=== PATIENT | male | born 1960 | race Caucasian/White ===

== ENCOUNTER 2018-07-02 12:39 | Inpatient (IN) | payer MEDICARE ==
[2018-07-02 13:18] LABS: #Eosinphils 0.1 thou/uL (0.0-0.7); #Lymphocytes 0.8 thou/uL (1.20-3.40); #Monocytes 0.6 thou/uL (0.11-0.59); %Basophils 0.7 % (0.0-1.0); %Eosinophils 2.3 % (0.0-10.0); %Lymphocytes 13.7 % (21.0-51.0); %Monocytes 10.2 % (0.0-10.0); %Neutrophils 73.2 % (42.0-75.0); Hemoglobin 11.4 g/dL (14.0-18.0); Mean Corpuscular HGB CONC 33.5 g/dL (32.0-36.0); Mean Corpuscular Hemoglobin 30.2 pg (27.0-31.0); Mean Corpuscular Volume 90.1 fL (78.0-98.0); Mean Platelet Volume 9.3 fL (7.4-10.4); Platelet Count 138 thou/uL (130-400); RBC Distribution Width 11.7 % (11.5-14.5); Red Blood Cell (RBC) Count 3.76 mill/uL (4.70-6.10); White Blood Cell (WBC) Count 5.5 thou/uL (4.8-10.8)
[2018-07-02 13:50] LABS: ALT (SGPT) 10 U/L (8-55); AST (SGOT) 12 U/L (5-34); Alkaline Phosphatase 37 U/L (40-150); Anion Gap 15 mmol/L (10-20); BUN (Urea Nitrogen) 44 mg/dL (8.4-25.7); Bilirubin, Total 0.9 mg/dL (0.2-1.2); Calc. Creatinine Clearance 0 mL/min (70-130); Calcium 8.4 mg/dL (7.8-10.44); Carbon Dioxide 27 mmol/L (22-29); Chloride 95 mmol/L (98-107); Estimated GFR-MDRD 6; Globulin 3.4 g/dL (2.4-3.5); Glucose 109 mg/dL (70-105); Potassium 3.2 mmol/L (3.5-5.1); Protein, Total 7.4 g/dL (6.0-8.3); Sodium 134 mmol/L (136-145)
--- NOTE | 2018-07-02 14:01 | RAD ---
CHEST 1 VIEW: HISTORY: Nausea. Diarrhea. COMPARISON: 04/23/2017. FINDINGS: Cardiac silhouette is magnified by projection. Pulmonary vasculature unremarkable. Mediastinum is m idline. No lobar consolidation or evidence of pneumothorax. environmental monitoring technician leads overlie the chest . IMPRESSION: No active cardiopulmonary abnormalities are demonstrated. POS: YASMINH
[2018-07-02 14:46] LABS: Bilirubin Negative (Negative); Blood, Urine Small (Negative); Clarity CLEAR (Clear); Glucose, Urine (Dipstick) 100 mg/dL (Negative); Leukocyte Large (Negative); Nitrite Negative (Negative); Protein, Urine (Dipstick) 100 mg/dL (Neg-Trace); Specific Gravity, Urine 1.007 (1.002-1.036); Urobilinogen 0.2 mg/dL (0.2-1.0)
[2018-07-02 14:49] LABS: Bacteria/HPF None Seen HPF (None Seen); Hyaline Casts/LPF 0-3 HYALINE CAST LPF (0-3 Hyaline); RBC/HPF None Seen HPF (0-3); Squamous Epithelial 0-3 HPF (0-3)
[2018-07-02 15:02] LABS: Transitional Epithelial 0-3 HPF (0-3)
[2018-07-02] MEDS ORDERED: Acetaminophen 650 MG Suppository PR PRN (16:03)
--- NOTE | 2018-07-02 16:35 | HP ---
[facility] [place] CHIEF COMPLAINT: Generalized weakness. HISTORY OF PRESENT ILLNESS: Mr. Lobato is a pleasant 57-year-old gentleman who was seen at [facility] on 07/02/2018. He initially reported that he was sent from [facility] a nd was told that he had a blood infection. 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 Mr. Lobato missed dialysis f or 20 days until he had dialysis 2 days ago. At that time, he reportedly had leukocytosis. He was s tarted on Augmentin, although it is unclear whether Mr. Lobato actually started the medication at home . He told me that he has been feeling short of breath over the last 4 days. He denied any chest brandon n. He denied any nausea or vomiting. He reported occasional cough. He also reports having diarrhea over the last 2 days. He states that he has been taking anti-motility agents at home. He tells me that dialysis center was concerned about an infection and advised him to come to the emergency room. He reports generalized weakness over the last 4 days. He reports that he mainly presented to the em ergency room because of ongoing generalized weakness. REVIEW OF SYSTEMS: All other systems reviewed and found to be negative. PAST MEDICAL HISTORY: Coronary artery disease, status post PCI with stent, end-stage renal disease o n hemodialysis once a week on Mondays, peripheral vascular disease, nonsustained ventricular tachycar al, hypertension, dyslipidemia. PAST SURGICAL HISTORY: Left femoral popliteal bypass, left ankle open reduction and internal fixatio n, AV fistula, cardiac catheterization with stenting and right subclavian hemodialysis catheter place ment. SOCIAL HISTORY: Patient chews tobacco. He denies recreational drug use or alcohol use. FAMILY HISTORY: He denies any family history of coronary artery disease. ALLERGIES: IODINATED CONTRAST MEDIA, LORAZEPAM and NIACIN. CURRENT MEDICATIONS: These need to be clarified, but appear to include Brilinta 90 mg 2 times a day. PHYSICAL EXAMINATION: GENERAL: On examination, Mr. Lobato is awake and alert, not in acute distress. VITAL SIGNS: Blood pressure is 111/77, pulse 99, respiratory rate 14 and oxygen saturation 97% on ro om air. He is afebrile. EYES: No scleral icterus. No conjunctival pallor. ENT: Moist mucosal membranes, no oropharyngeal erythema or exudates. NECK: Supple, nontender, trachea is midline. RESPIRATORY: Accessory muscles of breathing are not active. Chest wall movements are symmetric bila terally. LUNGS: Clear to auscultation without wheeze, rhonchi or crepitations. CARDIOVASCULAR: S1 and S2 are heard, regular. Peripheral pulses are palpable. No carotid bruit, no pericardial rub. ABDOMEN: Soft, nontender, bowel sounds are heard, no hepatomegaly, no splenomegaly. NEUROLOGIC: Cranial nerves II-XII intact. Deep tendon reflexes are 2+. MUSCULOSKELETAL: Power is 5/5 in all 4 extremities. SKIN: No rashes or subcutaneous nodules. He has right arm AV fistula. LYMPHATIC: No cervical lymphadenopathy. PSYCHIATRIC: Normal mood, normal affect, patient is oriented to person, place, and time. IMAGING DATA AND LABORATORY DATA: Mr. Lobato' labs and investigations were reviewed. He had a chest x-ray, which was unremarkable. He has normal white count, normocytic anemia with hemoglobin 11.4, no rmal platelet count, hyponatremia with sodium of 134, hypokalemia with potassium 3.2, elevated blood urea nitrogen of 44, elevated creatinine of 9.51, unremarkable liver profile and urinalysis that is p ositive for leukocyte esterase. ASSESSMENT AND PLAN: Mr. Lobato is a pleasant 57-year-old gentleman who was seen at [facility] on 07/02/2018. His problem list includes: 1. Generalized weakness: Etiology unclear, could be related to urinary tract infection. He will be admitted to the hospital for further management. We will also check a 12-lead electrocardiogram and troponin to rule out cardiac etiology. 2. Urinary tract infection. Urinalysis is consistent with urinary tract infection. We will start h im on ceftriaxone and follow urine cultures. 3. Electrolyte abnormalities: He has hyponatremia and hypokalemia. Nephrology Service is being con sulted for dialysis management and for electrolyte abnormalities. 4. End-stage renal disease on dialysis: Dialysis per Nephrology Service. 5. Coronary artery disease: Patient denies any chest pain. As mentioned earlier, we will check 12- lead electrocardiogram and troponin. I will start him on Brilinta if he is still taking it. Many thanks for allowing me to participate in your patient's care. Please feel free to contact me wi th any questions or concerns. LEVEL OF RISK: Moderate. LEVEL OF COMPLEXITY: Moderate.
[2018-07-02] MEDS: cefTRIAXone\\ROCEPHIN 1 GM in Sodium Chloride 0.9% 100 ML IVPB SCH (17:13)
[2018-07-02 18:26] VITALS: BMI 30.4
[2018-07-02 19:42] LABS: Troponin I 0.015 ng/mL (< 0.028)
[2018-07-02] MEDS: Heparin 5,000 UNITS/ML VIAL SC SCH (20:06)
[2018-07-02] MEDS ORDERED: TICAGRELOR 90 MG TABLET PO SCH (21:00)
[2018-07-02] MEDS: Acetaminophen 325 MG TAB PO PRN (22:52)
[2018-07-03 04:53] LABS: #Eosinphils 0.2 thou/uL (0.0-0.7); #Lymphocytes 0.8 thou/uL (1.20-3.40); #Monocytes 0.7 thou/uL (0.11-0.59); %Eosinophils 4.2 % (0.0-10.0); %Lymphocytes 17.3 % (21.0-51.0); %Monocytes 13.8 % (0.0-10.0); %Neutrophils 63.8 % (42.0-75.0); Hemoglobin 9.7 g/dL (14.0-18.0); Mean Corpuscular HGB CONC 33.6 g/dL (32.0-36.0); Mean Corpuscular Hemoglobin 30.5 pg (27.0-31.0); Mean Corpuscular Volume 90.7 fL (78.0-98.0); Mean Platelet Volume 9.2 fL (7.4-10.4); Platelet Count 124 thou/uL (130-400); RBC Distribution Width 11.7 % (11.5-14.5); Red Blood Cell (RBC) Count 3.16 mill/uL (4.70-6.10); White Blood Cell (WBC) Count 4.7 thou/uL (4.8-10.8)
[2018-07-03 05:09] LABS: Anion Gap 16 mmol/L (10-20); BUN (Urea Nitrogen) 48 mg/dL (8.4-25.7); Calc. Creatinine Clearance 12 mL/min (70-130); Calcium 7.8 mg/dL (7.8-10.44); Carbon Dioxide 25 mmol/L (22-29); Chloride 97 mmol/L (98-107); Estimated GFR-MDRD 5; Glucose 111 mg/dL (70-105); Sodium 135 mmol/L (136-145)
[2018-07-03] MEDS: Heparin 5,000 UNITS/ML VIAL SC SCH ×3 (08:09→20:56)
[2018-07-03] MEDS ORDERED: Potassium Chloride 20 MEQ TAB PO SCH (08:15)
--- NOTE | 2018-07-03 09:59 | PRG ---
DATE OF SERVICE: 07/03/2018 SUBJECTIVE: Patient was seen and examined at bedside and overnight events noted. Patient denies any shortness of breath or chest pain or palpitation. No history of nausea or vomiting or diarrhea or fever or chills or cramps. OBJECTIVE: GENERAL: This is a well-built male in no apparent distress. VITAL SIGNS: Temperature 98.3, pulse 90, respirations 18, blood pressure 96/62. HEENT: Atraumatic, normocephalic. Oral mucosa is moist. NECK: Supple. CARDIOVASCULAR: S1, S2 heard. Rate and rhythm regular. RESPIRATORY: Clear to auscultation. GASTROINTESTINAL: Abdomen is soft. MUSCULOSKELETAL: No tenderness. No edema. DERMATOLOGIC: No skin rash. NEUROLOGIC: Alert and awake and oriented x3. No focal neurologic deficits. Moving all the extremities. PSYCHIATRIC: Mood and affect normal. LABORATORY DATA: Potassium is 3.0, BUN is 40, creatinine 7.0. ASSESSMENT AND PLAN: 1. End-stage renal disease. We will continue on dialysis. 2. Hypokalemia, we will replace. 3. Edema, controlled. 4. Hypertension. 5. Anemia. 6. Bacteremia. MTDD
[2018-07-03] MEDS: cefTRIAXone\\ROCEPHIN 1 GM in Sodium Chloride 0.9% 100 ML IVPB SCH (16:32)
--- NOTE | 2018-07-03 17:36 | PDOC.PN ---
- Subjective Encounter Start Date: 07/03/18 Encounter Start Time: 07:40 Pt seen for followup re: UTI. Feels slightly better. - Objective MAR Reviewed: Yes Vital Signs & Weight: Vital Signs (12 hours) Temp Pulse Resp BP Pulse Ox 07/03/18 16:04 98.7 F 92 18 117/73 95 07/03/18 12:03 98.3 F 92 19 116/72 95 07/03/18 08:00 95 07/03/18 06:58 98.3 F 92 18 95/61 95 Weight Weight 230 lb 4 oz I&O: 07/02/18 07/03/18 07/04/18 06:59 06:59 06:59 Intake Total 1340 Output Total 1450 600 Balance -110 -600 Result Diagrams: 07/04/18 03:59 07/04/18 03:59 Additional Labs: labs reviewed by me Phys Exam - Physical Examination Obese HEENT: moist MMs, sclera anicteric, oral pharynx no lesions, 2+ tonsils Neck: no nodes, no JVD, supple, full ROM Respiratory: clear to auscultation bilateral Cardiovascular: RRR, no rub S1, S2 Gastrointestinal: soft, non-tender, no distention, positive bowel sounds Musculoskeletal: no edema Neurological: moves all 4 limbs Psychiatric: normal affect, A&O x 3 Dx/Plan (1) UTI (urinary tract infection) Status: Acute Comment: continue ceftriaxone, follow cultures (2) ESRD (end stage renal disease) on dialysis Code(s): N18.6 - END STAGE RENAL DISEASE; Z99.2 - DEPENDENCE ON RENAL DIALYSIS Status: Chronic Comment: dialysis per nephrology service (3) HTN (hypertension) Code(s): I10 - ESSENTIAL (PRIMARY) HYPERTENSION Status: Chronic Comment: controlled (4) PVD (peripheral vascular disease) Code(s): I73.9 - PERIPHERAL VASCULAR DISEASE, UNSPECIFIED Status: Chronic Comment: stable (5) CAD (coronary artery disease) Code(s): I25.10 - ATHSCL HEART DISEASE OF [place] CORONARY ARTERY W/O ANG PCTRS Status: Chronic Comment: stable, continue dyslipidemia - Plan * . Review of Systems - Review of Systems Constitutional: weakness. negative: fever, chills, sweats, malaise Respiratory: negative: Cough, Shortness of Breath, SOB with Excertion, Pleuritic Pain, Wheezing Cardiovascular: negative: chest pain, palpitations, orthopnea, paroxysmal nocturnal dyspnea, edema, light headedness Gastrointestinal: negative: Nausea, Vomiting, Abdominal Pain, Diarrhea, Constipation, Melena, Hematochezia Genitourinary: negative: Dysuria, Frequency, Incontinence, Hematuria, Retention Skin: negative: Rash, Lesions, [place], Bruising - Medications/Allergies Allergies/Adverse Reactions: Allergies Allergy/AdvReac Type Severity Reaction Status Date / Time lorazepam [From Ativan] Allergy Unknown Verified 04/24/17 01:02 niacin Allergy Unknown Verified 04/24/17 01:02 Medications: Current Medications Acetaminophen (Tylenol) 650 mg PO Q4H PRN PRN Reason: Headache/Fever/Mild Pain (1-3) Last Admin: 07/02/18 22:52 Dose: 650 mg Acetaminophen (Tylenol) 650 mg MT Q4H PRN PRN Reason: Headache/Fever/Mild Pain (1-3) Heparin Sodium (Porcine) (Heparin) 5,000 units SC TID [facility] Last Admin: 07/03/18 15:04 Dose: 5,000 units Ceftriaxone Sodium 1 gm/ (Sodium Chloride) 100 mls @ 200 mls/hr IVPB 1700 [facility] Last Admin: 07/03/18 16:32 Dose: 100 mls
[2018-07-04] MEDS: Acetaminophen 325 MG TAB PO PRN ×2 (00:21→17:24)
[2018-07-04 04:42] LABS: #Basophils 0.1 thou/uL (0.0-0.2); #Eosinphils 0.2 thou/uL (0.0-0.7); #Monocytes 0.7 thou/uL (0.11-0.59); #Neutrophils 3.9 thou/uL (1.40-6.50); %Basophils 0.9 % (0.0-1.0); %Lymphocytes 17.1 % (21.0-51.0); %Monocytes 12.1 % (0.0-10.0); %Neutrophils 65.8 % (42.0-75.0); Hemoglobin 9.7 g/dL (14.0-18.0); Mean Corpuscular HGB CONC 33.6 g/dL (32.0-36.0); Mean Corpuscular Volume 89.5 fL (78.0-98.0); Mean Platelet Volume 8.9 fL (7.4-10.4); Platelet Count 143 thou/uL (130-400); RBC Distribution Width 11.8 % (11.5-14.5); Red Blood Cell (RBC) Count 3.21 mill/uL (4.70-6.10); White Blood Cell (WBC) Count 5.9 thou/uL (4.8-10.8)
[2018-07-04 04:45] LABS: Anion Gap 15 mmol/L (10-20); BUN (Urea Nitrogen) 50 mg/dL (8.4-25.7); Calc. Creatinine Clearance 11 mL/min (70-130); Calcium 7.7 mg/dL (7.8-10.44); Carbon Dioxide 23 mmol/L (22-29); Chloride 101 mmol/L (98-107); Estimated GFR-MDRD 5; Glucose 104 mg/dL (70-105); Potassium 3.1 mmol/L (3.5-5.1); Sodium 136 mmol/L (136-145)
--- NOTE | 2018-07-04 07:34 | EKG ---
Test Reason : Blood Pressure : / mmHG Vent. Rate : 097 BPM Atrial Rate : 097 BPM P-R Int : 200 ms QRS Dur : 094 ms QT Int : 396 ms P-R-T Axes : 059 -82 071 degrees QTc Int : 502 ms Normal sinus rhythm Low voltage QRS Limb leads Left anterior fascicular block Inferior-posterior infarct (cited on or before 01-DEC-2007) Prolonged QT Abnormal ECG When compared with ECG of 23-APR-2017 19:41, Premature ventricular complexes are no longer Present Confirmed by FAISAL MARTINEZ ([id number]) on 07/04/2018 7:34:41 AM Referred By: Confirmed By:FAISAL MARTINEZ
[2018-07-04] MEDS: Heparin 5,000 UNITS/ML VIAL SC SCH ×3 (09:02→21:58)
[2018-07-04] MEDS: Potassium Chloride 20 MEQ TAB PO SCH ×2 (11:26→15:52)
[2018-07-04] MEDS: Azithromycin 250 MG TAB PO SCH (11:26)
--- NOTE | 2018-07-04 14:32 | PRG ---
DATE OF SERVICE: 07/04/2018 SUBJECTIVE: Patient was seen and examined at bedside and overnight events noted. Patient denies any shortness of breath or chest pain or palpitation. No history of nausea or vomitin g or diarrhea or fever or chills or cramps. OBJECTIVE: GENERAL: This is a well-built male in no apparent distress. VITAL SIGNS: Temperature , pulse 93, respiratory rate 18, blood pressure 124/68. HEENT: Atraumatic, normocephalic. Oral mucosa is moist. NECK: Supple. CARDIOVASCULAR: S1 and S2 heard. Rate and rhythm regular. RESPIRATORY: Clear to auscultation. GASTROINTESTINAL: Abdomen is soft. MUSCULOSKELETAL: No tenderness. No edema. DERMATOLOGIC: No skin rash. NEUROLOGIC: Alert and awake and oriented x3. No focal neurologic deficits. Moving all the extremit ies. PSYCHIATRIC: Mood and affect normal. LABORATORY DATA: Potassium was 3.1, BUN is 50, creatinine is 10.7. ASSESSMENT AND PLAN: 1. End-stage renal disease, on hemodialysis. Patient has once a week dialysis as outpatient. We wi ll continue dialysis. He gets dialysis on Wednesdays. We will continue to monitor and we will have dialysis as tolerated. 2. Hypokalemia. I agree with replacement with cautious monitoring. 3. Edema, controlled. 4. Hypertension. 5. Anemia. 6. Bacteremia. Repeat cultures negative in the hospital, but patient is feeling better with antibiotics. We will co ntinue to monitor and have dialysis as tolerated.
--- NOTE | 2018-07-04 15:37 | PDOC.PN ---
- Subjective Encounter Start Date: 07/04/18 Encounter Start Time: 15:36 Pt seen for followup re: UTI. Weakness better, but still present. - Objective MAR Reviewed: Yes Vital Signs & Weight: Vital Signs (12 hours) Temp Pulse Resp BP Pulse Ox 07/04/18 11:20 98.1 F 93 18 124/68 95 07/04/18 08:00 95 07/04/18 07:22 97.9 F 93 18 96/65 95 07/04/18 04:00 97.7 F 95 18 145/81 H 98 Weight Weight 230 lb 4 oz I&O: 07/03/18 07/04/18 07/05/18 06:59 06:59 06:59 Intake Total 1340 640 240 Output Total 1450 1000 Balance -110 -360 240 Result Diagrams: 07/04/18 03:59 07/04/18 03:59 Additional Labs: Labs reviewed by me Phys Exam - Physical Examination Obese HEENT: moist MMs Neck: supple Respiratory: clear to auscultation bilateral Cardiovascular: RRR Gastrointestinal: soft Neurological: non-focal, normal sensation, moves all 4 limbs reflexes preserved Psychiatric: normal affect Dx/Plan (1) UTI (urinary tract infection) Status: Acute Comment: will continue ceftriaxone and follow cultures (2) Campylobacter diarrhea Code(s): A04.5 - CAMPYLOBACTER ENTERITIS Status: Acute Comment: start azithromycin. Discussed with pt re: symptoms of GBS. (3) ESRD (end stage renal disease) on dialysis Code(s): N18.6 - END STAGE RENAL DISEASE; Z99.2 - DEPENDENCE ON RENAL DIALYSIS Status: Chronic Comment: dialysis per nephrology service (4) HTN (hypertension) Code(s): I10 - ESSENTIAL (PRIMARY) HYPERTENSION Status: Chronic Comment: controlled (5) PVD (peripheral vascular disease) Code(s): I73.9 - PERIPHERAL VASCULAR DISEASE, UNSPECIFIED Status: Chronic Comment: stable (6) CAD (coronary artery disease) Code(s): I25.10 - ATHSCL HEART DISEASE OF [place] CORONARY ARTERY W/O ANG PCTRS Status: Chronic Comment: stable, continue dyslipidemia - Plan * . Review of Systems - Review of Systems Constitutional: weakness. negative: fever, chills, sweats, malaise Cardiovascular: negative: chest pain, palpitations, orthopnea, paroxysmal nocturnal dyspnea, edema, light headedness Gastrointestinal: Diarrhea. negative: Nausea, Vomiting, Abdominal Pain, Constipation, Melena, Hematochezia - Medications/Allergies Allergies/Adverse Reactions: Allergies Allergy/AdvReac Type Severity Reaction Status Date / Time lorazepam [From Ativan] Allergy Unknown Verified 04/24/17 01:02 niacin Allergy Unknown Verified 04/24/17 01:02 Medications: Current Medications Acetaminophen (Tylenol) 650 mg PO Q4H PRN PRN Reason: Headache/Fever/Mild Pain (1-3) Last Admin: 07/04/18 00:21 Dose: 650 mg Acetaminophen (Tylenol) 650 mg MS Q4H PRN PRN Reason: Headache/Fever/Mild Pain (1-3) Azithromycin (Zithromax) 500 mg PO 1200 [facility] Stop: 07/08/18 12:01 Last Admin: 07/04/18 11:26 Dose: 500 mg Heparin Sodium (Porcine) (Heparin) 5,000 units SC TID [facility] Last Admin: 07/04/18 09:02 Dose: Not Given Ceftriaxone Sodium 1 gm/ (Sodium Chloride) 100 mls @ 200 mls/hr IVPB 1700 [facility] Last Admin: 07/03/18 16:32 Dose: 100 mls
[2018-07-04] MEDS: cefTRIAXone\\ROCEPHIN 1 GM in Sodium Chloride 0.9% 100 ML IVPB SCH (17:19)
[2018-07-05 04:39] LABS: #Basophils 0.1 thou/uL (0.0-0.2); #Eosinphils 0.3 thou/uL (0.0-0.7); #Lymphocytes 1.5 thou/uL (1.20-3.40); #Monocytes 0.7 thou/uL (0.11-0.59); #Neutrophils 3.1 thou/uL (1.40-6.50); %Basophils 1.5 % (0.0-1.0); %Eosinophils 5.2 % (0.0-10.0); %Monocytes 12.8 % (0.0-10.0); %Neutrophils 54.6 % (42.0-75.0); Hemoglobin 9.8 g/dL (14.0-18.0); Mean Corpuscular HGB CONC 33.9 g/dL (32.0-36.0); Mean Corpuscular Hemoglobin 30.5 pg (27.0-31.0); Mean Platelet Volume 8.7 fL (7.4-10.4); Platelet Count 162 thou/uL (130-400); RBC Distribution Width 11.8 % (11.5-14.5); Red Blood Cell (RBC) Count 3.21 mill/uL (4.70-6.10); White Blood Cell (WBC) Count 5.6 thou/uL (4.8-10.8)
[2018-07-05 04:48] LABS: Anion Gap 16 mmol/L (10-20); BUN (Urea Nitrogen) 49 mg/dL (8.4-25.7); Calc. Creatinine Clearance 11 mL/min (70-130); Calcium 7.7 mg/dL (7.8-10.44); Carbon Dioxide 21 mmol/L (22-29); Chloride 105 mmol/L (98-107); Estimated GFR-MDRD 5; Glucose 94 mg/dL (70-105); Potassium 3.9 mmol/L (3.5-5.1); Sodium 138 mmol/L (136-145)
[2018-07-05 07:14] VITALS: BP 104/68; TEMP 98
[2018-07-05] MEDS: Heparin 5,000 UNITS/ML VIAL SC SCH (07:38)
--- NOTE | 2018-07-05 09:59 | CON ---
DATE OF CONSULTATION: 07/02/2018 CONSULTING PHYSICIAN: Jan Castelan M.D. REASON FOR CONSULTATION: End-stage renal disease evaluation. REASON FOR ADMISSION: Possible sepsis bacteremia. HISTORY OF PRESENT ILLNESS: A 56-year-old white male with history of end-stage renal disease, hammond ry artery disease, peripheral vascular disease, who came to the hospital with a concern for bacteremi a. I believe the patient had an outpatient culture done which was returning positive and also advise d to come to the hospital. The patient having chills 2 days back. No fever, no nausea, vomiting, no chest pain reported. PAST MEDICAL HISTORY: Positive for end-stage renal disease, coronary artery disease, peripheral vasc ular disease, ventricular tachycardia, nonsustained. PAST SURGICAL HISTORY: Dialysis access placement, PD catheter. HOME MEDICATION: List needs to be updated. ALLERGIES: LORAZEPAM and NIACIN. SOCIAL HISTORY: No smoking, alcohol, or illicit drug abuse reported. FAMILY HISTORY: The patient had heart disease and kidney disease in the family. Patient does have p olycystic kidney disease in the family. REVIEW OF SYSTEMS: The following complete review of systems was negative, unless otherwise mentioned in the HPI or below: Constitutional: Weight loss or gain, ability to conduct usual activities. Sk in: Rash, itching. Eyes: Double vision, pain. ENT/Mouth: Nose bleeding, neck stiffness, pain, te nderness. Cardiovascular: Palpitations, dyspnea on exertion, orthopnea. Respiratory: Shortness of breath, wheezing, cough, hemoptysis, fever or night sweats. Gastrointestinal: Poor appetite, abdom inal pain, heartburn, nausea, vomiting, constipation, or diarrhea. Genitourinary: Urgency, frequenc y, dysuria, nocturia. Musculoskeletal: Pain, swelling. Neurologic/Psychiatric: Anxiety, depressio n. Allergy/Immunologic: Skin rash, bleeding tendency. PHYSICAL EXAMINATION: GENERAL: This is a well-built male, in no apparent distress. VITAL SIGNS: Temperature afebrile, pulse 70, respiratory 18, blood pressure 114/69. HEENT: Atraumatic, normocephalic. Oral mucosa is moist. NECK: Supple, no masses. HEART: S1, S2. Rate and rhythm regular. RESPIRATORY: Clear. GASTROINTESTINAL: Abdomen is soft. MUSCULOSKELETAL: No tenderness or edema. DERMATOLOGIC: No skin rash. NEUROLOGIC: Alert, awake. . LABORATORY DATA: Hemoglobin is 11.4, potassium 3.2, BUN 44, creatinine 1.5. ASSESSMENT AND PLAN: 1. End-stage renal disease, no acute indication for dialysis. We will continue on dialysis as johanne ated. The patient does get only once a week dialysis. 2. Hypokalemia, replace and monitor. 3. Hypertension, stable. 4. No acute indication for dialysis, will monitor.
--- NOTE | 2018-07-05 10:57 | PRG ---
DATE OF SERVICE: 07/05/2018 SUBJECTIVE: A 57-year-old gentleman being seen for end-stage renal disease. The patient denies any nausea, vomiting or chest pain. PHYSICAL EXAMINATION: GENERAL: Patient is awake. VITAL SIGNS: Pulse 75, breathing 16, blood pressure 104/60. OBJECTIVE: See above. Awake, alert, in no acute distress. GENERAL APPEARANCE AND MENTAL STATUS: Fair. HEAD/NECK: Normocephalic. Atraumatic. EYES: EOMI. No deformity. EARS: Clear. No ulcers. NOSE: Intact. No lesions. MOUTH: Clear. No discharge. THROAT: Clear. No exudate. LUNGS: Clear. No crackles. CARDIAC: S1, S2. No rub. ABDOMEN: Benign. BS+. GENITALIA/RECTUM: Sosa absent. BACK/EXTREMITIES: Edema 0+ Ulcer- NEUROLOGICAL: Alert and motor intact. SKIN: Rash- Bruise- LYMPHATICS: Edema- Ulcer- LABORATORY DATA: Show hemoglobin 9.8, potassium 3.9, creatinine 11.1 ASSESSMENT AND RECOMMENDATIONS: 1. Stage 6 chronic kidney disease. We will plan dialysis. 2. Hypertension, stable. 3. Anemia, stable. 4. Medications based on glomerular filtration rate are appropriate.
[2018-07-05] MEDS ORDERED: TICAGRELOR 90 MG TABLET PO SCH (12:00)
--- NOTE | 2018-07-05 12:55 | DIS ---
DATE OF ADMISSION: 07/02/2018 DATE OF DISCHARGE: 07/05/2018 PRIMARY CARE PROVIDER: [facility] in [place]. DISCHARGE DIAGNOSES: 1. Campylobacter diarrhea. 2. Generalized weakness. 3. Urinary tract infection ruled out. 4. Hypokalemia. CONDITION OF PATIENT ON THE DAY OF DISCHARGE: Stable. I assessed Mr. Lobato on the day of discharge. He reports the diarrhea is improving. He feels stronger. He is ambulating in the hallways. Vital signs are stable. S1 and S2 are heard, regular. Lungs are clear to auscultation bilaterally. Neur ologic examination is nonfocal, deep tendon reflexes are 2+. DISCHARGE MEDICATIONS: Azithromycin 500 mg daily for 4 more days and Brilinta 90 mg 2 times a day. HOSPITAL COURSE: Mr. Lobato is a pleasant 57-year-old gentleman who was admitted to [facility] on 07/02/2018 for generalized weakness and suspected infection. Please refer to my history and physical note dated 07/02/2018 for further details. Urinary tract infection was suspecte d and he was treated with ceftriaxone. He also had diarrhea at the time of admission. Stool studies showed that he was positive for Campylobacter antigen. He has been started on azithromycin with imp rovement of diarrhea as well as improvement in generalized weakness. Preliminary blood cultures are negative at the time of this dictation, and patient has been advised t o follow up with his primary care provider for final report. The final urine culture showed normal s kin sanju. Preliminary stool cultures showed many normal enteric sanju and no E. coli O157 isolated at 24 hours. The patient has been advised to follow up with his primary care provider for final stoo l culture report as well. The patient was also seen by Nephrology, Dr. Keita during this hospitalization since he is a dialys is patient. He did not receive dialysis during this hospitalization. Given the diagnosis of Campylobacter diarrhea, I discussed with him regarding being on the outlook fo r symptoms of Guillain-[place] syndrome. He has been advised to seek medical help for any new or worse nathaniel symptoms. Patient stated understanding. The patient was also hypokalemic during this hospitalization and received potassium supplements. On the day of discharge, he has white count 5600, hemoglobin 9.8, platelet count 162,000. Sodium 138 , potassium 3.9, and creatinine 11.10. Many thanks for allowing me to participate in your patient's care. Please feel free to contact me wi th any questions or concerns. DISCHARGE DESTINATION: Home. TOTAL AMOUNT OF TIME SPENT COORDINATING THIS DISCHARGE: 32 minutes.
[2018-07-05] MEDS: Azithromycin 250 MG TAB PO SCH (14:11)
== END 2018-07-05 14:15 | disposition home or self-care (01) | DRG 371 ==
LOC: ERS 12:39 → T4-B 16:24
PROVIDERS: ADMIT Internal Medicine; ATTEND Internal Medicine
DX: A04.5 Campylobacter enteritis (principal); N18.6 End stage renal disease; I12.0 Hypertensive chronic kidney disease with stage 5 chronic kidney disease or end stage renal disease; I47.2 Ventricular tachycardia; E87.1 Hypo-osmolality and hyponatremia; Z99.2 Dependence on renal dialysis; Z91.15 Patient's noncompliance with renal dialysis; I25.10 Atherosclerotic heart disease of native coronary artery without angina pectoris; Z95.5 Presence of coronary angioplasty implant and graft; I73.9 Peripheral vascular disease, unspecified; E78.5 Hyperlipidemia, unspecified; Z88.8 Allergy status to other drugs, medicaments and biological substances; E87.6 Hypokalemia; D63.1 Anemia in chronic kidney disease
CPT/HCPCS: 36415; 71045; 80048; 80053; 81003; 81015; 83605; 84484; 85025; 87040; 87045; 87046; 87081; 87086; 87324; 87449; 87899; 93005; 93010; J0696; J1644; J7050

== ENCOUNTER 2019-09-23 08:23 | Inpatient (IN) | payer MEDICARE ==
[2019-09-23 08:55] LABS: #Basophils 0.1 thou/uL (0.0-0.2); #Eosinphils 0.5 thou/uL (0.0-0.7); #Lymphocytes 1.4 thou/uL (1.20-3.40); #Monocytes 0.6 thou/uL (0.11-0.59); #Neutrophils 6.3 thou/uL (1.40-6.50); %Basophils 0.7 % (0.0-1.0); %Eosinophils 5.9 % (0.0-10.0); %Lymphocytes 15.4 % (21.0-51.0); %Monocytes 6.4 % (0.0-10.0); %Neutrophils 71.5 % (42.0-75.0); Hemoglobin 11.1 g/dL (14.0-18.0); Mean Corpuscular HGB CONC 33.7 g/dL (32.0-36.0); Mean Corpuscular Hemoglobin 31.4 pg (27.0-31.0); Mean Corpuscular Volume 93.3 fL (78.0-98.0); Mean Platelet Volume 8.6 fL (7.4-10.4); Platelet Count 145 thou/uL (130-400); RBC Distribution Width 12.4 % (11.5-14.5); Red Blood Cell (RBC) Count 3.53 mill/uL (4.70-6.10); White Blood Cell (WBC) Count 8.8 thou/uL (4.8-10.8)
--- NOTE | 2019-09-23 08:56 | RAD ---
PORTABLE CHEST 1 VIEW: DATE: 09/23/2019. TIME: 8:21 a.m. HISTORY: Chest pain. FINDINGS: Comparison is made with the exam of 07/02/2018. The heart size is normal. No lobar consolidation, pneumothoraces or large pleural effusions are seen . There is blunting of the left costophrenic angle which may be due to scarring or small effusion. POS: [facility]
[2019-09-23 09:21] LABS: Albumin 3.9 g/dL (3.5-5.0)
[2019-09-23 09:22] LABS: Chloride 111 mmol/L (98-107); Potassium 5.3 mmol/L (3.5-5.1); Sodium 140 mmol/L (136-145)
[2019-09-23 09:23] LABS: Calcium 8.2 mg/dL (7.8-10.44); Glucose 91 mg/dL (70-105)
[2019-09-23 09:24] LABS: Globulin 2.5 g/dL (2.4-3.5); Protein, Total 6.4 g/dL (6.0-8.3)
[2019-09-23 09:25] LABS: Bilirubin, Total 0.6 mg/dL (0.2-1.2); Carbon Dioxide 16 mmol/L (22-29)
[2019-09-23 09:26] LABS: Alkaline Phosphatase 33 U/L (40-110)
[2019-09-23 09:27] LABS: Calc. Creatinine Clearance 0 mL/min (70-130); Estimated GFR-MDRD 4
[2019-09-23 09:28] LABS: BUN (Urea Nitrogen) 54 mg/dL (8.4-25.7)
[2019-09-23 09:29] LABS: ALT (SGPT) 8 U/L (8-55); AST (SGOT) 9 U/L (5-34)
[2019-09-23 09:42] LABS: CKMB 2.3 ng/mL (0-6.6)
[2019-09-23 10:12] LABS: Anion Gap 18 mmol/L (10-20)
[2019-09-23 13:48] LABS: Troponin I 0.031 ng/mL (< 0.028)
[2019-09-23 15:39] VITALS: BMI 33.0
[2019-09-23] MEDS ORDERED: Ondansetron PF 4 MG/2 ML Vial IVP PRN (15:55)
[2019-09-23] MEDS ORDERED: Ondansetron ODT 4 MG TAB PO PRN (15:55)
[2019-09-23] MEDS ORDERED: hydrALAZINE 20 MG/ML VIAL SLOW IVP PRN (15:55)
[2019-09-23] MEDS ORDERED: Labetalol HCl 100 MG/20 ML VIAL SLOW IVP PRN (15:55)
[2019-09-23 16:23] LABS: Troponin I Less than 0.010 ng/mL (< 0.028)
[2019-09-23] MEDS: Carvedilol 3.125 MG TAB PO SCH (17:10)
[2019-09-23] MEDS ORDERED: Lidocaine 2% 20 ml MDV SC SCH (17:30)
--- NOTE | 2019-09-23 17:45 | CON ---
DATE OF CONSULTATION: 09/23/2019 PRIMARY PEG DRIVER: Dillon Alvarez MD. REASON FOR CONSULTATION: Chest pain. HISTORY OF PRESENT ILLNESS: Mr. Lobato is a very pleasant 58-year-old white gentleman who comes to the hospital for chest pain. 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 This morning, he had the pain at rest. He became very concerned. He was nauseated and vomiting, and this would not go away, so he decided to come in for evaluation. He has a significant history of coronary artery disease. He has had stents placed in the past. He also has significant peripheral vascular disease with left fem-popliteal bypass. He has had some substance abuse in the past, but nothing recently. He decided to come in, and so far, troponins have been negative. Cardiology has been consulted for further evaluation and care. PAST MEDICAL HISTORY: 1. Hyperlipidemia. 2. CKD, secondary to polycystic kidney disease and now end-stage renal disease, on hemodialysis. He should be doing this three times a week, but he is only doing it once a week. 3. Coronary artery disease with stents placed in the past. 4. Hypertension. 5. Peripheral vascular disease, status post left femoral-popliteal bypass. 6. Polysubstance abuse in the past. 7. Left great toe gangrene in the past. PAST SURGICAL HISTORY: 1. Left ankle surgery. 2. Coronary stents x3. 3. Left femoral-popliteal bypass. OUTPATIENT MEDICATIONS: Brilinta 90 mg b.i.d. The only medicine he is taking. He should be on several others; he says he is not taking any of the medicines. ALLERGIES: LORAZEPAM AND NIACIN. SOCIAL HISTORY: Social drinker. Continues to smoke about a pack a day. Also chews tobacco. No recent drug use. FAMILY HISTORY: Positive for early coronary artery disease. REVIEW OF SYSTEMS: A 12-point review of systems was done and was all negative unless stated in the History of Present Illness. PHYSICAL EXAMINATION: VITAL SIGNS: Temperature 97.8, pulse 93, respiratory rate 24, saturation is 99% on room air, and blood pressure 155/79. GENERAL: Awake, alert, and oriented x3. No distress. HEENT: Normocephalic, atraumatic. NECK: Supple. LUNGS: Reduced breath sounds. ABDOMEN: Soft. Positive bowel sounds. CARDIOVASCULAR: S1 and S2. No S3 or S4. There is a very soft grade 2/6 systolic murmur at the right upper sternal border. ABDOMEN: Soft. Positive bowel sounds. EXTREMITIES: No edema. SKIN: Warm and dry. LABORATORY DATA: Laboratory work was reviewed. CBC with a white count of 8, hemoglobin of 11, hematocrit of 32, and platelet count of 145. Chemistry; potassium is 5.3, BUN 54, creatinine 12.1. Troponin was 0.03, 0.03, and less than 0.01. CK-MB was normal. EKG was reviewed. ASSESSMENT: 1. Unstable angina. 2. History of coronary artery disease. 3. End-stage renal disease, on hemodialysis. 4. Medication noncompliance. 5. Continued tobacco use. PLAN: 1. He is certainly at high risk for ischemia. We will plan on further risk stratification with a heart catheterization. He is in agreement with this. He was concerned about what is going on. He wants to figure this out. We spoke with the risks and benefits of the procedure. Risks included, but not limited to stroke, VT, , bleeding, need for blood transfusion, limb loss, organ loss. We also spoke about complications of stenting including dissecting the artery, needing for emergency bypass surgery, high risk of bleeding, inability due to stent the arteries or giving him like a high risk of myocardial infarction. He understands, verbalized understanding of this, and agrees to proceed. We also spoke about conscious sedation. He agrees to proceed with this as well. 2. We will plan on doing this on Thursday. Right groin approach. Bare metal stents if needed, given medication noncompliance. 3. Echocardiogram pending. Thank you for letting us to participate in the care of your patient. We will follow. Job ID: [id number]
[2019-09-23 17:47] LABS: HBSAg Index 0.27 S/CO (0-0.99); Hep B Surf Ag Non-Reactive S/CO (NonReactive)
--- NOTE | 2019-09-23 20:26 | CON ---
DATE OF CONSULTATION: 09/23/2019 REASON FOR CONSULT: End-stage renal disease evaluation and care. REASON FOR ADMISSION: Chest pain. CONSULTATION PHYSICIAN: Emiliano Velazquez. HISTORY OF PRESENT ILLNESS: This is a 58-year-old male with history of end-stage renal disease, hypertension, polycystic kidney disease, came to the hospital with chest pain. He gets dialysis on Mondays, last dialysis was on Thursday. No fever or chills. No nausea or vomiting. The patient was found to be hyperkalemic. PAST MEDICAL HISTORY: Positive for end-stage renal disease, hyperlipidemia, polycystic renal disease, and coronary artery disease. PAST SURGICAL HISTORY: Dialysis access placement, coronary stents, orthopedic surgery. ALLERGIES: LORAZEPAM AND NIACIN. SOCIAL HISTORY: No smoking, alcohol or illicit drug abuse. FAMILY HISTORY: No history of kidney disease. REVIEW OF SYSTEMS: CONSTITUTIONAL: Negative for weight loss or gain, ability to conduct usual activities. SKIN: Negative for rash, itching. EYES: Negative for double vision, pain. ENT/MOUTH: Negative for nose bleeding, neck stiffness, pain, tenderness. CARDIOVASCULAR: Negative for palpitations, dyspnea on exertion, orthopnea. RESPIRATORY: Negative for shortness of breath, wheezing, cough, hemoptysis, fever or night sweats. GASTROINTESTINAL: Negative for poor appetite, abdominal pain, heartburn, nausea, vomiting, constipation, or diarrhea. GENITOURINARY: Negative for urgency, frequency, dysuria, nocturia. MUSCULOSKELETAL: Negative for pain, swelling. NEUROLOGIC/PSYCHIATRIC: Negative for anxiety, depression. ALLERGY/IMMUNOLOGIC: Negative for skin rash, bleeding tendency. PHYSICAL EXAMINATION: GENERAL: This is a well-built male, in no apparent distress. VITAL SIGNS: Temperature 98.3, pulse 98, respiratory rate 16, blood pressure 121/67. HEENT: Atraumatic, normocephalic. Oral mucosa moist. NECK: Supple. CV: S1, S2 heard. Rate and rhythm regular. RESPIRATORY: Clear. GI: Abdomen is soft. MUSCULOSKELETAL: 1+ edema. DERMATOLOGIC: No skin rash. NEUROLOGIC: Alert and awake. PSYCHIATRIC: Mood and affect normal. LABORATORY DATA: Hemoglobin 11.1, potassium 5.3, BUN is 54, and creatinine is 12.1. ASSESSMENT AND PLAN: 1. End-stage renal disease, continue on dialysis. Plan is to have 2 hours of dialysis today. 2. Hyperkalemia. Limit potassium. 3. Acidosis. Will have dialysis. 4. Anemia of chronic disease. 5. Hypertension. 6. Plan to have 2 hours of dialysis to which the patient is agreeable. He does not want run any longer. We will continue on dialysis as tolerated. Job ID: [id number]
[2019-09-23] MEDS: Nitroglycerin 2% Ointment 1 INCH/1 GM Packet TOP SCH (21:06)
[2019-09-23] MEDS: Famotidine 20 MG TAB PO SCH (21:06)
[2019-09-23] MEDS: Acetaminophen 500 MG TAB PO PRN (21:06)
[2019-09-23] MEDS: TICAGRELOR 90 MG TABLET PO SCH (21:06)
[2019-09-23] MEDS ORDERED: Calcium Carbonate 500 MG ChewTAB PO SCH (22:30)
--- NOTE | 2019-09-24 01:36 | HP ---
PRIMARY CARE PROVIDER: [facility], [place], [place]. CHIEF COMPLAINT: Chest pain. HISTORY OF PRESENT ILLNESS: This is a 58-year-old male, who presents to [facility] complaining of crushing central chest pressure with associated left arm pain and nausea. 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 The patient states he typically has single symptom such as left arm pain or nausea, but he had all 3 symptoms at the same time and became concerned. The patient admits to history of coronary artery disease, undergoing cardiac stent placement by Dr. Funez several years prior to this evaluation. The patient takes Brilinta daily and calcium carbonate. The patient also states he takes handfuls of aspirin when he has chest pain or musculoskeletal pain on an intermittent basis. The patient admits to continuing smoking up to a pack of cigarettes daily and undergoing routine hemodialysis one time per week due to end-stage renal disease secondarily to polycystic kidney disease. The patient denies any increased swelling, orthopnea, or difficulty laying flat. The patient does admit to dyspnea on exertion with minor activity or feeding his animals. The patient denied any recent trauma, injury, cough, congestion, or fever. The patient denied any recent travel history or unilateral swelling of his lower extremities. In the emergency room, the patient underwent general evaluation including troponin I assessment showing a mild elevation in the 0.03 range. The patient received aspirin 324 mg without acute changes on EKG or chest imaging. PAST MEDICAL HISTORY: 1. Coronary artery disease, status post cardiac stent placement. 2. Tobacco abuse ongoing. 3. End-stage renal disease secondary to polycystic kidney disease, on hemodialysis 1 time per week. 4. Peripheral vascular disease. 5. Hypertension. 6. Dyslipidemia. PAST SURGICAL HISTORY: 1. Status post left femoral popliteal bypass. 2. Status post open reduction and internal fixation of left ankle fracture. 3. Status post AV fistula placement in the right upper extremity. 4. Status post cardiac catheterization with cardiac stent placement. 5. Status post right subclavian hemodialysis catheter placement with subsequent removal. CURRENT MEDICATIONS: 1. Brilinta 90 mg p.o. b.i.d. 2. Sodium bicarbonate 650 mg p.o. t.i.d. p.r.n. ALLERGIES: LORAZEPAM AND NIACIN. FAMILY HISTORY: Positive for hypertension and coronary artery disease. SOCIAL HISTORY: Resides in [place], [place]. Disabled. . Smokes up to half a pack to one pack of cigarettes daily. Occasional alcohol use. No illicit drug use. REVIEW OF SYSTEMS: CONSTITUTIONAL: Negative for weight loss or gain, ability to conduct usual activities. SKIN: Negative for rash, itching. EYES: Negative for double vision, pain. ENT/MOUTH: Negative for nose bleeding, neck stiffness, pain, tenderness. CARDIOVASCULAR: Negative for palpitations, dyspnea on exertion, orthopnea. RESPIRATORY: Negative for shortness of breath, wheezing, cough, hemoptysis, fever or night sweats. GASTROINTESTINAL: Negative for poor appetite, abdominal pain, heartburn, nausea, vomiting, constipation, or diarrhea. GENITOURINARY: Negative for urgency, frequency, dysuria, nocturia. MUSCULOSKELETAL: Negative for pain, swelling. NEUROLOGIC/PSYCHIATRIC: Negative for anxiety, depression. ALLERGY/IMMUNOLOGIC: Negative for skin rash, bleeding tendency. Otherwise negative except as stated per HPI. PHYSICAL EXAMINATION: VITAL SIGNS: On admission, blood pressure 121/67, pulse 98, respiratory rate 16, temperature 98.3 degrees Fahrenheit, O2 saturation 95% on room air. GENERAL APPEARANCE: This is a 58-year-old male, alert and oriented x3, pleasant, responsive, in no acute distress. HEENT: Pupils are equal, round, reactive to light and accommodation. Extraocular muscles are intact. No scleral icterus. No conjunctival injection. Nares patent. OP is clear. Teeth in poor repair with nicotine staining. NECK: Supple. No cervical adenopathy. No thyromegaly. No carotid bruits. No JVD appreciated. Cervical spine with full active and passive range of motion. No meningeal signs noted. CHEST: Diminished breath sounds in the bases bilaterally. CARDIOVASCULAR: S1 and S2 with distant heart sounds. No murmur, rub, or gallop appreciated. ABDOMEN: Obese, soft, nontender, and nondistended. Bowel sounds are positive in all 4 quadrants. There is no hepatosplenomegaly. No abdominal bruits. No rebound or guarding appreciated. EXTREMITIES: Warm and dry with fair turgor. No clubbing, cyanosis, or asymmetric edema appreciated. Pulses diminished, but palpable at the dorsalis pedis, posterior tibial, and popliteal arteries bilaterally. Capillary refill less than 2 seconds. Right upper extremity with AV fistula in place. NEUROLOGIC: Cranial nerves 2 through 12 are grossly intact. No focal or lateralizing signs appreciated. PERTINENT LABORATORY AND X-RAY FINDINGS: Sodium 140, potassium 5.3, chloride 111, CO2 of 16, BUN 54, creatinine 12.17. Estimated GFR 4. Glucose 91, calcium 8.2. LFTs within normal limits. Troponin I ranged between 0.031 to 0.033. CBC showed a white blood cell count 8.8, hemoglobin 11, hematocrit 33 platelet count 145. Portable chest x-ray dated 09/23/2019 showed blunting of the left costophrenic angle. EKG dated 09/23/2019 by my interpretation shows sinus mechanism with heart rates in the 90s. Normal R-wave progression noted in the precordial leads. Left axis deviation noted. No acute ST-T wave changes appreciated. ASSESSMENT AND PLAN: 1. Chest pain. The patient will be observed on the telemetry unit. High suspicion for angina given the patient's multiple risk factors including previous coronary artery disease, end-stage renal disease and ongoing tobacco use. We will consult Cardiology Service for further evaluation and likely cardiac catheterization to further define coronary anatomy. Check 2D transthoracic echocardiogram for ejection fraction and valvular function. Continue aspirin 324 mg daily. Resume Brilinta 90 mg b.i.d. Transdermal nitroglycerin q.8 hours. 2. End-stage renal disease with hemodialysis. Consult Nephrology Service for timing of next hemodialysis session. No current evidence of acute volume overload. 3. Coronary artery disease. See #1 above. Check fasting lipid profile in the a.m. 4. Anemia of chronic kidney disease. No current evidence to suggest acute blood loss. Repeat CBC in the a.m. 5. Tobacco abuse. We will offer smoking cessation resources prior to discharge. 6. Prophylaxis. SCDs while in bed. Pepcid 20 mg p.o. b.i.d.. CODE STATUS: Full. Surrogate medical decision maker is the patient's spouse. Job ID: [id number]
[2019-09-24] MEDS ORDERED: Sodium Chloride 0.65% Nasal 44 ML BOT EA NARE PRN (02:53)
[2019-09-24 05:27] LABS: Band 8 % (5-11); Eosinophils 3 % (0-10); Lymphocytes 11 % (21-51); MDiff Complete? YES; Mean Corpuscular HGB CONC 32.4 g/dL (32.0-36.0); Mean Corpuscular Volume 92.4 fL (78.0-98.0); Mean Platelet Volume 8.5 fL (7.4-10.4); Monocytes 1 % (0-10); Neutrophil 77 % (42-75); Platelet Count 119 thou/uL (130-400); Platelet Morphology Comment Appears Decreased; RBC Distribution Width 12.3 % (11.5-14.5); RBC Morphology Normal; Red Blood Cell (RBC) Count 3.33 mill/uL (4.70-6.10); White Blood Cell (WBC) Count 6.5 thou/uL (4.8-10.8)
[2019-09-24 05:35] LABS: Anion Gap 15 mmol/L (10-20); BUN (Urea Nitrogen) 41 mg/dL (8.4-25.7); Calc. Creatinine Clearance 13 mL/min (70-130); Calcium 8.2 mg/dL (7.8-10.44); Carbon Dioxide 21 mmol/L (22-29); Cardiac Risk 6.3 (Less than 4.5); Chloride 106 mmol/L (98-107); Cholesterol 133 mg/dl (< 200 Desired); Estimated GFR-MDRD 6; Glucose 114 mg/dL (70-105); HDL Cholesterol 21 mg/dL (>60 Neg Risk); LDL Cholesterol, Calculated 86 mg/dL; Potassium 3.9 mmol/L (3.5-5.1); Sodium 138 mmol/L (136-145); Triglycerides 128 mg/dL (Less than 150)
[2019-09-24] MEDS: Nitroglycerin 2% Ointment 1 INCH/1 GM Packet TOP SCH ×3 (05:42→21:59)
[2019-09-24] MEDS: TICAGRELOR 90 MG TABLET PO SCH ×2 (08:30→20:24)
[2019-09-24] MEDS: Aspirin 81 mg Enteric Coated Tablet PO SCH (08:30)
[2019-09-24] MEDS: Carvedilol 3.125 MG TAB PO SCH ×2 (08:30→16:25)
[2019-09-24] MEDS: Acetaminophen 500 MG TAB PO PRN ×2 (08:30→15:15)
--- NOTE | 2019-09-24 13:51 | PDOC.CPN ---
- Subjective Date: 09/24/19 Time: 13:49 Interval history: Had nausea and vomiting this morning. No chest pain. - Review of Systems General: denies: fever/chills, weight/appetite/sleep changes, night sweats, fatigue Respiratory: denies: cough, congestion, shortness of breath, exercise intolerance Cardiovascular: denies: chest pain, palpitation, edema, paroxysmal nocturnal dyspnea, orthopnea Gastrointestinal: denies: nausea, vomiting, diarrhea, constipation, abd pain, GI bleeding Musculoskeletal: denies: pain, tenderness, stiffness, swelling, arthritis/ arthralgias Neurological: denies: numbness, syncope, seizure, weakness - Objective Allergies/Adverse Reactions: Allergies Allergy/AdvReac Type Severity Reaction Status Date / Time lorazepam [From Ativan] Allergy Unknown Verified 09/23/19 15:22 niacin Allergy Unknown Verified 09/23/19 15:22 Visit Medications: Current Medications Acetaminophen (Tylenol) 1,000 mg PO Q6H PRN PRN Reason: Mild Pain (1-3) Last Admin: 09/24/19 08:30 Dose: 1,000 mg Albuterol/Ipratropium (Duoneb) 3 ml NEB Q4H PRN PRN Reason: SOB &/or Wheezing Aspirin (Ecotrin) 81 mg PO DAILY [facility] Last Admin: 09/24/19 08:30 Dose: 81 mg Carvedilol (Coreg) 3.125 mg PO BID-[facility] Last Admin: 09/24/19 08:30 Dose: 3.125 mg Famotidine (Pepcid) 20 mg PO QPM [facility] Last Admin: 09/23/19 21:06 Dose: 20 mg Hydralazine HCl (Apresoline) 10 mg SLOW IVP Q4H PRN PRN Reason: SBP > 180 and HR < 70 Labetalol HCl (Normodyne) 20 mg SLOW IVP Q4H PRN PRN Reason: SBP > 180 and HR >/= 70 Nitroglycerin (Nitro-Bid 2% Ointment) 0.5 inch TOP Q8HR [facility] Last Admin: 09/24/19 05:42 Dose: 0.5 inch Ondansetron HCl (Zofran Odt) 4 mg PO Q6H PRN PRN Reason: Nausea/Vomiting Ondansetron HCl (Zofran) 4 mg IVP Q6H PRN PRN Reason: Nausea/Vomiting Sodium Chloride ([place] Nasal [place] 0.65%) 0 ml EA NARE TID PRN PRN Reason: Nasal Congestion Last Admin: 09/24/19 03:14 Dose: 2 spr Ticagrelor (Brilinta) 90 mg PO BID [facility] Last Admin: 09/24/19 08:30 Dose: 90 mg Vital Signs & Weight: Vital Signs Temp Pulse Resp BP Pulse Ox 09/24/19 11:34 98.4 F 87 15 120/71 93 L 09/24/19 07:53 98 F 89 14 121/68 95 09/24/19 03:07 95 20 09/24/19 03:00 98.0 F 96 20 131/61 97 Weight 247 lb 1.6 oz - Physical Exam General: alert & oriented x3 HEENT: mucus membranes moist Neck: supple neck Cardiac: regular rate and rhythm Lungs: clear to auscultation Neuro: grossly intact Abdomen: active bowel sounds Extremities: no edema Skin: clear Musculoskeletal: no pain - Labs Result Diagrams: 09/24/19 04:58 09/24/19 04:58 Troponin/CKMB CK-MB (CK-2) 2.3 ng/mL (0-6.6) 09/23/19 08:48 Troponin I Less than 0.010 ng/mL (< 0.028) 09/23/19 15:47 - Telemetry Sinus rhythms and dysrhythmias: sinus rhythm - Assessment/Plan Assessment/Plan: 1. Unstable angina. 2. CAD 3. ESRD 4. Non compliance 5. Ongoing tobacco use PLAN: - For [facility] Thursday. Right groin access. BMS if needed.
--- NOTE | 2019-09-24 14:16 | PRG ---
DATE OF SERVICE: 09/24/2019 SUBJECTIVE: Patient was seen and examined at bedside and overnight events noted. Patient denies any shortness of breath or chest pain or palpitation. No history of nausea or vomiting or diarrhea or fever or chills or cramps. OBJECTIVE: GENERAL: This is a well-built male, in no apparent distress. VITAL SIGNS: Temperature 98.4. Heart rate 87. Respiratory rate 18. Blood pressure 120/71. HEENT: Atraumatic, normocephalic. Oral mucosa is moist. NECK: Supple. CARDIOVASCULAR: S1, S2 heard. Rate and rhythm regular. RESPIRATORY: Clear to auscultation. GASTROINTESTINAL: Abdomen is soft. MUSCULOSKELETAL: No tenderness. No edema. DERMATOLOGIC: No skin rash. NEUROLOGIC: Alert and awake and oriented x3. No focal neurologic deficits. Moving all the extremities. PSYCHIATRIC: Mood and affect normal. LABORATORY DATA: Potassium 3.9, BUN is 41, and creatinine is 9.5. ASSESSMENT/PLAN: 1. End-stage renal disease. Continue dialysis as tolerated. 2. Edema, controlled. 3. Hyperkalemia, better. 4. Anemia. 5. Hypertension, stable. Continue dialysis as tolerated. Job ID: [id number]
--- NOTE | 2019-09-24 15:33 | PDOC.HOSPP ---
- Subjective Encounter Date: 09/24/19 Encounter Time: 07:20 Subjective: Pt seen for followup re: chest pain. Reports feeling better. No fevers or chills. - Objective Vital Signs & Weight: Vital Signs (12 hours) Temp Pulse Resp BP Pulse Ox 09/24/19 11:34 98.4 F 87 15 120/71 93 L 09/24/19 07:53 98 F 89 14 121/68 95 Weight Weight 247 lb 1.6 oz I&O: 09/23/19 09/24/19 09/25/19 06:59 06:59 06:59 Intake Total 1070 Output Total 850 Balance 220 Result Diagrams: 09/24/19 04:58 09/24/19 04:58 Additional Labs: Labs and MARs reviewed by me EKG Reviewed by me: Yes (Tele: NSR) Hospitalist ROS - Review of Systems Cardiovascular: reports: chest pain. denies: palpitations, orthopnea, paroxysmal noc. dyspnea, edema, light headedness Gastrointestinal: denies: nausea, vomiting, abdominal pain, diarrhea, constipation, melena, hematochezia - Medication Medications: Active Medications Generic Name Dose Route Start Last Admin Trade Name Freq PRN Reason Stop Dose Admin Acetaminophen 1,000 mg 09/23/19 15:55 09/24/19 15:15 Tylenol PO 1,000 mg Q6H PRN Administration Mild Pain (1-3) Aspirin 81 mg 09/24/19 09:00 09/24/19 08:30 Ecotrin PO 81 mg DAILY [facility] Administration Carvedilol 3.125 mg 09/23/19 17:00 09/24/19 08:30 Coreg PO 3.125 mg BID-[facility] Administration Famotidine 20 mg 09/23/19 21:00 09/23/19 21:06 Pepcid PO 20 mg QPM [facility] Administration Nitroglycerin 0.5 inch 09/23/19 22:00 09/24/19 15:11 Nitro-Bid 2% Ointment TOP 0.5 inch Q8HR [facility] Administration Sodium Chloride 0 ml 09/24/19 02:53 09/24/19 03:14 [place] Nasal [place] 0.65% EA NARE 2 spr TID PRN Administration Nasal Congestion Ticagrelor 90 mg 09/23/19 21:00 09/24/19 08:30 Brilinta PO 90 mg BID [facility] Administration - Exam General - other findings: Obese Eye: anicteric sclera ENT: moist mucosa Neck: supple Heart: RRR Respiratory: CTAB, no rales Gastrointestinal: soft, non-tender Extremities: no edema Musculoskeletal: no muscle wasting Psychiatric: normal affect, normal behavior Hosp A/P (1) Chest pain Code(s): R07.9 - CHEST PAIN, UNSPECIFIED Status: Acute (2) Dyslipidemia Code(s): E78.5 - HYPERLIPIDEMIA, UNSPECIFIED Status: Chronic (3) ESRD (end stage renal disease) on dialysis Code(s): N18.6 - END STAGE RENAL DISEASE; Z99.2 - DEPENDENCE ON RENAL DIALYSIS Status: Chronic (4) HTN (hypertension) Code(s): I10 - ESSENTIAL (PRIMARY) HYPERTENSION Status: Chronic (5) PVD (peripheral vascular disease) Code(s): I73.9 - PERIPHERAL VASCULAR DISEASE, UNSPECIFIED Status: Chronic (6) Tobacco abuse Code(s): Z72.0 - TOBACCO USE Status: Chronic - Plan For cath on Thursday. Dialysis per nephrology service. Pt counseled re: tobacco cessation. Continue Brilinta.
[2019-09-24] MEDS: Famotidine 20 MG TAB PO SCH (20:24)
[2019-09-25] MEDS: Nitroglycerin 2% Ointment 1 INCH/1 GM Packet TOP SCH ×3 (05:39→22:55)
[2019-09-25] MEDS: TICAGRELOR 90 MG TABLET PO SCH ×2 (09:18→20:11)
[2019-09-25] MEDS: Aspirin 81 mg Enteric Coated Tablet PO SCH (09:18)
[2019-09-25] MEDS: Carvedilol 3.125 MG TAB PO SCH ×2 (09:18→17:16)
--- NOTE | 2019-09-25 11:23 | PDOC.CPN ---
- Subjective Date: 09/25/19 Time: 11:22 Interval history: NO angina, - Review of Systems General: denies: fever/chills, weight/appetite/sleep changes, night sweats, fatigue Respiratory: denies: cough, congestion, shortness of breath, exercise intolerance Cardiovascular: denies: chest pain, palpitation, edema, paroxysmal nocturnal dyspnea, orthopnea Gastrointestinal: denies: nausea, vomiting, diarrhea, constipation, abd pain, GI bleeding Musculoskeletal: denies: pain, tenderness, stiffness, swelling, arthritis/ arthralgias Neurological: denies: numbness, syncope, seizure, weakness - Objective Allergies/Adverse Reactions: Allergies Allergy/AdvReac Type Severity Reaction Status Date / Time lorazepam [From Ativan] Allergy Unknown Verified 09/23/19 15:22 niacin Allergy Unknown Verified 09/23/19 15:22 Visit Medications: Current Medications Acetaminophen (Tylenol) 1,000 mg PO Q6H PRN PRN Reason: Mild Pain (1-3) Last Admin: 09/24/19 15:15 Dose: 1,000 mg Albuterol/Ipratropium (Duoneb) 3 ml NEB Q4H PRN PRN Reason: SOB &/or Wheezing Aspirin (Ecotrin) 81 mg PO DAILY [facility] Last Admin: 09/25/19 09:18 Dose: 81 mg Carvedilol (Coreg) 3.125 mg PO BID-[facility] Last Admin: 09/25/19 09:18 Dose: 3.125 mg Famotidine (Pepcid) 20 mg PO QPM [facility] Last Admin: 09/24/19 20:24 Dose: 20 mg Hydralazine HCl (Apresoline) 10 mg SLOW IVP Q4H PRN PRN Reason: SBP > 180 and HR < 70 Labetalol HCl (Normodyne) 20 mg SLOW IVP Q4H PRN PRN Reason: SBP > 180 and HR >/= 70 Nitroglycerin (Nitro-Bid 2% Ointment) 0.5 inch TOP Q8HR [facility] Last Admin: 09/25/19 05:39 Dose: 0.5 inch Ondansetron HCl (Zofran Odt) 4 mg PO Q6H PRN PRN Reason: Nausea/Vomiting Ondansetron HCl (Zofran) 4 mg IVP Q6H PRN PRN Reason: Nausea/Vomiting Sodium Chloride ([place] Nasal [place] 0.65%) 0 ml EA NARE TID PRN PRN Reason: Nasal Congestion Last Admin: 09/24/19 03:14 Dose: 2 spr Ticagrelor (Brilinta) 90 mg PO BID [facility] Last Admin: 09/25/19 09:18 Dose: 90 mg Vital Signs & Weight: Vital Signs Temp Pulse Resp BP BP Pulse Ox 09/25/19 07:55 98.4 F 90 20 161/82 H 95 09/25/19 04:20 98.1 F 86 16 131/73 95 09/25/19 03:38 98.1 F 86 16 131/73 95 09/25/19 03:23 94 L 09/25/19 00:30 82 18 144/75 H 98 Weight 247 lb 1.6 oz - Physical Exam General: alert & oriented x3 HEENT: normocephaly Neck: supple neck Cardiac: regular rate and rhythm Lungs: clear to auscultation Neuro: grossly intact Abdomen: active bowel sounds Extremities: no edema Skin: clear Musculoskeletal: no pain - Labs Result Diagrams: 09/24/19 04:58 09/24/19 04:58 Troponin/CKMB CK-MB (CK-2) 2.3 ng/mL (0-6.6) 09/23/19 08:48 Troponin I Less than 0.010 ng/mL (< 0.028) 09/23/19 15:47 - Telemetry Sinus rhythms and dysrhythmias: sinus rhythm - Assessment/Plan Assessment/Plan: 1. Unstable angina. 2. CAD 3. ESRD 4. Non compliance 5. Ongoing tobacco use 6. Normal LV function. PLAN: - For [facility] tomorrow. Right groin access. BMS if needed.
--- NOTE | 2019-09-25 11:44 | PDOC.HOSPP ---
- Subjective Encounter Date: 09/25/19 Encounter Time: 07:40 Subjective: Pt seen for followup re: chest pain. Feels better. nausea earlier, not now. - Objective Vital Signs & Weight: Vital Signs (12 hours) Temp Pulse Resp BP BP Pulse Ox 09/25/19 11:09 98.4 F 85 18 135/77 95 09/25/19 07:55 98.4 F 90 20 161/82 H 95 09/25/19 04:20 98.1 F 86 16 131/73 95 09/25/19 03:38 98.1 F 86 16 131/73 95 09/25/19 03:23 94 L 09/25/19 00:30 82 18 144/75 H 98 Weight Weight 247 lb 1.6 oz I&O: 09/24/19 09/25/19 09/26/19 06:59 06:59 06:59 Intake Total 1070 3260 Output Total 850 3350 Balance 220 -90 Result Diagrams: 09/24/19 04:58 09/24/19 04:58 Additional Labs: Labs and MARs reviewed by me EKG Reviewed by me: Yes (Tele: NSR) Hospitalist ROS - Review of Systems Cardiovascular: denies: chest pain, palpitations, orthopnea, paroxysmal noc. dyspnea, edema, light headedness Gastrointestinal: reports: nausea. denies: vomiting, abdominal pain, diarrhea, constipation, melena, hematochezia - Medication Medications: Active Medications Generic Name Dose Route Start Last Admin Trade Name Freq PRN Reason Stop Dose Admin Acetaminophen 1,000 mg 09/23/19 15:55 09/24/19 15:15 Tylenol PO 1,000 mg Q6H PRN Administration Mild Pain (1-3) Aspirin 81 mg 09/24/19 09:00 09/25/19 09:18 Ecotrin PO 81 mg DAILY MARILOU Administration Carvedilol 3.125 mg 09/23/19 17:00 09/25/19 09:18 Coreg PO 3.125 mg BID-WM MARILOU Administration Famotidine 20 mg 09/23/19 21:00 09/24/19 20:24 Pepcid PO 20 mg QPM MARILOU Administration Nitroglycerin 0.5 inch 09/23/19 22:00 09/25/19 05:39 Nitro-Bid 2% Ointment TOP 0.5 inch Q8HR MARILOU Administration Sodium Chloride 0 ml 09/24/19 02:53 09/24/19 03:14 [place] Nasal [place] 0.65% EA NARE 2 spr TID PRN Administration Nasal Congestion Ticagrelor 90 mg 09/23/19 21:00 09/25/19 09:18 Brilinta PO 90 mg BID MARILOU Administration - Exam General - other findings: Obesity Eye: anicteric sclera ENT: normocephalic atraumatic, moist mucosa Neck: supple Heart: RRR, no rubs Respiratory: CTAB Gastrointestinal: soft, non-tender Extremities: no clubbing Psychiatric: normal affect, normal behavior, A&O x 3 Hosp A/P (1) Chest pain Code(s): R07.9 - CHEST PAIN, UNSPECIFIED Status: Acute (2) Dyslipidemia Code(s): E78.5 - HYPERLIPIDEMIA, UNSPECIFIED Status: Chronic (3) ESRD (end stage renal disease) on dialysis Code(s): N18.6 - END STAGE RENAL DISEASE; Z99.2 - DEPENDENCE ON RENAL DIALYSIS Status: Chronic (4) HTN (hypertension) Code(s): I10 - ESSENTIAL (PRIMARY) HYPERTENSION Status: Chronic (5) PVD (peripheral vascular disease) Code(s): I73.9 - PERIPHERAL VASCULAR DISEASE, UNSPECIFIED Status: Chronic (6) Tobacco abuse Code(s): Z72.0 - TOBACCO USE Status: Chronic - Plan cath tomorrow Nephrology following for maintenance dialysis Continue Brilinta.
--- NOTE | 2019-09-25 12:18 | PRG ---
DATE OF SERVICE: 09/25/2019 SUBJECTIVE: Patient was seen and examined at bedside and overnight events noted. Patient denies any shortness of breath or chest pain or palpitation. No history of nausea or vomiting or diarrhea or fever or chills or cramps. OBJECTIVE: GENERAL: This is a well-built male, in no apparent distress. VITAL SIGNS: Temperature 99.4. Heart rate 85. Respiratory rate 18. Blood pressure 135/77. HEENT: Atraumatic, normocephalic. Oral mucosa is moist. NECK: Supple. CARDIOVASCULAR: S1, S2 heard. Rate and rhythm regular. RESPIRATORY: Clear to auscultation. GASTROINTESTINAL: Abdomen is soft. MUSCULOSKELETAL: No tenderness. No edema. DERMATOLOGIC: No skin rash. NEUROLOGIC: Alert and awake and oriented x3. No focal neurologic deficits. Moving all the extremities. PSYCHIATRIC: Mood and affect normal. LABORATORY DATA: Potassium is 3.9, BUN is 41, and creatinine is 9.5. ASSESSMENT AND PLAN: 1. End-stage renal disease. Continue dialysis as tolerated. 2. Edema, controlled. 3. Hyperkalemia. 4. Anemia. 5. Hypertension, stable. Plan to continue on dialysis as tolerated. Job ID: [id number]
[2019-09-25] MEDS ORDERED: Communication Order-Pharmacy FS SCH (16:45)
[2019-09-25] MEDS: Famotidine 20 MG TAB PO SCH (20:11)
[2019-09-25 23:36] LABS: #Basophils 0.1 thou/uL (0.0-0.2); #Eosinphils 0.5 thou/uL (0.0-0.7); #Lymphocytes 1.6 thou/uL (1.20-3.40); #Monocytes 0.5 thou/uL (0.11-0.59); #Neutrophils 4.2 thou/uL (1.40-6.50); %Basophils 0.9 % (0.0-1.0); %Eosinophils 6.8 % (0.0-10.0); %Lymphocytes 23.8 % (21.0-51.0); %Monocytes 7.8 % (0.0-10.0); %Neutrophils 60.7 % (42.0-75.0); Hemoglobin 10.2 g/dL (14.0-18.0); Mean Corpuscular HGB CONC 32.8 g/dL (32.0-36.0); Mean Corpuscular Hemoglobin 30.9 pg (27.0-31.0); Mean Corpuscular Volume 94.2 fL (78.0-98.0); Mean Platelet Volume 8.4 fL (7.4-10.4); Platelet Count 138 thou/uL (130-400); RBC Distribution Width 12.3 % (11.5-14.5); Red Blood Cell (RBC) Count 3.28 mill/uL (4.70-6.10); White Blood Cell (WBC) Count 6.9 thou/uL (4.8-10.8)
[2019-09-26 00:01] LABS: Anion Gap 18 mmol/L (10-20); BUN (Urea Nitrogen) 53 mg/dL (8.4-25.7); Calc. Creatinine Clearance 11 mL/min (70-130); Carbon Dioxide 19 mmol/L (22-29); Chloride 105 mmol/L (98-107); Estimated GFR-MDRD 5; Glucose 95 mg/dL (70-105); Potassium 4.7 mmol/L (3.5-5.1); Sodium 137 mmol/L (136-145)
[2019-09-26] MEDS: Carvedilol 3.125 MG TAB PO SCH (05:23)
[2019-09-26] MEDS: Aspirin 81 mg Enteric Coated Tablet PO SCH (05:23)
[2019-09-26] MEDS: Nitroglycerin 2% Ointment 1 INCH/1 GM Packet TOP SCH ×2 (05:24→13:23)
[2019-09-26] MEDS: TICAGRELOR 90 MG TABLET PO SCH (05:24)
[2019-09-26] MEDS ORDERED: Sodium Chloride 0.9% 1,000 ML IV SCH (06:00)
[2019-09-26] MEDS ORDERED: Heparin (Artline) 1,000 ML ONE (07:41)
[2019-09-26] MEDS ORDERED: Midazolam HCl 2 mg/2 ml Vial ONE (08:12)
[2019-09-26] MEDS ORDERED: Fentanyl 100 MCG/2 ML VIAL ONE (08:13)
[2019-09-26] MEDS ORDERED: Acetaminophen/Codeine 30-300mg Tablet PO PRN (09:02)
[2019-09-26] MEDS ORDERED: Nitroglycerin 0.4 MG TAB (25 Tab Bottle) SL PRN (09:02)
[2019-09-26] MEDS ORDERED: Sodium Chloride 0.9% 200 ML IV PRN (09:02)
[2019-09-26] MEDS ORDERED: Heparin 10,000 UNITS/ 10 ML VIAL ONE (09:27)
[2019-09-26 09:38] VITALS: TEMP 97.6
--- NOTE | 2019-09-26 11:03 | PRG ---
DATE OF SERVICE: 09/26/2019 SUBJECTIVE: A 58-year-old gentleman, being seen for end-stage renal disease. The patient denied nausea, vomiting, or chest pain. OBJECTIVE: CONSTITUTIONAL: On examination, the patient is awake and alert. VITAL SIGNS: Afebrile. Pulse 75, breathing 16, blood pressure 129/75. GENERAL APPEARANCE AND MENTAL STATUS: Fair. HEAD/NECK: Normocephalic. Atraumatic. EYES: EOMI. No deformity. EARS: Clear. No ulcers. NOSE: Intact. No lesions. MOUTH: Clear. No discharge. THROAT: Clear. No exudate. LUNGS: Clear. No crackles. CARDIAC: S1, S2. No rub. ABDOMEN: Benign. Bowel sounds positive. GENITALIA/RECTUM: Sosa absent. BACK/EXTREMITIES: Edema 0+. NEUROLOGICAL: Alert and motor intact. SKIN: LYMPHATICS: LABORATORY DATA: Labs show hemoglobin 10.2. ASSESSMENT AND PLAN: 1. Stage 6 chronic kidney disease. Plan dialysis. 2. Uremia. Plan dialysis. 3. Hypertension, stable. 4. Anemia, stable. 5. Hyperkalemia, stable. Job ID: [id number]
[2019-09-26 12:03] VITALS: BP 147/66
--- NOTE | 2019-09-26 14:58 | DIS ---
DATE OF ADMISSION: 09/23/2019 DATE OF DISCHARGE: 09/26/2019 PRIMARY CARE PROVIDER: [facility] in [place]. DISCHARGE DIAGNOSES: 1. Chest pain. 2. Chest pain most likely secondary to musculoskeletal etiology. CONDITION OF THE PATIENT ON THE DAY OF DISCHARGE: Stable. I assessed Mr. Lobato on the day of discharge. He denies any chest pain or shortness of breath. Vital signs are stable. S1 and S2 are heard, regular. Lungs are clear to auscultation bilaterally. CONSULTATIONS DURING THIS HOSPITALIZATION: 1. Cardiology, Dr. Henry. 2. Nephrology, Dr. Keita. DISCHARGE MEDICATIONS: 1. Brilinta 90 mg two times a day. 2. Aspirin 81 mg daily. 3. Coreg 3.125 mg two times a day. 4. Imdur 30 mg daily. HOSPITAL COURSE: Mr. Lobato is a pleasant 58-year-old gentleman, who was admitted to [facility] on September 23, 2019 for chest pain, suspected to be secondary to unstable angina. He was seen by Cardiology Service. He was also seen by Nephrology Service for maintenance hemodialysis. A 2D echocardiogram showed left ventricular ejection fraction of 55% to 60%, grade 1/3 diastolic dysfunction, moderately dilated left atrium, mild mitral regurgitation, aortic valve sclerosis, and mild tricuspid regurgitation. He underwent cardiac catheterization on September 26, 2019. The cardiac catheterization report is pending, but preliminary report indicates that this was a normal study. Following the cardiac cath, he is undergoing hemodialysis, for which he will be discharged to home. Many thanks for allowing me to participate in your patient's care. Please feel free to contact me with any questions or concerns. ACTIVITY: Ad ren. DIET: Heart healthy. DISCHARGE DESTINATION: Home. TIME SPENT: Total amount of time spent coordinating this discharge: 18 minutes. Job ID: [id number] MTDD
[2019-09-27] MEDS ORDERED: Isosorbide Mononitrate (ER) 30 MG TAB PO SCH (09:00)
== END 2019-09-26 17:28 | disposition home or self-care (01) | DRG 286 ==
LOC: ERS 08:23 → OBSVTOIN 15:05 → 2SW 15:05
PROVIDERS: ADMIT Family Medicine; ATTEND Family Medicine
PROC: 5A1D70Z Performance of Urinary Filtration, Intermittent, Less than 6 Hours Per Day (ICD-10-PCS; 2019-09-23)
PROC: 4A023N7 Measurement of Cardiac Sampling and Pressure, Left Heart, Percutaneous Approach (ICD-10-PCS; principal; 2019-09-26)
PROC: B2111ZZ Fluoroscopy of Multiple Coronary Arteries using Low Osmolar Contrast (ICD-10-PCS; 2019-09-26)
PROC: B2151ZZ Fluoroscopy of Left Heart using Low Osmolar Contrast (ICD-10-PCS; 2019-09-26)
DX: I25.110 Atherosclerotic heart disease of native coronary artery with unstable angina pectoris (principal); N18.6 End stage renal disease; Q61.3 Polycystic kidney, unspecified; E87.2 Acidosis; E78.5 Hyperlipidemia, unspecified; I10 Essential (primary) hypertension; F17.210 Nicotine dependence, cigarettes, uncomplicated; D63.1 Anemia in chronic kidney disease; E87.5 Hyperkalemia; I73.9 Peripheral vascular disease, unspecified; Z95.5 Presence of coronary angioplasty implant and graft; Z99.2 Dependence on renal dialysis; Z79.899 Other long term (current) drug therapy; Z95.828 Presence of other vascular implants and grafts; Z88.8 Allergy status to other drugs, medicaments and biological substances; Z91.14 Patient's other noncompliance with medication regimen
CPT/HCPCS: 36415; 71045; 80048; 80053; 80061; 82553; 83735; 84484; 85007; 85025; 85027; 87340; 90935; 93005; 93306; 93458; 94640; 94760; 99152; C1769; G0257; J1644; J2250; J3010; J7620; Q0162

== ENCOUNTER 2020-06-18 14:57 | Observation (INO) | payer MEDICARE, OTHER ==
[2020-06-18 15:25] LABS: #Basophils 0.1 thou/uL (0.0-0.2); #Eosinphils 0.3 thou/uL (0.0-0.7); #Lymphocytes 1.2 thou/uL (1.20-3.40); #Monocytes 0.4 thou/uL (0.11-0.59); #Neutrophils 4.6 thou/uL (1.40-6.50); %Basophils 1.3 % (0.0-1.0); %Eosinophils 4.4 % (0.0-10.0); %Lymphocytes 17.8 % (21.0-51.0); %Monocytes 5.9 % (0.0-10.0); %Neutrophils 70.6 % (42.0-75.0); Hemoglobin 10.1 g/dL (14.0-18.0); Mean Corpuscular HGB CONC 32.7 g/dL (32.0-36.0); Mean Corpuscular Volume 94.8 fL (78.0-98.0); Mean Platelet Volume 9.6 fL (7.4-10.4); Platelet Count 134 thou/uL (130-400); RBC Distribution Width 12.9 % (11.5-14.5); Red Blood Cell (RBC) Count 3.27 mill/uL (4.70-6.10); White Blood Cell (WBC) Count 6.6 thou/uL (4.8-10.8)
--- NOTE | 2020-06-18 15:33 | RAD ---
XR Chest 1 View Portable HISTORY: Shortness of breath, patient on dialysis COMPARISON: 09/23/2019 FINDINGS: The heart size is borderline. There are mild atelectatic changes at the lung bases. No loba r consolidation, pneumothoraces, emile pulmonary edema or large effusions are seen.
[2020-06-18 15:48] LABS: ALT (SGPT) Less than 7 U/L (8-55); AST (SGOT) 10 U/L (5-34); Albumin 3.9 g/dL (3.4-4.8); Alkaline Phosphatase 35 U/L (40-110); Anion Gap 22 mmol/L (10-20); BUN (Urea Nitrogen) 59 mg/dL (8.4-25.7); Bilirubin, Total 0.4 mg/dL (0.2-1.2); Calc. Creatinine Clearance 0 mL/min (70-130); Calcium 9.3 mg/dL (7.8-10.44); Carbon Dioxide 18 mmol/L (23-31); Chloride 105 mmol/L (98-107); Estimated GFR-MDRD 4; Globulin 3.1 g/dL (2.4-3.5); Glucose 80 mg/dL (80-115); Potassium 5.5 mmol/L (3.5-5.1); Sodium 139 mmol/L (136-145)
--- NOTE | 2020-06-18 16:00 | CT ---
CT ABDOMEN AND PELVIS PERFORMED WITH CONTRAST ENHANCEMENT: Date: 06/18/2020 HISTORY: Shortness of breath. Abdominal pain. History of dialysis. Patient is a smoker. FINDINGS: There are moderate bilateral pleural effusions with bibasilar atelectatic lung change. Chronic appear ing lung changes are also present. Innumerable cystic lesions are seen within the liver. The spleen, pancreas, and gallbladder regions a re unremarkable. Polycystic kidney disease is noted. Multiple small nonobstructing calculi. Ureters are normal in appe arance. There are small periaortic and mesenteric nodes seen. CT of pelvis was performed without contrast enhancement. Postoperative changes in the left groin hira on are seen. Minimal diverticulosis. No adenopathy or mass. IMPRESSION: 1. Polycystic kidney and liver disease. 2. Moderate bilateral pleural effusions. 3. Bilateral nonobstructing renal calculi. POS: MARI
[2020-06-18 16:11] LABS: CKMB 3.5 ng/mL (0-6.6)
[2020-06-18] MEDS ORDERED: Ondansetron PF 4 MG/2 ML Vial ONE (16:26)
[2020-06-18] MEDS ORDERED: Bisacodyl 5 MG TAB PO PRN (18:16)
[2020-06-18] MEDS ORDERED: Acetaminophen 325 MG TAB PO PRN (18:16)
--- NOTE | 2020-06-18 19:26 | HP ---
PRIMARY CARE PROVIDER: [facility] in [place]. CHIEF COMPLAINT: Shortness of breath. HISTORY OF PRESENT ILLNESS: The patient is a pleasant 59-year-old gentleman, who was seen in the emergency room on June 18, 2020. He is a hemodialysis patient. He is apparently supposed to go for hemodialysis 3 times a week, but he only goes for dialysis once a week. He reports that his last dialysis was about 5 days ago. He reports that over the last couple of weeks, he has been having progressively worsening shortness of breath. He reports that the sensation of fluid pushing on his diaphragm preventing him from taking a deep breath. He denies any chest pain. He denies any cough, fevers, or chills. He denies any nausea or vomiting. He presented to the emergency room because of shortness of breath. The patient reportedly mentioned to emergency room physician that he was also having some abdominal pain, but he denied having any abdominal pain when I asked him about it. REVIEW OF SYSTEMS: All systems were reviewed and found to be negative except for pertinent positives mentioned above. PAST MEDICAL HISTORY: Coronary artery disease status post PCI with stent, end-stage renal disease on hemodialysis, peripheral vascular disease, nonsustained ventricular tachycardia, hypertension, and dyslipidemia. PAST SURGICAL HISTORY: Left femoral-popliteal bypass, left ankle open reduction and internal fixation, AV fistula surgery, cardiac catheterization with stenting, and right subclavian hemodialysis catheter placement. SOCIAL HISTORY: The patient smokes half a pack of cigarettes a day. He reports drinking alcohol 2 times a week. He denies any recreational drug use. FAMILY HISTORY: He reports several family members with heart disease. ALLERGIES: LORAZEPAM, NIACIN, AND IODINATED CONTRAST MEDIA. CURRENT MEDICATIONS: 1. Brilinta 90 mg 2 times a day. 2. Sodium bicarbonate 650 mg daily. 3. Symbicort inhalation. PHYSICAL EXAMINATION: GENERAL: Mr. Lobato is awake and alert, not in acute distress. VITAL SIGNS: Blood pressure is 134/84, pulse 107, respiratory rate 22, and oxygen saturation 94% on room air. EYES: No scleral icterus, no conjunctival pallor. ENT: Moist mucosal membranes. No oropharyngeal erythema or exudate. NECK: Supple, nontender, and trachea is midline. RESPIRATORY: Accessory muscles of breathing are active. Chest wall movements are symmetric bilaterally. LUNG: Reveals bibasilar crackles. CARDIOVASCULAR: S1 and S2 are heard, regular and tachycardic. Peripheral pulses palpable. ABDOMEN: Soft, nontender, bowel sounds are heard. NEUROLOGIC: Cranial nerves 2 through 12 are intact. MUSCULOSKELETAL: Power is 5/5 in all 4 extremities. SKIN: No rashes, the patient has trace lower extremity edema. LYMPHATIC: No cervical lymphadenopathy. PSYCHIATRIC: Normal mood, normal affect, the patient is oriented to person, place, and time. LABORATORY DATA: Mr. Lobato labs and investigations were reviewed. I reviewed his electrocardiogram, which shows sinus tachycardia, no ST changes to suggest an acute coronary syndrome. I also reviewed his chest x-ray, which does not show pulmonary edema. He has normal white count, normocytic anemia with hemoglobin 10.1, normal platelet count, normal sodium, elevated potassium of 5.5, decreased carbon dioxide of 18, elevated blood urea nitrogen of 59, elevated creatinine of 13.83, normal total bilirubin, normal AST, low alkaline phosphatase of 35, indeterminate troponin-I of 0.086 and elevated BNP of 4052. ASSESSMENT AND PLAN: Mr. Lobato is a pleasant 59-year-old gentleman who was seen at [facility] on June 18, 2020. His problem list includes: 1. Volume overload: Mr. Lobato is presenting with volume overload in the context of hemodialysis treatments. His case has been discussed with lab engineer by emergency room physician. The patient will be admitted to the hospital for emergent dialysis. Further management depending on how the patient responds to emergent dialysis. 2. Metabolic acidosis: Secondary to uremia: The patient to have dialysis, labs will be rechecked. 3. Coronary artery disease: Appears to be stable. The patient's troponin I is in the indeterminate range, most likely secondary to end-stage renal disease. The patient denies having any chest pain. 4. Tobacco use: The patient has been counseled regarding tobacco cessation. I will start him on nicotine replacement therapy. 5. Hyperkalemia: Mild, no EKG changes. Potassium level to be checked following dialysis. 6. Deep venous thrombosis prophylaxis with SCDs. 7. History of polycystic kidney disease: The patient had CT scan of abdomen and pelvis in the emergency room, which showed polycystic kidney and liver disease, moderate bilateral pleural effusions and bilateral nonobstructing renal calculi. Polycystic kidney disease appears to be stable. Many thanks for allowing me to participate in your patient's care. Please feel free to contact me with any questions or concerns. LEVEL OF RISK: High. LEVEL OF COMPLEXITY: High. ESTIMATED LENGTH OF STAY IN THE HOSPITAL: Less than 2 midnights. Job ID: [id number]
[2020-06-18] MEDS ORDERED: Nicotine 14 MG PATCH TD SCH (20:00)
[2020-06-18 22:09] LABS: Hep B Surf Ag Non-Reactive S/CO (NonReactive)
--- NOTE | 2020-06-19 00:54 | CON ---
DATE OF CONSULTATION: REASON FOR CONSULTATION: Hyperkalemia. HISTORY OF PRESENT ILLNESS: This is a 59-year-old gentleman who was dialyzing once a week, presented to the hospital with increasing dyspnea as well as shortness of breath. The patient had a BNP of 4052 as well as a potassium of 5.5, so I was consulted. PAST MEDICAL HISTORY: Significant for end-stage disease, hypertension, anemia, history of coronary artery disease, history of peripheral vascular disease, history of polysubstance abuse, left toe gangrene, left ankle surgery, coronary stents, femoral-popliteal bypass, AV fistula, tunneled dialysis catheter. SOCIOECONOMIC HISTORY: No alcohol or drug abuse. FAMILY HISTORY: Negative for ESRD. ALLERGIES: REVIEWED. MEDICATIONS: Home medications, list reviewed. Hospital medications, reviewed. REVIEW OF SYSTEMS: A 15-point review of system was performed negative except for above. HEAD: NECK: No swelling or lumps. NOSE: No epistaxis or discharge. EYES: No diplopia or pain. RESPIRATORY: CARDIOVASCULAR: GASTROINTESTINAL: /LOOM TUNER: MUSCULOSKELETAL: No joint pain. NEUROPSYCHIATIC SYSTEMS: No suicidal ideation. No ideation. SKIN: Denies any rash or ulcer. CONSTITUTIONAL: No fever or chills. PHYSICAL EXAMINATION: GENERAL: Patient is awake and alert. VITAL SIGNS: Pulse 75, breathing 16, blood pressure 135/70. HEENT: Head normocephalic and atraumatic. Eyes intact, no ulcers. Nose intact, no ulcers. Ears intact, no ulcers. Neck: Supple. No JVD. Chest: Symmetrical and clear. Cardiovascular: Shows S1 and S2, no rub, no murmur. Gastrointestinal: Abdomen is soft, bowel sounds positive. Extremities: Show no edema or ulcers. Skin: Shows no rash or petechiae. Musculoskeletal: Shows no joint swelling or stiffness. Genitourinary: Shows no Sosa or CVA tenderness. Neurologic: Motor intact. Cranial nerves intact. LABORATORY DATA: Labs reviewed. ASSESSMENT: 1. Stage 6 chronic kidney disease, plan urgent dialysis. 2. Anemia, stable. 3. Hyperkalemia, plan dialysis. 4. Metabolic acidosis, stable. Plan dialysis. 5. The patient dialysis three times a week. Job ID: [id number]
[2020-06-19 04:08] VITALS: BMI 30.7
[2020-06-19 05:35] LABS: Anion Gap 14 mmol/L (10-20); BUN (Urea Nitrogen) 25 mg/dL (8.4-25.7); Calc. Creatinine Clearance 15 mL/min (70-130); Calcium 8.5 mg/dL (7.8-10.44); Carbon Dioxide 29 mmol/L (23-31); Chloride 100 mmol/L (98-107); Estimated GFR-MDRD 7; Glucose 109 mg/dL (80-115); Potassium 4.5 mmol/L (3.5-5.1); Sodium 138 mmol/L (136-145)
[2020-06-19 05:37] LABS: #Eosinphils 0.3 thou/uL (0.0-0.7); #Lymphocytes 0.9 thou/uL (1.20-3.40); #Monocytes 0.4 thou/uL (0.11-0.59); #Neutrophils 3.2 thou/uL (1.40-6.50); %Basophils 0.2 % (0.0-1.0); %Eosinophils 5.3 % (0.0-10.0); %Lymphocytes 18.7 % (21.0-51.0); %Monocytes 7.5 % (0.0-10.0); %Neutrophils 68.3 % (42.0-75.0); Hemoglobin 9.4 g/dL (14.0-18.0); Mean Corpuscular HGB CONC 32.3 g/dL (32.0-36.0); Mean Corpuscular Hemoglobin 30.6 pg (27.0-31.0); Mean Platelet Volume 8.9 fL (7.4-10.4); Platelet Count 114 thou/uL (130-400); Platelet Morphology Comment Appears Decreased; Red Blood Cell (RBC) Count 3.05 mill/uL (4.70-6.10); White Blood Cell (WBC) Count 4.8 thou/uL (4.8-10.8)
[2020-06-19] MEDS ORDERED: TICAGRELOR 90 MG TABLET PO SCH (09:00)
[2020-06-19] MEDS ORDERED: AFRIN NASAL MIST 15 ML BOT NS PRN (09:32)
[2020-06-19] MEDS ORDERED: guaiFENesin ER 600 MG TAB PO SCH ×2 (11:45→21:00)
[2020-06-19 11:47] VITALS: TEMP 98.8
[2020-06-19 15:06] VITALS: BP 160/70
[2020-06-19 15:15] LABS: SARS-CoV-2 MS2 Positive; SARS-CoV-2 N Gene Negative; SARS-CoV-2 S Gene Negative; SARS-CoV-2 by NAA Not Detected (NotDetected); SARS-CoV-2 orf1ab Negative
--- NOTE | 2020-06-19 19:49 | PRG ---
DATE OF SERVICE: 06/19/2020 SUBJECTIVE: A 59-year-old gentleman being seen for end-stage renal disease. The patient denied nausea, vomiting, or chest pain. OBJECTIVE: General: The patient is awake and alert. Vital Signs: Afebrile, pulse 98, breathing at 16, blood pressure 126/78. HEENT: Head normocephalic and atraumatic. Eyes intact, no ulcers. Nose intact, no ulcers. Ears intact, no ulcers. Neck: Supple. No JVD. Chest: Symmetrical and clear. Cardiovascular: Shows S1 and S2, no rub, no murmur. Gastrointestinal: Abdomen is soft, bowel sounds positive. Extremities: Show no edema or ulcers. Skin: Shows no rash or petechiae. Musculoskeletal: Shows no joint swelling or stiffness. Genitourinary: Shows no Sosa or CVA tenderness. Neurologic: Motor intact. Cranial nerves intact. LABORATORY DATA: Labs reviewed. ASSESSMENT AND PLAN: Stage 3 chronic kidney disease, plan dialysis. Hypertension, stable. Anemia, stable. Medication based on GFR, appropriate. Job ID: [id number]
[2020-06-19] MEDS ORDERED: Sodium Bicarbonate Tab 325 MG TAB PO SCH (21:00)
--- NOTE | 2020-06-20 02:44 | DIS ---
DATE OF ADMISSION: 06/18/2020 DATE OF DISCHARGE: 06/19/2020 PRIMARY CARE PROVIDER: [facility] in [place]. DISCHARGE DIAGNOSES: 1. Volume overload. 2. Metabolic acidosis. 3. Hyperkalemia. CONDITION OF PATIENT ON THE DAY OF DISCHARGE: Stable. I assessed Mr. Lobato on the day of discharge. He denies any chest pain or shortness of breath. Vital signs are stable. S1 and S2 are heard, regular. Lungs are clear to auscultation bilaterally. CONSULTATIONS DURING THIS HOSPITALIZATION: Nephrology, Dr. Fiore. HOSPITAL COURSE: Mr. Lobato is a pleasant 59-year-old gentleman, who was admitted to [facility] on observation status on June 18, 2020, for a volume overload. He was seen by Nephrology Service and underwent urgent hemodialysis. He was on dialysis once a week prior to this hospitalization. His dialysis days are being changed to three times a week. He is being discharged home in a stable condition. Many thanks for allowing me to participate in your patient's care. Please feel free to contact me with any questions or concerns. ACTIVITY: As tolerated. POST ACUTE CARE FOLLOWUP: With primary care provider in 3 days. DIET: Renal. DISCHARGE DESTINATION: Home. Job ID: [id number]
--- NOTE | 2020-06-30 10:54 | EKG ---
Test Reason : Blood Pressure : / mmHG Vent. Rate : 106 BPM Atrial Rate : 106 BPM P-R Int : 220 ms QRS Dur : 090 ms QT Int : 348 ms P-R-T Axes : 057 -14 035 degrees QTc Int : 462 ms Sinus tachycardia with 1st degree A-V block Possible Left atrial enlargement Low voltage QRS Possible Inferior infarct , age undetermined Abnormal ECG Confirmed by NONI ANGULO DO ([id number]), film or videotape editor CARMENZA OLIVER ([id number]) on 06/30/2020 10:54:27 AM Referred By: Confirmed By:NONI ANGULO DO
== END 2020-06-19 16:39 | disposition home or self-care (01) ==
LOC: ERS 14:57 → INTOOBSV 17:58 → ONC 17:58
PROVIDERS: ADMIT Internal Medicine; ATTEND Internal Medicine
DX: E87.70 Fluid overload, unspecified (principal); E87.5 Hyperkalemia; I12.0 Hypertensive chronic kidney disease with stage 5 chronic kidney disease or end stage renal disease; N18.6 End stage renal disease; I25.10 Atherosclerotic heart disease of native coronary artery without angina pectoris; I73.9 Peripheral vascular disease, unspecified; E78.5 Hyperlipidemia, unspecified; F17.210 Nicotine dependence, cigarettes, uncomplicated; Q61.3 Polycystic kidney, unspecified; J90 Pleural effusion, not elsewhere classified; N20.0 Calculus of kidney; Z88.8 Allergy status to other drugs, medicaments and biological substances; Z91.041 Radiographic dye allergy status; Z79.02 Long term (current) use of antithrombotics/antiplatelets; Z79.899 Other long term (current) drug therapy; Z99.2 Dependence on renal dialysis; D64.9 Anemia, unspecified; Z20.828 Contact with and (suspected) exposure to other viral communicable diseases
CPT/HCPCS: 71045; 74176; 80048; 80053; 82553; 83880; 84484; 85025 ×2; 87340; 93005; 96374; 99285; G0378 ×3; U0003; 36415; 87635; 90935; G0257; J2405

== ENCOUNTER 2020-06-29 23:46 | Inpatient (IN) | payer MEDICARE, OTHER ==
--- NOTE | 2020-06-30 00:09 | RAD ---
Chest one view HISTORY: Chest pain. COMPARISON: 06/18/2020. FINDINGS: Cardiac silhouette is magnified and upper limits of normal in size. Shallow inspiration acc entuates pulmonary markings. Mediastinum is midline with aortic calcification. Postoperative changes of the right shoulder evident . Subtle ill-defined patchy areas of parenchymal opacity on the prior study are less pronounced on the current exam. No evidence of pneumothorax or lobar consolidation. IMPRESSION : Subtle patchy bilateral infiltrates have improved since the prior study from 06/18/2020. No new abnorm alities are demonstrated.
[2020-06-30 00:16] LABS: #Basophils 0.1 thou/uL (0.0-0.2); #Eosinphils 0.3 thou/uL (0.0-0.7); #Lymphocytes 0.9 thou/uL (1.20-3.40); #Monocytes 0.4 thou/uL (0.11-0.59); #Neutrophils 3.1 thou/uL (1.40-6.50); %Basophils 1.7 % (0.0-1.0); %Eosinophils 5.9 % (0.0-10.0); %Lymphocytes 19.3 % (21.0-51.0); %Monocytes 8.2 % (0.0-10.0); %Neutrophils 64.9 % (42.0-75.0); Hemoglobin 10.8 g/dL (14.0-18.0); Mean Corpuscular HGB CONC 32.7 g/dL (32.0-36.0); Mean Corpuscular Hemoglobin 31.2 pg (27.0-31.0); Mean Corpuscular Volume 95.5 fL (78.0-98.0); Platelet Count 144 thou/uL (130-400); RBC Distribution Width 13.5 % (11.5-14.5); Red Blood Cell (RBC) Count 3.45 mill/uL (4.70-6.10); White Blood Cell (WBC) Count 4.8 thou/uL (4.8-10.8)
[2020-06-30 00:41] LABS: ALT (SGPT) 7 U/L (8-55); AST (SGOT) 12 U/L (5-34); Albumin 3.7 g/dL (3.4-4.8); Alkaline Phosphatase 40 U/L (40-110); Anion Gap 16 mmol/L (10-20); BUN (Urea Nitrogen) 22 mg/dL (8.4-25.7); Bilirubin, Total 0.5 mg/dL (0.2-1.2); CK (CPK) 58 U/L (30-200); Calc. Creatinine Clearance 0 mL/min (70-130); Calcium 9.6 mg/dL (7.8-10.44); Carbon Dioxide 25 mmol/L (23-31); Chloride 102 mmol/L (98-107); Estimated GFR-MDRD 8; Globulin 3.2 g/dL (2.4-3.5); Glucose 97 mg/dL (80-115); Potassium 4.7 mmol/L (3.5-5.1); Protein, Total 6.9 g/dL (5.8-8.1); Sodium 138 mmol/L (136-145)
[2020-06-30] MEDS ORDERED: Nitroglycerin 0.4 MG TAB 1 EACH ONE (00:46)
[2020-06-30 01:03] LABS: CKMB 1.9 ng/mL (0-6.6)
--- NOTE | 2020-06-30 01:47 | PDOC.HHP ---
Hospitalist HPI - History of Present Illness Chest pain History of Present Illness: 59-year-old gentleman with a history of end-stage renal disease on hemodialysis, coronary artery disease status post multiple stent, hypertension, history of polycystic kidney disease presented emergency department with a complaint of chest pain of sudden onset. Patient reports anterior chest pain of sudden onset, occurred at rest, radiating to involve left arm, no associated diaphoresis or shortness of breath, no aggravating factors, relieved by sublingual nitroglycerin and aspirin given in the emergency department. Patient also reports intermittent cough. He was recently hospitalized and treated for volume overload with hemodialysis. Patient reports compliance with his Brilinta. He does not take aspirin daily but sometimes takes BC powder on NSAIDs. His last hemodialysis was yesterday. His initial troponin was mildly elevated in the ED. EKG demonstrated sinus tachycardia, old Q waves in lead III and V1. No acute ischemic changes. Check x-ray demonstrated patchy bilateral infiltrates which is improved from previous images. Patient is admitted for further management of NSTEMI. Hospitalist ROS - Review of Systems Other: Except as documented, all other systems reviewed and negative. - Medication Medications: Medication Instructions Recorded Confirmed Type Ticagrelor [Brilinta] 90 mg PO BID 04/24/17 06/30/20 History Sodium Bicarbonate 650 mg PO BID 06/19/20 06/30/20 History Hospitalist History - Past Medical History Cardiac: reports: CAD, HTN Pulmonary: reports: high cholesterol Other Medical History: End-stage renal disease on hemodialysis, peripheral vascular disease, nonsustained ventricular tachycardia. - Past Surgical History Other Surgical History: Right AV fistula, left femoropopliteal bypass left ankle open reduction and fixation, cardiac catheterization with stenting. Status post right subclavian hemodialysis catheter placement. - Family History Family History: reports: cardiac disorder - Social History Smoking Status: Current every day smoker Alcohol: reports: None Drugs: reports: none - Exam Eye: PERRL, anicteric sclera ENT: normocephalic atraumatic, no oropharyngeal lesions, moist mucosa Neck: supple, symmetric, no JVD, no thyromegaly Heart: RRR, no murmur, no gallops Respiratory: CTAB, no wheezes, no rales, no ronchi Gastrointestinal: soft, non-tender, non-distended, normal bowel sounds Extremities: no cyanosis, no edema Skin: normal turgor, no rashes Neurological: cranial nerve grossly intact, no weakness, no focal deficits Musculoskeletal: normal tone, no muscle wasting Musculoskeletal - other findings: Right upper arm AV fistula Psychiatric: normal affect, normal behavior, A&O x 3 Hospitalist Results - Labs Result Diagrams: 06/30/20 02:07 06/30/20 02:07 Lab results: WBC 4.8 thou/uL (4.8-10.8) 06/30/20 00:07 Hgb 10.8 g/dL (14.0-18.0) L 06/30/20 00:07 Hct 33.0 % (42.0-52.0) L 06/30/20 00:07 MCV 95.5 fL (78.0-98.0) 06/30/20 00:07 Plt Count 144 thou/uL (130-400) 06/30/20 00:07 Neutrophils % 64.9 % (42.0-75.0) 06/30/20 00:07 Sodium 138 mmol/L (136-145) 06/30/20 00:07 Potassium 4.7 mmol/L (3.5-5.1) 06/30/20 00:07 Chloride 102 mmol/L (98-107) 06/30/20 00:07 Carbon Dioxide 25 mmol/L (23-31) 06/30/20 00:07 BUN 22 mg/dL (8.4-25.7) 06/30/20 00:07 Creatinine 6.90 mg/dL (0.7-1.3) H 06/30/20 00:07 Glucose 97 mg/dL (80-115) 06/30/20 00:07 Calcium 9.6 mg/dL (7.8-10.44) 06/30/20 00:07 Total Bilirubin 0.5 mg/dL (0.2-1.2) 06/30/20 00:07 AST 12 U/L (5-34) 06/30/20 00:07 ALT 7 U/L (8-55) L 06/30/20 00:07 Alkaline Phosphatase 40 U/L (40-110) 06/30/20 00:07 Creatine Kinase 58 U/L (30-200) 06/30/20 00:07 CK-MB (CK-2) 1.9 ng/mL (0-6.6) 06/30/20 00:07 Troponin I 0.196 ng/mL (< 0.028) H 06/30/20 00:07 Serum Total Protein 6.9 g/dL (5.8-8.1) 06/30/20 00:07 Albumin 3.7 g/dL (3.4-4.8) 06/30/20 00:07 Additional comment: Initial troponin: 0.196. - EKG Interpretation EKG: Sinus tachycardia. - Radiology Interpretation Chest x-ray Status: report reviewed by me (Bilateral patchy infiltrates.) Hospitalist H&P A/P - Problem (1) NSTEMI (non-ST elevated myocardial infarction) Code(s): I21.4 - NON-ST ELEVATION (NSTEMI) MYOCARDIAL INFARCTION Status: Acute (2) Chest pain Code(s): R07.9 - CHEST PAIN, UNSPECIFIED Status: Acute (3) CAD (coronary artery disease) Code(s): I25.10 - ATHSCL HEART DISEASE OF [place] CORONARY ARTERY W/O ANG PCTRS Status: Chronic (4) ESRD (end stage renal disease) on dialysis Code(s): N18.6 - END STAGE RENAL DISEASE; Z99.2 - DEPENDENCE ON RENAL DIALYSIS Status: Chronic (5) HTN (hypertension) Code(s): I10 - ESSENTIAL (PRIMARY) HYPERTENSION Status: Chronic - Plan Plan: Place patient under observation. Not sure if troponin elevation is secondary to coronary occlusion or decreased clearance from ESRD. We will treat as NSTEMI given the typical nature of his chest pain. Start heparin drip. Continue Brilinta, add baby aspirin. Metoprolol 25 mg twice daily. Check lipid profile Obtain echocardiogram Cardiology consult Continue to trend troponin Nephrology consult for hemodialysis if his stay is prolonged.
[2020-06-30] MEDS ORDERED: Heparin 10,000 UNITS/ 10 ML VIAL SLOW IVP SCH (02:00)
[2020-06-30] MEDS ORDERED: Heparin 25,000 units/D5W 500 ML IVPB SCH (02:00)
[2020-06-30 02:21] LABS: #Eosinphils 0.2 thou/uL (0.0-0.7); #Lymphocytes 0.7 thou/uL (1.20-3.40); #Monocytes 0.3 thou/uL (0.11-0.59); #Neutrophils 3.4 thou/uL (1.40-6.50); %Eosinophils 5.2 % (0.0-10.0); %Lymphocytes 15.1 % (21.0-51.0); %Monocytes 7.1 % (0.0-10.0); %Neutrophils 71.5 % (42.0-75.0); Mean Corpuscular HGB CONC 32.8 g/dL (32.0-36.0); Mean Corpuscular Hemoglobin 31.3 pg (27.0-31.0); Mean Corpuscular Volume 95.2 fL (78.0-98.0); Mean Platelet Volume 9.1 fL (7.4-10.4); Platelet Count 138 thou/uL (130-400); RBC Distribution Width 13.3 % (11.5-14.5); Red Blood Cell (RBC) Count 3.52 mill/uL (4.70-6.10); White Blood Cell (WBC) Count 4.7 thou/uL (4.8-10.8)
[2020-06-30 02:52] LABS: Anion Gap 14 mmol/L (10-20); BUN (Urea Nitrogen) 23 mg/dL (8.4-25.7); Calc. Creatinine Clearance 0 mL/min (70-130); Calcium 9.9 mg/dL (7.8-10.44); Carbon Dioxide 27 mmol/L (23-31); Chloride 101 mmol/L (98-107); Cholesterol 161 mg/dl (< 200 Desired); Estimated GFR-MDRD 8; Glucose 100 mg/dL (80-115); HDL Cholesterol 27 mg/dL (>60 Neg Risk); LDL Cholesterol, Calculated 114 mg/dL; Potassium 4.6 mmol/L (3.5-5.1); Sodium 137 mmol/L (136-145); Triglycerides 101 mg/dL (Less than 150)
[2020-06-30 07:53] LABS: Troponin I 0.475 ng/mL (< 0.028)
[2020-06-30] MEDS ORDERED: Metoprolol Tartrate 25 MG TAB PO SCH (09:00)
[2020-06-30] MEDS ORDERED: Nitroglycerin 0.4 MG TAB (25 Tab Bottle) SL PRN (09:19)
[2020-06-30] MEDS ORDERED: Morphine 2 MG/ML VIAL SLOW IVP PRN (09:19)
[2020-06-30] MEDS ORDERED: Albuterol Sulfate 2.5 mg/3 ml Neb IPPB PRN (10:44)
--- NOTE | 2020-06-30 10:52 | CON ---
DATE OF CONSULTATION: REASON FOR CONSULTATION: Non-ST elevation myocardial infarction. Package Pick Up who seen here previously was Dr. Adam Henry. Patient has previously seen Dr. Dillon Alvarez. HISTORY OF PRESENT ILLNESS: Mr. Lobato is a 59-year-old gentleman with history of coronary artery disease with previous stent implantation, was hospitalized with chest pain at this institution in September of this year, underwent cardiac catheterization, was found to have patent stents to the LAD and circumflex, small distal vessels, diffuse disease. The patient came to the hospital yesterday with prolonged episode of chest pain and shortness of breath. Ultimately, the pain was relieved and the patient's troponin was initially indeterminate, but now is in the range of a non-ST elevation infarction. He is currently pain free, but feels short of breath. PAST MEDICAL HISTORY: He is on hemodialysis, dialyzes Thursday, Thursday, Thursday. He said he did get dialysis yesterday. SOCIAL HISTORY: He continues to smoke, says "I would need one now." MEDICATIONS AT HOME: 1. Ticagrelor 90 mg twice a day. 2. Sodium bicarbonate. 3. He says he takes aspirin intermittently. 4. He says he is not on a statin. He said "my cholesterol has always been normal.". REVIEW OF SYSTEMS: CONSTITUTIONAL: Positive for chest pain and shortness of breath. GASTROINTESTINAL: No nausea, vomiting, diarrhea. SKIN: No rashes. NEUROLOGIC: No unilateral weakness or numbness. PSYCHIATRIC: No unusual depression or anxiety. HEMATOLOGIC: No unusual bruising. GENITOURINARY: No burning with urination. PHYSICAL EXAMINATION: GENERAL: This is a 59-year-old man, who looks older than his chronologic age. VITAL SIGNS: Blood pressure 116/66, pulse 90 and sinus. LUNGS: Clear. CARDIAC: Normal S1, normal S2. ABDOMEN: Soft, nontender. EXTREMITIES: Warm dry. No clubbing or cyanosis. There is no edema. LABORATORY STUDIES: Troponin level started 0.18, went to 0.475. EKG, no acute changes. ASSESSMENT: 1. Coronary artery disease with previous stent implantation. 2. [id number] myocardial infarction, likely due to small vessel disease. 3. Hypercholesterolemia. 4. Continued smoking. PLAN: 1. Aspirin. 2. Brilinta. 3. Add beta blockers. 4. Add nitrates. 5. Add statins. 6. Discussed smoking cessation. The patient states that he wishes to have a cigarette. I will keep over the weekend at least until tomorrow. Dr. Henry will resume care on Thursday. Medical therapy appears appropriate. Job ID: [id number]
[2020-06-30] MEDS: Aspirin 81 mg Enteric Coated Tablet PO SCH (11:13)
[2020-06-30] MEDS: TICAGRELOR 90 MG TABLET PO SCH ×2 (11:13→20:47)
[2020-06-30 16:27] LABS: Troponin I 3.079 ng/mL (< 0.028)
[2020-06-30] MEDS: Heparin 5,000 UNITS/ML VIAL SC SCH ×2 (16:44→20:48)
[2020-06-30] MEDS ORDERED: Pantoprazole 40 MG GRANULES PACKET PO SCH (17:00)
[2020-06-30] MEDS: Rosuvastatin 20 MG TAB PO SCH (20:46)
[2020-06-30] MEDS ORDERED: FLU VACC QS2020-21(6MOS UP)/PF 60 MCG/0.5 ML SYRINGE IM ONE (21:00)
[2020-07-01 05:12] LABS: #Basophils 0.1 thou/uL (0.0-0.2); #Eosinphils 0.2 thou/uL (0.0-0.7); #Lymphocytes 0.9 thou/uL (1.20-3.40); #Monocytes 0.3 thou/uL (0.11-0.59); #Neutrophils 3.2 thou/uL (1.40-6.50); %Basophils 1.1 % (0.0-1.0); %Eosinophils 4.9 % (0.0-10.0); %Lymphocytes 19.9 % (21.0-51.0); %Monocytes 6.7 % (0.0-10.0); %Neutrophils 67.4 % (42.0-75.0); Hemoglobin 10.2 g/dL (14.0-18.0); Mean Corpuscular HGB CONC 32.1 g/dL (32.0-36.0); Mean Corpuscular Hemoglobin 30.5 pg (27.0-31.0); Mean Corpuscular Volume 95.2 fL (78.0-98.0); Mean Platelet Volume 9.2 fL (7.4-10.4); Platelet Count 143 thou/uL (130-400); RBC Distribution Width 13.2 % (11.5-14.5); Red Blood Cell (RBC) Count 3.34 mill/uL (4.70-6.10); White Blood Cell (WBC) Count 4.7 thou/uL (4.8-10.8)
[2020-07-01 05:35] LABS: Anion Gap 18 mmol/L (10-20); BUN (Urea Nitrogen) 37 mg/dL (8.4-25.7); Calc. Creatinine Clearance 13 mL/min (70-130); Calcium 9.5 mg/dL (7.8-10.44); Carbon Dioxide 22 mmol/L (23-31); Chloride 102 mmol/L (98-107); Estimated GFR-MDRD 6; Glucose 142 mg/dL (80-115); Potassium 5.1 mmol/L (3.5-5.1); Sodium 137 mmol/L (136-145)
[2020-07-01] MEDS: Aspirin 81 mg Enteric Coated Tablet PO SCH (08:21)
[2020-07-01] MEDS: Pantoprazole 40 MG GRANULES PACKET PO SCH (08:22)
[2020-07-01] MEDS: Heparin 5,000 UNITS/ML VIAL SC SCH ×3 (08:22→22:28)
[2020-07-01] MEDS: TICAGRELOR 90 MG TABLET PO SCH ×2 (08:22→22:27)
--- NOTE | 2020-07-01 10:53 | PRG ---
DATE OF SERVICE: 07/01/2020 SUBJECTIVE: Mr. Lobato is feeling much better today. He is not having chest pain. OBJECTIVE: VITAL SIGNS: His blood pressure 116/69, pulse 90 and regular. LUNGS: Clear. CARDIAC: Normal S1, normal S2. ABDOMEN: Soft, nontender. PERTINENT LABORATORY DATA: Troponin went to 3.079. ASSESSMENT: 1. Status post [id number] myocardial infarction. 2. End-stage renal disease, on dialysis. 3. Previous catheterization with patent stents in the left anterior descending and circumflex with distal atherosclerosis. PLAN: We will keep the patient n.p.o. after midnight to make sure Dr. Henry does not think further intervention would be indicated. From reading the notes, it seems unlikely, but we will keep n.p.o. until Dr. Henry sees. ADDENDUM: The patient also had some accelerated idioventricular rhythm, rate in the mid 90s today, asymptomatic. Job ID: [id number]
--- NOTE | 2020-07-01 12:39 | PDOC.HOSPP ---
- Subjective Encounter Date: 07/01/20 Subjective: The patient denies any significant chest pain today. - Objective Vital Signs & Weight: Vital Signs (12 hours) Temp Pulse Resp BP Pulse Ox 07/01/20 11:00 97.7 F 85 18 117/73 93 L 07/01/20 07:10 98.2 F 91 20 116/69 94 L 07/01/20 04:00 97.1 F L 90 18 118/59 L 94 L Weight Weight 228 lb I&O: 06/30/20 07/01/20 07/02/20 06:59 06:59 06:59 Intake Total 450 850 Output Total 125 600 Balance 325 250 Result Diagrams: 07/01/20 04:37 07/01/20 04:37 Hospitalist ROS - Medication Medications: Active Medications Generic Name Dose Route Start Last Admin Trade Name Freq PRN Reason Stop Dose Admin Aspirin 81 mg 06/30/20 09:00 07/01/20 08:21 Aspirin 81 Mg Enteric Coated Tablet PO 81 mg DAILY MARILOU Administration Heparin Sodium (Porcine) 5,000 units 06/30/20 15:00 07/01/20 08:22 Heparin 5,000 Units/Ml Vial SC 07/01/20 23:59 5,000 units TID MARILOU Administration Isosorbide Mononitrate 30 mg 07/01/20 09:00 07/01/20 08:22 Isosorbide Mononitrate Er 30 Mg Tab PO 30 mg DAILY MARILOU Administration Metoprolol Succinate 12.5 mg 07/01/20 09:00 07/01/20 08:21 Metoprolol Succinate Xl 25 Mg Tab PO 12.5 mg DAILY MARILOU Administration Pantoprazole Sodium 40 mg 07/01/20 09:00 07/01/20 08:22 Pantoprazole 40 Mg Granules Packet PO Not Given DAILY MARILOU Rosuvastatin Calcium 20 mg 06/30/20 21:00 06/30/20 20:46 Rosuvastatin 20 Mg Tab PO 20 mg HS MARILOU Administration Sodium Chloride 10 ml 06/30/20 21:00 07/01/20 08:29 Flush - Normal Saline 10 Ml Syringe IVF 10 ml Q12HR MARILOU Administration Ticagrelor 90 mg 06/30/20 09:00 07/01/20 08:22 Ticagrelor 90 Mg Tablet PO 90 mg BID MARILOU Administration - Exam General Appearance: awake alert ENT: normocephalic atraumatic Neck: supple, no JVD Heart: RRR Respiratory: normal chest expansion, no tachypnea Extremities: no cyanosis, no clubbing Neurological: cranial nerve grossly intact, no focal deficits Hosp A/P (1) NSTEMI (non-ST elevated myocardial infarction) Code(s): I21.4 - NON-ST ELEVATION (NSTEMI) MYOCARDIAL INFARCTION Status: Acute (2) CAD (coronary artery disease) Code(s): I25.10 - ATHSCL HEART DISEASE OF [place] CORONARY ARTERY W/O ANG PCTRS Status: Chronic (3) Dyslipidemia Code(s): E78.5 - HYPERLIPIDEMIA, UNSPECIFIED Status: Chronic (4) ESRD (end stage renal disease) on dialysis Code(s): N18.6 - END STAGE RENAL DISEASE; Z99.2 - DEPENDENCE ON RENAL DIALYSIS Status: Chronic (5) HTN (hypertension) Code(s): I10 - ESSENTIAL (PRIMARY) HYPERTENSION Status: Chronic - Plan The patient is on aspirin, Brilinta, metoprolol, isosorbide mononitrate's, and atorvastatin. He denies any chest pain today. The patient will be kept n.p.o. after midnight and will be seen by Dr. Henry tomorrow to decide on any further intervention.
[2020-07-01] MEDS: Rosuvastatin 20 MG TAB PO SCH (22:26)
[2020-07-02 05:16] LABS: #Basophils 0.1 thou/uL (0.0-0.2); #Eosinphils 0.3 thou/uL (0.0-0.7); #Lymphocytes 1.1 thou/uL (1.20-3.40); #Monocytes 0.4 thou/uL (0.11-0.59); #Neutrophils 3.5 thou/uL (1.40-6.50); %Basophils 1.2 % (0.0-1.0); %Eosinophils 5.6 % (0.0-10.0); %Lymphocytes 21.4 % (21.0-51.0); %Monocytes 6.6 % (0.0-10.0); %Neutrophils 65.2 % (42.0-75.0); Hemoglobin 10.5 g/dL (14.0-18.0); Mean Corpuscular HGB CONC 31.7 g/dL (32.0-36.0); Mean Corpuscular Hemoglobin 30.3 pg (27.0-31.0); Mean Corpuscular Volume 95.8 fL (78.0-98.0); Mean Platelet Volume 9.4 fL (7.4-10.4); Platelet Count 152 thou/uL (130-400); RBC Distribution Width 13.2 % (11.5-14.5); Red Blood Cell (RBC) Count 3.46 mill/uL (4.70-6.10); White Blood Cell (WBC) Count 5.3 thou/uL (4.8-10.8)
[2020-07-02 05:37] LABS: Anion Gap 19 mmol/L (10-20); BUN (Urea Nitrogen) 45 mg/dL (8.4-25.7); Calc. Creatinine Clearance 11 mL/min (70-130); Calcium 9.7 mg/dL (7.8-10.44); Carbon Dioxide 22 mmol/L (23-31); Chloride 102 mmol/L (98-107); Estimated GFR-MDRD 5; Glucose 88 mg/dL (80-115); Potassium 5.3 mmol/L (3.5-5.1); Sodium 138 mmol/L (136-145)
[2020-07-02] MEDS: Aspirin 81 mg Enteric Coated Tablet PO SCH (08:45)
[2020-07-02] MEDS: Pantoprazole 40 MG GRANULES PACKET PO SCH (08:46)
--- NOTE | 2020-07-02 10:43 | CON ---
DATE OF CONSULTATION: REASON FOR CONSULTATION: Stage 6 chronic kidney disease for maintenance hemodialysis. HISTORY OF PRESENT ILLNESS: This is a very pleasant 59-year-old gentleman who presented to the hospital with chest pain. The patient does dialysis on Thursday, Thursday, Thursday. The patient denies any chest pain at this time. PAST MEDICAL HISTORY: Significant for coronary artery disease, hypertension, anemia, history of nonsustained V-tach, peripheral vascular disease, history of AV fistula, history of left femoral-popliteal bypass, history of smoking, history of drug use, history of heart catheterization, history of multiple dialysis catheters. SOCIAL ECONOMIC HISTORY: History of drug use and smoking. ALLERGIES: REVIEWED. MEDICATIONS: Home medication list reviewed. Hospital medication list reviewed. FAMILY HISTORY: Negative for ESRD. PHYSICAL EXAMINATION: GENERAL: The patient is awake, alert. VITAL SIGNS: Afebrile, pulse 90, breathing 16, blood pressure 127/82. HEENT: Head normocephalic and atraumatic. Eyes intact, no ulcers. Nose intact, no ulcers. Ears intact, no ulcers. NECK: Supple. No JVD. CHEST: Symmetrical and clear. CARDIOVASCULAR: Shows S1 and S2, no rub, no murmur. GASTROINTESTINAL: Abdomen is soft, bowel sounds positive. EXTREMITIES: Show no edema or ulcers. SKIN: Shows no rash or petechiae. MUSCULOSKELETAL: Shows no joint swelling or stiffness. GENITOURINARY: Shows no Sosa or CVA tenderness. NEUROLOGIC: Motor intact. Cranial nerves intact. LABORATORY DATA: Labs reviewed. ASSESSMENT AND PLAN: 1. Stage 6 chronic kidney disease. Plan: Dialysis. 2. Hyperkalemia. Plan: Dialysis. 3. Anemia, stable. 4. Medication based on GFR, appropriate. Job ID: [id number]
[2020-07-02] MEDS ORDERED: Iopamidol 370 76% 100 ML VIAL ONE (11:15)
[2020-07-02] MEDS ORDERED: Nitroglycerin 100MG/250ML BOT 250 ML ONE ×2 (11:35→12:40)
[2020-07-02] MEDS ORDERED: Verapamil 5 MG/2 ML VIAL ONE (11:35)
[2020-07-02] MEDS ORDERED: Lidocaine 1% (PF) 30 ML VIAL ONE (11:35)
[2020-07-02] MEDS ORDERED: Heparin 10,000 UNITS/ 10 ML VIAL ONE (11:35)
[2020-07-02] MEDS: TICAGRELOR 90 MG TABLET PO SCH ×2 (11:51→20:20)
[2020-07-02] MEDS ORDERED: Midazolam HCl 2 mg/2 ml Vial ONE (11:59)
[2020-07-02] MEDS ORDERED: Fentanyl 100 MCG/2 ML VIAL ONE (11:59)
--- NOTE | 2020-07-02 12:27 | PDOC.HOSPP ---
- Subjective Encounter Date: 07/02/20 Subjective: The patient denies chest pain or shortness of breath. - Objective Vital Signs & Weight: Vital Signs (12 hours) Temp Pulse Resp BP Pulse Ox 07/02/20 07:28 98.0 F 88 18 124/84 94 L 07/02/20 04:15 97.9 F 90 18 127/82 93 L Weight Weight 228 lb I&O: 07/01/20 07/02/20 07/03/20 06:59 06:59 06:59 Intake Total 850 1450 Output Total 600 1900 Balance 250 -450 Result Diagrams: 07/02/20 04:49 07/02/20 04:49 Hospitalist ROS - Medication Medications: Active Medications Generic Name Dose Route Start Last Admin Trade Name Michaelq PRN Reason Stop Dose Admin Aspirin 81 mg 06/30/20 09:00 07/02/20 08:45 Aspirin 81 Mg Enteric Coated Tablet PO 81 mg DAILY MARILOU Administration Isosorbide Mononitrate 30 mg 07/01/20 09:00 07/02/20 08:45 Isosorbide Mononitrate Er 30 Mg Tab PO 30 mg DAILY MARILOU Administration Metoprolol Succinate 12.5 mg 07/01/20 09:00 07/02/20 08:45 Metoprolol Succinate Xl 25 Mg Tab PO 12.5 mg DAILY MARILOU Administration Pantoprazole Sodium 40 mg 07/01/20 09:00 07/02/20 08:46 Pantoprazole 40 Mg Granules Packet PO Not Given DAILY MARILOU Rosuvastatin Calcium 20 mg 06/30/20 21:00 07/01/20 22:26 Rosuvastatin 20 Mg Tab PO 20 mg HS MARILOU Administration Sodium Chloride 10 ml 06/30/20 21:00 07/02/20 08:46 Flush - Normal Saline 10 Ml Syringe IVF 10 ml Q12HR MARILOU Administration Ticagrelor 90 mg 06/30/20 09:00 07/02/20 11:51 Ticagrelor 90 Mg Tablet PO Not Given BID MARILOU - Exam General Appearance: awake alert Eye: PERRL ENT: normocephalic atraumatic Neck: supple, no JVD Heart: RRR Respiratory: normal chest expansion, no tachypnea Neurological: cranial nerve grossly intact, no focal deficits Hosp A/P (1) NSTEMI (non-ST elevated myocardial infarction) Code(s): I21.4 - NON-ST ELEVATION (NSTEMI) MYOCARDIAL INFARCTION Status: Acute (2) CAD (coronary artery disease) Code(s): I25.10 - ATHSCL HEART DISEASE OF [place] CORONARY ARTERY W/O ANG PCTRS Status: Chronic (3) Dyslipidemia Code(s): E78.5 - HYPERLIPIDEMIA, UNSPECIFIED Status: Chronic (4) ESRD (end stage renal disease) on dialysis Code(s): N18.6 - END STAGE RENAL DISEASE; Z99.2 - DEPENDENCE ON RENAL DIALYSIS Status: Chronic (5) HTN (hypertension) Code(s): I10 - ESSENTIAL (PRIMARY) HYPERTENSION Status: Chronic - Plan The patient is on aspirin, Brilinta, metoprolol, isosorbide mononitrate's, and atorvastatin. He denies any chest pain today. Hemodialysis today. Awaiting evaluation by his water tender.
[2020-07-02] MEDS ORDERED: Sodium Chloride 0.9% 200 ML IV PRN (13:02)
[2020-07-02] MEDS ORDERED: Acetaminophen/Codeine 30-300mg Tablet PO PRN (13:02)
[2020-07-02] MEDS: Rosuvastatin 20 MG TAB PO SCH (20:19)
[2020-07-03] MEDS ORDERED: Acetaminophen 325 MG TAB PO PRN (03:57)
[2020-07-03 05:16] LABS: #Eosinphils 0.3 thou/uL (0.0-0.7); #Lymphocytes 0.9 thou/uL (1.20-3.40); #Monocytes 0.4 thou/uL (0.11-0.59); #Neutrophils 3.3 thou/uL (1.40-6.50); %Basophils 0.8 % (0.0-1.0); %Lymphocytes 18.2 % (21.0-51.0); %Monocytes 7.3 % (0.0-10.0); %Neutrophils 67.7 % (42.0-75.0); Hemoglobin 11.2 g/dL (14.0-18.0); Mean Corpuscular HGB CONC 32.3 g/dL (32.0-36.0); Mean Corpuscular Hemoglobin 30.5 pg (27.0-31.0); Mean Corpuscular Volume 94.2 fL (78.0-98.0); Platelet Count 152 thou/uL (130-400); RBC Distribution Width 13.2 % (11.5-14.5); Red Blood Cell (RBC) Count 3.67 mill/uL (4.70-6.10); White Blood Cell (WBC) Count 4.9 thou/uL (4.8-10.8)
[2020-07-03 05:32] LABS: Anion Gap 15 mmol/L (10-20); BUN (Urea Nitrogen) 32 mg/dL (8.4-25.7); Calc. Creatinine Clearance 14 mL/min (70-130); Calcium 8.6 mg/dL (7.8-10.44); Carbon Dioxide 27 mmol/L (23-31); Chloride 101 mmol/L (98-107); Estimated GFR-MDRD 7; Glucose 91 mg/dL (80-115); Potassium 5.2 mmol/L (3.5-5.1); Sodium 138 mmol/L (136-145)
[2020-07-03] MEDS: Pantoprazole 40 MG GRANULES PACKET PO SCH ×2 (09:33→09:36)
[2020-07-03] MEDS: Aspirin 81 mg Enteric Coated Tablet PO SCH (09:33)
[2020-07-03] MEDS: TICAGRELOR 90 MG TABLET PO SCH (09:34)
--- NOTE | 2020-07-03 10:06 | PRG ---
DATE OF SERVICE: 07/03/2020 SUBJECTIVE: A 59-year-old gentleman being seen for end-stage renal disease. The patient denies any nausea, vomiting, or chest pain. PHYSICAL EXAMINATION: General: The patient is awake and alert. Vital Signs: Afebrile, pulse 75, breathing at 16, blood pressure 127/74. HEENT: Head normocephalic and atraumatic. Eyes intact, no ulcers. Nose intact, no ulcers. Ears intact, no ulcers. Neck: Supple. No JVD. Chest: Symmetrical and clear. Cardiovascular: Shows S1 and S2, no rub, no murmur. Gastrointestinal: Abdomen is soft, bowel sounds positive. Extremities: Show no edema or ulcers. Skin: Shows no rash or petechiae. Musculoskeletal: Shows no joint swelling or stiffness. Genitourinary: Shows no Sosa or CVA tenderness. Neurologic: Motor intact. Cranial nerves intact. LABORATORY DATA: Labs reviewed. ASSESSMENT AND PLAN: 1. Stage 6 chronic kidney disease, plan dialysis. 2. Hypertension, stable. 3. Anemia, stable. 4. Medication based on GFR appropriate. Job ID: [id number]
[2020-07-03 11:23] LABS: Anion Gap 15 mmol/L (10-20); BUN (Urea Nitrogen) 34 mg/dL (8.4-25.7); Calc. Creatinine Clearance 13 mL/min (70-130); Calcium 8.9 mg/dL (7.8-10.44); Carbon Dioxide 28 mmol/L (23-31); Chloride 99 mmol/L (98-107); Estimated GFR-MDRD 6; Glucose 169 mg/dL (80-115); Sodium 137 mmol/L (136-145)
--- NOTE | 2020-07-03 13:00 | PDOC.HOSPP ---
- Subjective Encounter Date: 07/03/20 Subjective: No new events overnight. - Objective Vital Signs & Weight: Vital Signs (12 hours) Temp Pulse Resp BP Pulse Ox 07/03/20 11:46 98.1 F 89 20 110/66 96 07/03/20 07:40 98.3 F 87 16 108/68 95 07/03/20 04:00 98.3 F 86 17 106/67 93 L Weight Weight 224 lb 1.6 oz I&O: 07/02/20 07/03/20 07/04/20 06:59 06:59 06:59 Intake Total 1450 1320 Output Total 1900 1300 Balance -450 20 Result Diagrams: 07/03/20 04:40 07/03/20 10:48 Hospitalist ROS - Medication Medications: Active Medications Generic Name Dose Route Start Last Admin Trade Name Freq PRN Reason Stop Dose Admin Acetaminophen/Codeine Phosphate 1 tab 07/02/20 13:02 07/02/20 21:43 Acetaminophen/Codeine 30-300mg Tablet PO 1 tab Q4H PRN Administration Mild Pain (1-3) Aspirin 81 mg 06/30/20 09:00 07/03/20 09:33 Aspirin 81 Mg Enteric Coated Tablet PO 81 mg DAILY MARILOU Administration Isosorbide Mononitrate 30 mg 07/01/20 09:00 07/03/20 09:32 Isosorbide Mononitrate Er 30 Mg Tab PO 30 mg DAILY MARILOU Administration Metoprolol Succinate 12.5 mg 07/01/20 09:00 07/03/20 09:33 Metoprolol Succinate Xl 25 Mg Tab PO 12.5 mg DAILY MARILOU Administration Pantoprazole Sodium 40 mg 07/01/20 09:00 07/03/20 09:36 Pantoprazole 40 Mg Granules Packet PO Not Given DAILY MARILOU Rosuvastatin Calcium 20 mg 06/30/20 21:00 07/02/20 20:19 Rosuvastatin 20 Mg Tab PO 20 mg HS MARILOU Administration Sodium Chloride 10 ml 06/30/20 21:00 07/03/20 09:34 Flush - Normal Saline 10 Ml Syringe IVF 10 ml Q12HR MARILOU Administration Ticagrelor 90 mg 06/30/20 09:00 07/03/20 09:34 Ticagrelor 90 Mg Tablet PO Not Given BID MARILOU - Exam General Appearance: awake alert ENT: normocephalic atraumatic Neck: supple, no JVD Heart: RRR Respiratory: normal chest expansion, no tachypnea Neurological: cranial nerve grossly intact, no focal deficits Hosp A/P (1) NSTEMI (non-ST elevated myocardial infarction) Code(s): I21.4 - NON-ST ELEVATION (NSTEMI) MYOCARDIAL INFARCTION Status: Acute (2) CAD (coronary artery disease) Code(s): I25.10 - ATHSCL HEART DISEASE OF [place] CORONARY ARTERY W/O ANG PCTRS Status: Chronic (3) Dyslipidemia Code(s): E78.5 - HYPERLIPIDEMIA, UNSPECIFIED Status: Chronic (4) ESRD (end stage renal disease) on dialysis Code(s): N18.6 - END STAGE RENAL DISEASE; Z99.2 - DEPENDENCE ON RENAL DIALYSIS Status: Chronic (5) HTN (hypertension) Code(s): I10 - ESSENTIAL (PRIMARY) HYPERTENSION Status: Chronic - Plan The patient is on aspirin, Brilinta, metoprolol, isosorbide mononitrate's, and atorvastatin. Status post cardiac cath showing severe disease involving the circumflex, large diagonal, mid LAD, and severe RPL. Ejection fraction is 35 to 40%. The patient was referred to cardiovascular surgery for CABG consideration.
--- NOTE | 2020-07-03 17:56 | PDOC.CPN ---
- Subjective Date: 07/03/20 Time: 17:53 Interval history: No chest pain, no new issues. - Review of Systems General: denies: fever/chills, weight/appetite/sleep changes, night sweats, fatigue Respiratory: denies: cough, congestion, shortness of breath, exercise intolerance Cardiovascular: denies: chest pain, palpitation, edema, paroxysmal nocturnal dyspnea, orthopnea Gastrointestinal: denies: nausea, vomiting, diarrhea, constipation, abd pain, GI bleeding Musculoskeletal: denies: pain, tenderness, stiffness, swelling, arthritis/arthralgias Neurological: denies: numbness, syncope, seizure, weakness - Objective Allergies/Adverse Reactions: Allergies Allergy/AdvReac Type Severity Reaction Status Date / Time lorazepam [From Ativan] Allergy Unknown Verified 06/30/20 02:54 niacin Allergy Unknown Verified 06/30/20 02:54 Visit Medications: Current Medications Acetaminophen (Acetaminophen 325 Mg Tab) 650 mg PO Q4H PRN PRN Reason: Headache/Fever or Pain Acetaminophen/Codeine Phosphate (Acetaminophen/Codeine 30-300mg Tablet) 1 tab PO Q4H PRN PRN Reason: Mild Pain (1-3) Last Admin: 07/02/20 21:43 Dose: 1 tab Documented by: Albuterol Sulfate (Albuterol Sulfate 2.5 Mg/3 Ml Neb) 2.5 mg IPPB [id number] PRN PRN Reason: Wheezing Aspirin (Aspirin 81 Mg Enteric Coated Tablet) 81 mg PO DAILY [facility] Last Admin: 07/03/20 09:33 Dose: 81 mg Documented by: Isosorbide Mononitrate (Isosorbide Mononitrate Er 30 Mg Tab) 30 mg PO DAILY [facility] Last Admin: 07/03/20 09:32 Dose: 30 mg Documented by: Metoprolol Succinate (Metoprolol Succinate Xl 25 Mg Tab) 12.5 mg PO DAILY [facility] Last Admin: 07/03/20 09:33 Dose: 12.5 mg Documented by: Morphine Sulfate (Morphine 2 Mg/Ml Vial) 2 mg SLOW IVP Q4H PRN PRN Reason: Pain Nitroglycerin (Nitroglycerin 0.4 Mg Tab (25 Tab Bottle)) 0.4 mg SL Q5MIN PRN PRN Reason: Chest Pain Pantoprazole Sodium (Pantoprazole 40 Mg Granules Packet) 40 mg PO DAILY [facility] Last Admin: 07/03/20 09:36 Dose: Not Given Documented by: Rosuvastatin Calcium (Rosuvastatin 20 Mg Tab) 20 mg PO HS [facility] Last Admin: 07/02/20 20:19 Dose: 20 mg Documented by: Sodium Chloride (Flush - Normal Saline 10 Ml Syringe) 10 ml IVF Q12HR MARILOU Last Admin: 07/03/20 09:34 Dose: 10 ml Documented by: Sodium Chloride (Flush - Normal Saline 10 Ml Syringe) 10 ml IVF PRN PRN PRN Reason: Saline Flush Vital Signs & Weight: Vital Signs Temp Pulse Resp BP Pulse Ox 07/03/20 16:09 98.5 F 85 18 111/63 96 07/03/20 11:46 98.1 F 89 20 110/66 96 07/03/20 07:40 98.3 F 87 16 108/68 95 Weight 224 lb 1.6 oz - Physical Exam General: alert & oriented x3 HEENT: mucus membranes moist Neck: supple neck Cardiac: regular rate and rhythm Lungs: normal breath sounds Neuro: grossly intact Abdomen: active bowel sounds Extremities: no edema Skin: clear Musculoskeletal: no pain - Labs Result Diagrams: 07/03/20 04:40 07/03/20 10:48 Troponin/CKMB CK-MB (CK-2) 1.9 ng/mL (0-6.6) 06/30/20 00:07 Troponin I 3.079 ng/mL (< 0.028) H* 06/30/20 15:06 - Telemetry Sinus rhythms and dysrhythmias: sinus rhythm - Assessment/Plan Assessment/Plan: 1. NSTEMI 2. CAD 3. ESRD PLAN: - He was evaluated by CT surgery and recommended transfer to [facility] for complex bypass versus complex PCI. - I spoke with Dr. Castellano and will begin proceed to transfer to [facility].
[2020-07-03] MEDS: Rosuvastatin 20 MG TAB PO SCH (20:35)
[2020-07-03 22:13] VITALS: BP 129/79; TEMP 98
== END 2020-07-04 00:27 | disposition short-term general hospital (02) | DRG 280 ==
LOC: ERS 23:46 → 2SW 06-30 01:31 → OBSVTOIN 06-30 17:50
PROVIDERS: ADMIT Internal Medicine; ATTEND Internal Medicine
PROC: 3E02340 Introduction of Influenza Vaccine into Muscle, Percutaneous Approach (ICD-10-PCS; 2020-07-01)
PROC: 4A023N7 Measurement of Cardiac Sampling and Pressure, Left Heart, Percutaneous Approach (ICD-10-PCS; principal; 2020-07-02)
PROC: B2151ZZ Fluoroscopy of Left Heart using Low Osmolar Contrast (ICD-10-PCS; 2020-07-02)
PROC: B2111ZZ Fluoroscopy of Multiple Coronary Arteries using Low Osmolar Contrast (ICD-10-PCS; 2020-07-02)
PROC: 5A1D70Z Performance of Urinary Filtration, Intermittent, Less than 6 Hours Per Day (ICD-10-PCS; 2020-07-02)
DX: I21.4 Non-ST elevation (NSTEMI) myocardial infarction (principal); N18.6 End stage renal disease; I12.0 Hypertensive chronic kidney disease with stage 5 chronic kidney disease or end stage renal disease; I44.2 Atrioventricular block, complete; I25.10 Atherosclerotic heart disease of native coronary artery without angina pectoris; E78.00 Pure hypercholesterolemia, unspecified; F17.210 Nicotine dependence, cigarettes, uncomplicated; E78.5 Hyperlipidemia, unspecified; E87.5 Hyperkalemia; D63.1 Anemia in chronic kidney disease; Z23 Encounter for immunization; Z99.2 Dependence on renal dialysis; Z95.5 Presence of coronary angioplasty implant and graft; Z88.8 Allergy status to other drugs, medicaments and biological substances; Z79.899 Other long term (current) drug therapy
CPT/HCPCS: 36415; 71045; 76942; 80048; 80053; 80061; 82550; 82553; 84484; 85025; 85730; 90471; 90662; 90935; 93005; 93306; 93458; 94760; 99152; G0008; G0257; G0378; J1644; J2001; J2250; J3010; Q9967

== ENCOUNTER 2021-02-10 21:31 | Inpatient (IN) | payer MEDICARE, OTHER ==
[2021-02-10 22:26] LABS: Bacteria/HPF None Seen HPF (None Seen); Bilirubin Negative (Negative); Blood, Urine 2+ (Negative); Clarity Clear (Clear); Glucose, Urine (Dipstick) 200 mg/dL (Negative); Ketone, Urine Negative (Negative); Leukocyte Negative Leu/uL (Negative); Nitrite Negative (Negative); Protein, Urine (Dipstick) 100 mg/dL (Neg-Trace); Renal Epithelial 0-3 HPF (None Seen); Specific Gravity, Urine 1.009 (1.002-1.036); Squamous Epithelial None Seen HPF (0-3); Urobilinogen Normal mg/dL (Less than 2); pH, Urine 7.5 (5.0-9.0)
[2021-02-10 22:33] LABS: #Eosinphils 0.2 thou/uL (0.0-0.7); #Lymphocytes 0.8 thou/uL (1.20-3.40); #Monocytes 0.6 thou/uL (0.11-0.59); #Neutrophils 5.2 thou/uL (1.40-6.50); %Eosinophils 2.8 % (0.0-10.0); %Lymphocytes 11.8 % (21.0-51.0); %Monocytes 9.1 % (0.0-10.0); %Neutrophils 76.3 % (42.0-75.0); Hemoglobin 11.1 g/dL (14.0-18.0); Mean Corpuscular Hemoglobin 30.1 pg (27.0-31.0); Mean Corpuscular Volume 94.2 fL (78.0-98.0); Mean Platelet Volume 8.3 fL (7.4-10.4); Platelet Count 158 thou/uL (130-400); RBC Distribution Width 13.1 % (11.5-14.5); Red Blood Cell (RBC) Count 3.67 mill/uL (4.70-6.10); White Blood Cell (WBC) Count 6.8 thou/uL (4.8-10.8)
[2021-02-10 22:52] LABS: Phosphorus 8.2 mg/dL (2.3-4.7)
[2021-02-10 22:56] LABS: ALT (SGPT) 8 U/L (8-55); AST (SGOT) 9 U/L (5-34); Albumin 3.9 g/dL (3.4-4.8); Alkaline Phosphatase 53 U/L (40-110); Anion Gap 26 mmol/L (10-20); BUN (Urea Nitrogen) 77 mg/dL (8.4-25.7); Bilirubin, Total 0.5 mg/dL (0.2-1.2); Calc. Creatinine Clearance 0 mL/min (70-130); Calcium 9.3 mg/dL (7.8-10.44); Carbon Dioxide 14 mmol/L (23-31); Chloride 101 mmol/L (98-107); Globulin 3.7 g/dL (2.4-3.5); Glucose 90 mg/dL (80-115); Magnesium 2.2 mg/dL (1.6-2.6); Protein, Total 7.6 g/dL (5.8-8.1); Sodium 133 mmol/L (136-145)
[2021-02-10 23:07] LABS: Potassium 7.7 mmol/L (3.5-5.1)
[2021-02-10] MEDS ORDERED: Insulin Regular 300 UNITS/3 ML VIAL ONE (23:24)
[2021-02-10] MEDS ORDERED: Calcium Chloride 1 GM/10 ML Abboject SYRINGE ONE (23:24)
[2021-02-10] MEDS ORDERED: Sodium Bicarb 50 MEQ/50 ML Abboject 8.4% SYRINGE ONE (23:24)
[2021-02-10] MEDS ORDERED: Dextrose 50% Abboject 50 ML SYRINGE ONE (23:24)
[2021-02-10] MEDS ORDERED: Albuterol Sulfate 2.5 mg/3 ml Neb ONE (23:28)
[2021-02-11] MEDS ORDERED: Dextrose 50% Abboject 50 ML SYRINGE ONE (01:47)
[2021-02-11 01:53] LABS: Troponin I 0.037 ng/mL (< 0.028)
[2021-02-11 02:04] VITALS: BMI 29.8
[2021-02-11 02:32] LABS: HBSAg Index 0.21 S/CO (0-0.99); Hep B Surf Ag Non-Reactive S/CO (NonReactive)
[2021-02-11 07:06] LABS: Troponin I 0.026 ng/mL (< 0.028)
[2021-02-11 07:20] LABS: Anion Gap 19 mmol/L (10-20); BUN (Urea Nitrogen) 39 mg/dL (8.4-25.7); Calc. Creatinine Clearance 16 mL/min (70-130); Calcium 9.3 mg/dL (7.8-10.44); Carbon Dioxide 22 mmol/L (23-31); Chloride 100 mmol/L (98-107); Glucose 102 mg/dL (80-115); Phosphorus 4.6 mg/dL (2.3-4.7); Potassium 4.6 mmol/L (3.5-5.1); Sodium 136 mmol/L (136-145)
[2021-02-11] MEDS ORDERED: Dextrose 50% Abboject 50 ML SYRINGE SLOW IVP PRN (08:53)
[2021-02-11] MEDS ORDERED: Dextrose 5% in Water 1,000 ML IV PRN (08:53)
[2021-02-11] MEDS ORDERED: Acetaminophen 325 MG TAB PO PRN (08:57)
[2021-02-11] MEDS ORDERED: Polyethylene Glycol 3350 17 GM Packet PO PRN (08:58)
[2021-02-11] MEDS ORDERED: Furosemide 20 MG TAB PO SCH (09:00)
[2021-02-11] MEDS ORDERED: Clopidogrel Bisulfate 75 MG TAB PO SCH (09:00)
[2021-02-11] MEDS ORDERED: Amiodarone 200 MG TAB PO SCH (09:00)
[2021-02-11] MEDS ORDERED: Rosuvastatin 20 MG TAB PO SCH (09:00)
[2021-02-11] MEDS ORDERED: Metoprolol Tartrate 25 MG TAB PO SCH (09:00)
[2021-02-11] MEDS ORDERED: Ondansetron ODT 4 MG TAB PO PRN (09:10)
[2021-02-11 11:31] VITALS: BP 121/57; TEMP 96.5
== END 2021-02-11 13:20 | disposition home or self-care (01) | DRG 640 ==
LOC: ERS 21:31 → 2NO 02-11 00:37
PROVIDERS: ADMIT Family Medicine; ATTEND Family Medicine
PROC: 5A1D70Z Performance of Urinary Filtration, Intermittent, Less than 6 Hours Per Day (ICD-10-PCS; principal; 2021-02-11)
DX: E87.5 Hyperkalemia (principal); N18.6 End stage renal disease; R44.0 Auditory hallucinations; E87.70 Fluid overload, unspecified; Z20.822 Contact with and (suspected) exposure to COVID-19; E83.39 Other disorders of phosphorus metabolism; I25.10 Atherosclerotic heart disease of native coronary artery without angina pectoris; I45.81 Long QT syndrome; I10 Essential (primary) hypertension; N28.1 Cyst of kidney, acquired; E78.5 Hyperlipidemia, unspecified; R44.1 Visual hallucinations; D63.1 Anemia in chronic kidney disease; I73.9 Peripheral vascular disease, unspecified; Z99.2 Dependence on renal dialysis; E16.2 Hypoglycemia, unspecified; Z88.8 Allergy status to other drugs, medicaments and biological substances; Z88.1 Allergy status to other antibiotic agents; Z79.899 Other long term (current) drug therapy; Z87.891 Personal history of nicotine dependence; Z95.5 Presence of coronary angioplasty implant and graft; Z98.890 Other specified postprocedural states
CPT/HCPCS: 36415; 36416; 71045; 80048; 80053; 81003; 81015; 82553; 83735; 83880; 84100; 84484; 85025; 87340; 90935; 93005; 96374; 96375; G0257; J1815; J7611

== ENCOUNTER 2021-05-14 09:54 | Day surgery (SDC) | payer MEDICARE ==
[2021-05-13 12:44] VITALS: BMI 32.3
[2021-05-14] MEDS ORDERED: Acetaminophen 500 MG TAB ONE (10:16)
[2021-05-14] MEDS ORDERED: Ioversol 68 % 50 ML VIAL ONE (10:42)
[2021-05-14] MEDS ORDERED: Fentanyl 100 MCG/2 ML VIAL ONE ×2 (10:45→11:58)
[2021-05-14] MEDS ORDERED: Phenylephrine 10 MG/ML VIAL ONE (11:56)
[2021-05-14] MEDS ORDERED: Propofol 1,000 MG/100 ML VIAL IV ONE ×2 (11:57→14:00)
[2021-05-14] MEDS ORDERED: Ondansetron PF 4 MG/2 ML Vial ONE (12:25)
[2021-05-14] MEDS ORDERED: Lidocaine 1% PF 5 ML VIAL ONE (12:25)
[2021-05-14] MEDS ORDERED: Bupivacaine HCl 0.5%/Epinephrine 1:200,000/PF 30 ml Vial ONE (12:25)
[2021-05-14] MEDS ORDERED: PROPOFOL 200 MG/20 ML VIAL ONE (12:25)
[2021-05-14] MEDS ORDERED: Lidocaine 1% w/Epinephrine 1:100K 20 ML VIAL ONE (14:32)
[2021-05-14] MEDS ORDERED: Bupivacaine 0.25% HCL 30 ML VIAL ONE (14:32)
[2021-05-14] MEDS ORDERED: Heparin 5,000 UNITS/ML VIAL ONE (14:32)
== END 2021-05-14 16:45 | disposition home or self-care (01) ==
LOC: SDC 09:54
PROVIDERS: ATTEND Surgery
PROC: 03L70CZ Occlusion of Right Brachial Artery with Extraluminal Device, Open Approach (ICD-10-PCS; principal; 2021-05-14)
DX: T82.838A Hemorrhage due to vascular prosthetic devices, implants and grafts, initial encounter (principal); N18.6 End stage renal disease; I25.2 Old myocardial infarction; I25.10 Atherosclerotic heart disease of native coronary artery without angina pectoris; E78.5 Hyperlipidemia, unspecified; Q61.3 Polycystic kidney, unspecified; Z86.73 Personal history of transient ischemic attack (TIA), and cerebral infarction without residual deficits; Z87.891 Personal history of nicotine dependence; Z79.02 Long term (current) use of antithrombotics/antiplatelets; Z79.82 Long term (current) use of aspirin; Z79.899 Other long term (current) drug therapy; Z88.8 Allergy status to other drugs, medicaments and biological substances; Z91.041 Radiographic dye allergy status; Z95.1 Presence of aortocoronary bypass graft; Z95.5 Presence of coronary angioplasty implant and graft; Z99.2 Dependence on renal dialysis
CPT/HCPCS: 88304; J0690; J1644; J2370; J2405; J2704; J3010; Q9967; S0020

== ENCOUNTER 2021-07-12 16:28 | Outpatient (CLI) | payer MEDICARE ==
[2021-05-10 10:25] LABS: #Eosinphils 0.4 10x3/uL (0.0-0.5); #Monocytes 0.5 10x3/uL (0.0-1.1); #Neutrophils 3.9 10x3/uL (1.5-8.4); %Basophils 0.7 % (0.0-2.0); %Eosinophils 6.5 % (0.0-6.0); %Lymphocytes 16.3 % (18.0-47.0); %Monocytes 8.6 % (0.0-10.0); %Neutrophils 67.7 % (40.0-75.0); Mean Corpuscular HGB CONC 32.3 g/dL (32.0-36.0); Mean Corpuscular Hemoglobin 30.5 pg (27.0-33.0); Mean Corpuscular Volume 94.4 fl (81.2-95.1); Mean Platelet Volume 10.3 fl (7.4-10.4); Platelet Count 179 10x3/uL (150-450); RBC Distribution Width 14.6 % (11.5-14.5); Red Blood Cell (RBC) Count 3.93 10x6/uL (4.32-5.72); White Blood Cell (WBC) Count 5.7 10x3/uL (3.5-10.5)
[2021-05-10 10:37] LABS: Anion Gap 23 mmol/L (10-20); BUN (Urea Nitrogen) 37 mg/dL (8.4-25.7); Calc. Creatinine Clearance 0 mL/min (70-130); Calcium 9.7 mg/dL (7.8-10.44); Carbon Dioxide 25 mmol/L (23-31); Chloride 97 mmol/L (98-107); Glucose 111 mg/dL (80-115); Potassium 4.8 mmol/L (3.5-5.1); Sodium 140 mmol/L (136-145)
[2021-05-11 00:02] LABS: SARS-CoV-2 PCR by NAA Not Detected (NotDetected)
[2021-07-13 00:37] LABS: SARS-CoV-2 PCR by NAA Not Detected (NotDetected)
== END 2021-07-12 16:29 | disposition home or self-care (01) ==
LOC: LABBT 16:28
PROVIDERS: ATTEND Surgery
DX: Z01.812 Encounter for preprocedural laboratory examination (principal); Z20.822 Contact with and (suspected) exposure to COVID-19
CPT/HCPCS: 80048; 85025; U0003; U0005

== ENCOUNTER → 2021-07-16 | Day surgery (SDC) | payer MEDICARE ==
[2021-07-15 14:14] VITALS: BMI 31.6
[~2021-07-16] MED LIST: Bupivacaine 0.25% HCL 30 ML VIAL ONE; Fentanyl 100 MCG/2 ML VIAL ONE; Heparin 5,000 UNITS/ML VIAL ONE; Ioversol 68 % 50 ML VIAL ONE; Lidocaine 1% w/Epinephrine 1:100K 20 ML VIAL ONE; Protamine Sulfate 50 MG/5 ML VIAL ONE; ceFAZolin 2 GM/DEX 5% 100 ML BAG ONE
[2021-07-16 11:33] LABS: #Eosinphils 0.4 thou/uL (0.0-0.7); #Monocytes 0.5 thou/uL (0.11-0.59); #Neutrophils 3.6 thou/uL (1.40-6.50); %Basophils 0.4 % (0.0-1.0); %Eosinophils 6.8 % (0.0-10.0); %Lymphocytes 18.9 % (21.0-51.0); %Monocytes 9.1 % (0.0-10.0); %Neutrophils 64.9 % (42.0-75.0); Hemoglobin 12.9 g/dL (14.0-18.0); Mean Corpuscular Volume 96.9 fL (78.0-98.0); Mean Platelet Volume 10.3 fL (7.4-10.4); Platelet Count 167 thou/uL (130-400); RBC Distribution Width 13.3 % (11.5-14.5); White Blood Cell (WBC) Count 5.5 thou/uL (4.8-10.8)
[2021-07-16 12:05] LABS: Anion Gap 22 mmol/L (10-20); BUN (Urea Nitrogen) 38 mg/dL (8.4-25.7); Calc. Creatinine Clearance 13 mL/min (70-130); Calcium 9.2 mg/dL (7.8-10.44); Carbon Dioxide 25 mmol/L (23-31); Chloride 99 mmol/L (98-107); Glucose 82 mg/dL (80-115); Potassium 6.3 mmol/L (3.5-5.1); Sodium 140 mmol/L (136-145)
[2021-07-16 14:35] LABS: HBSAg Index 0.25 S/CO (0-0.99); Hep B Surf Ag Non-Reactive S/CO (NonReactive)
== END ==
LOC: SDC 10:07
PROVIDERS: ATTEND Surgery
DX: T82.510A Breakdown (mechanical) of surgically created arteriovenous fistula, initial encounter (principal); N18.6 End stage renal disease; I25.2 Old myocardial infarction; I25.10 Atherosclerotic heart disease of native coronary artery without angina pectoris; E78.5 Hyperlipidemia, unspecified; Z53.8 Procedure and treatment not carried out for other reasons; Z86.73 Personal history of transient ischemic attack (TIA), and cerebral infarction without residual deficits; Z87.891 Personal history of nicotine dependence; Z79.02 Long term (current) use of antithrombotics/antiplatelets; Z79.82 Long term (current) use of aspirin; Z79.899 Other long term (current) drug therapy; Z88.8 Allergy status to other drugs, medicaments and biological substances; Z91.041 Radiographic dye allergy status; Z95.1 Presence of aortocoronary bypass graft; Z99.2 Dependence on renal dialysis; Y73.1 Therapeutic (nonsurgical) and rehabilitative gastroenterology and urology devices associated with adverse incidents
CPT/HCPCS: 80048; 85025; 87340; J1644; J2720; J3010; Q9967; S0020

== ENCOUNTER 2021-07-23 08:16 | Day surgery (SDC) | payer MEDICARE ==
[2021-07-22 12:17] VITALS: BMI 31.6
[2021-07-23 10:23] LABS: SARS-CoV-2 NAA Rapid Test Not Detected (NotDetected)
[2021-07-23] MEDS ORDERED: PROPOFOL 0 ML ONE (10:41)
[2021-07-23] MEDS ORDERED: PROPOFOL 60 ML ONE (10:42)
[2021-07-23] MEDS ORDERED: Fentanyl 100 MCG/2 ML VIAL ONE ×2 (10:50→12:09)
[2021-07-23 11:12] LABS: Anion Gap 19 mmol/L (10-20); BUN (Urea Nitrogen) 37 mg/dL (8.4-25.7); Calc. Creatinine Clearance 15 mL/min (70-130); Calcium 8.6 mg/dL (7.8-10.44); Carbon Dioxide 28 mmol/L (23-31); Chloride 96 mmol/L (98-107); Glucose 83 mg/dL (80-115); Potassium 5.8 mmol/L (3.5-5.1); Sodium 137 mmol/L (136-145)
[2021-07-23] MEDS ORDERED: Bupivacaine HCl 0.5%/Epinephrine 1:200,000/PF 30 ml Vial ONE (11:30)
[2021-07-23] MEDS ORDERED: Protamine Sulfate 50 MG/5 ML VIAL ONE (11:40)
[2021-07-23] MEDS ORDERED: Lidocaine 1% w/Epinephrine 1:100K 20 ML VIAL ONE (11:40)
[2021-07-23] MEDS ORDERED: Heparin 5,000 UNITS/ML VIAL ONE (11:40)
[2021-07-23] MEDS ORDERED: Bupivacaine 0.25% HCL 30 ML VIAL ONE (11:40)
[2021-07-23] MEDS ORDERED: Heparin 10,000 UNITS/ 10 ML VIAL ONE (11:52)
[2021-07-23] MEDS ORDERED: Phenylephrine 10 MG/ML VIAL ONE (12:01)
[2021-07-23] MEDS ORDERED: Ondansetron PF 4 MG/2 ML Vial ONE (12:13)
[2021-07-23] MEDS ORDERED: PROPOFOL 200 MG/20 ML VIAL ONE (12:13)
[2021-07-23] MEDS ORDERED: ePHEDrine 50 MG/ML VIAL ONE (12:13)
[2021-07-23] MEDS ORDERED: Glycopyrrolate 0.2 MG/ML 5 ML SYRINGE ONE ×2 (12:13→14:35)
[2021-07-23] MEDS ORDERED: Lidocaine 1% PF 5 ML VIAL ONE (12:13)
[2021-07-23] MEDS ORDERED: PHENYLEPHRINE-NS 100 MCG/ML 10 ML SYRINGE ONE (12:13)
[2021-07-23] MEDS ORDERED: Albuterol Sulfate HFA (OR ONLY) ONE ×2 (12:13→14:39)
[2021-07-23] MEDS ORDERED: Rocuronium Bromide 10 MG/ML (10ML VIAL) ONE (12:13)
== END 2021-07-23 17:10 | disposition home or self-care (01) ==
LOC: SDC 08:16
PROVIDERS: ATTEND Surgery
PROC: 05BY0ZZ Excision of Upper Vein, Open Approach (ICD-10-PCS; principal; 2021-07-23)
DX: T82.510A Breakdown (mechanical) of surgically created arteriovenous fistula, initial encounter (principal); N18.6 End stage renal disease; I25.2 Old myocardial infarction; M16.10 Unilateral primary osteoarthritis, unspecified hip; I25.10 Atherosclerotic heart disease of native coronary artery without angina pectoris; E78.5 Hyperlipidemia, unspecified; Z86.73 Personal history of transient ischemic attack (TIA), and cerebral infarction without residual deficits; Z87.891 Personal history of nicotine dependence; Z79.02 Long term (current) use of antithrombotics/antiplatelets; Z79.82 Long term (current) use of aspirin; Z79.899 Other long term (current) drug therapy; Z88.8 Allergy status to other drugs, medicaments and biological substances; Z91.041 Radiographic dye allergy status; Z95.1 Presence of aortocoronary bypass graft; Z95.5 Presence of coronary angioplasty implant and graft; Z20.822 Contact with and (suspected) exposure to COVID-19; Y81.1 Therapeutic (nonsurgical) and rehabilitative general- and plastic-surgery devices associated with adverse incidents
CPT/HCPCS: 37607; 80048; U0002; J0690; J1644; J2370; J2405; J2704; J2720; J3010; J3490; S0020

== ENCOUNTER 2021-08-12 12:04 | Inpatient (IN) | payer MEDICARE ==
[~2021-08-12 12:04] MED LIST changes: -Bupivacaine 0.25% HCL 30 ML VIAL ONE; -Fentanyl 100 MCG/2 ML VIAL ONE; +Heparin 10,000 UNITS/ 10 ML VIAL ONE; -Heparin 5,000 UNITS/ML VIAL ONE; -Ioversol 68 % 50 ML VIAL ONE; -Lidocaine 1% w/Epinephrine 1:100K 20 ML VIAL ONE; -Protamine Sulfate 50 MG/5 ML VIAL ONE; -ceFAZolin 2 GM/DEX 5% 100 ML BAG ONE
[2021-08-12 12:44] LABS: #Eosinphils 0.1 thou/uL (0.0-0.7); #Lymphocytes 0.6 thou/uL (1.20-3.40); #Monocytes 0.1 thou/uL (0.11-0.59); #Neutrophils 6.4 thou/uL (1.40-6.50); %Eosinophils 1.7 % (0.0-10.0); %Lymphocytes 7.7 % (21.0-51.0); %Monocytes 1.6 % (0.0-10.0); %Neutrophils 88.9 % (42.0-75.0); Hemoglobin 11.1 g/dL (14.0-18.0); Mean Corpuscular HGB CONC 33.4 g/dL (32.0-36.0); Mean Corpuscular Hemoglobin 33.1 pg (27.0-31.0); Mean Platelet Volume 7.7 fL (7.4-10.4); Platelet Count 142 thou/uL (130-400); RBC Distribution Width 12.5 % (11.5-14.5); Red Blood Cell (RBC) Count 3.35 mill/uL (4.70-6.10); White Blood Cell (WBC) Count 7.2 thou/uL (4.8-10.8)
[2021-08-12 13:10] LABS: ALT (SGPT) Less than 7 U/L (8-55); AST (SGOT) 8 U/L (5-34); Alkaline Phosphatase 60 U/L (40-110); BUN (Urea Nitrogen) 58 mg/dL (8.4-25.7); Bilirubin, Total 0.7 mg/dL (0.2-1.2); Calc. Creatinine Clearance 0 mL/min (70-130); Calcium 9.5 mg/dL (7.8-10.44); Carbon Dioxide 22 mmol/L (23-31); Chloride 99 mmol/L (98-107); Globulin 3.2 g/dL (2.4-3.5); Glucose 115 mg/dL (80-115); Potassium 5.5 mmol/L (3.5-5.1); Protein, Total 7.2 g/dL (5.8-8.1); Sodium 137 mmol/L (136-145)
[2021-08-12 13:27] LABS: CKMB 2.1 ng/mL (0-6.6)
[2021-08-12 13:39] LABS: Anion Gap 22 mmol/L (10-20)
[2021-08-12] MEDS ORDERED: Ondansetron PF 4 MG/2 ML Vial ONE (20:09)
[2021-08-12] MEDS ORDERED: Midazolam HCl 2 mg/2 ml Vial ONE (20:43)
[2021-08-12] MEDS ORDERED: Ondansetron PF 4 MG/2 ML Vial IVP PRN (21:45)
[2021-08-12] MEDS ORDERED: Ondansetron ODT 4 MG TAB SL PRN (21:45)
[2021-08-12 22:00] VITALS: BMI 31.3
[2021-08-12] MEDS: Acetaminophen 325 MG TAB PO PRN (22:35)
[2021-08-13 00:56] LABS: HBSAg Index 0.31 S/CO (0-0.99); Hep B Surf Ag Non-Reactive S/CO (NonReactive)
[2021-08-13] MEDS: Acetaminophen 325 MG TAB PO PRN ×3 (03:43→20:50)
[2021-08-13 03:50] LABS: SARS-CoV-2 NAA Rapid Test Not Detected (NotDetected)
[2021-08-13] MEDS ORDERED: Ondansetron PF 4 MG/2 ML Vial IVP PRN (06:37)
[2021-08-13 06:56] LABS: #Eosinphils 0.2 thou/uL (0.0-0.7); #Lymphocytes 0.5 thou/uL (1.20-3.40); #Monocytes 0.5 thou/uL (0.11-0.59); #Neutrophils 4.5 thou/uL (1.40-6.50); %Basophils 0.2 % (0.0-1.0); %Eosinophils 3.4 % (0.0-10.0); %Lymphocytes 8.7 % (21.0-51.0); %Monocytes 8.1 % (0.0-10.0); %Neutrophils 79.6 % (42.0-75.0); Hemoglobin 10.5 g/dL (14.0-18.0); Mean Corpuscular HGB CONC 33.4 g/dL (32.0-36.0); Mean Corpuscular Hemoglobin 33.3 pg (27.0-31.0); Mean Corpuscular Volume 99.9 fL (78.0-98.0); Mean Platelet Volume 7.4 fL (7.4-10.4); Platelet Count 129 thou/uL (130-400); RBC Distribution Width 12.6 % (11.5-14.5); Red Blood Cell (RBC) Count 3.15 mill/uL (4.70-6.10); White Blood Cell (WBC) Count 5.6 thou/uL (4.8-10.8)
[2021-08-13 07:18] LABS: Anion Gap 15 mmol/L (10-20); BUN (Urea Nitrogen) 31 mg/dL (8.4-25.7); Calc. Creatinine Clearance 16 mL/min (70-130); Calcium 9.4 mg/dL (7.8-10.44); Carbon Dioxide 28 mmol/L (23-31); Chloride 100 mmol/L (98-107); Glucose 95 mg/dL (80-115); Potassium 4.8 mmol/L (3.5-5.1); Sodium 138 mmol/L (136-145)
[2021-08-13 07:26] LABS: Troponin I 0.114 ng/mL (< 0.028)
[2021-08-13] MEDS: Heparin 5,000 UNITS/ML VIAL SC SCH ×3 (07:33→20:52)
[2021-08-13 09:45] LABS: Troponin I 0.113 ng/mL (< 0.028)
[2021-08-13] MEDS ORDERED: Fentanyl 100 MCG/2 ML VIAL ONE ×2 (12:46→13:17)
[2021-08-13] MEDS ORDERED: Famotidine/PF 20 mg/2ml Vial ONE (12:46)
[2021-08-13] MEDS ORDERED: Lidocaine 1% w/Epinephrine 1:100K 20 ML VIAL ONE (13:11)
[2021-08-13] MEDS ORDERED: Bupivacaine 0.25% HCL 30 ML VIAL ONE (13:11)
[2021-08-13] MEDS ORDERED: Bupivacaine PF 0.5% 30 ML VIAL ONE (13:11)
[2021-08-13] MEDS ORDERED: EPINEPHrine 1 MG/ML AMP ONE (13:11)
[2021-08-13] MEDS ORDERED: Dexmedetomidine 200 MCG/2 ML VIAL ONE (13:17)
[2021-08-13] MEDS ORDERED: Phenylephrine 10 MG/ML VIAL ONE (13:17)
[2021-08-13] MEDS ORDERED: ePHEDrine 50 MG/ML VIAL ONE (13:32)
[2021-08-13] MEDS ORDERED: Lidocaine 1% PF 5 ML VIAL ONE (13:32)
[2021-08-13] MEDS ORDERED: PROPOFOL 200 MG/20 ML VIAL ONE (13:32)
[2021-08-13] MEDS ORDERED: PHENYLEPHRINE-NS 100 MCG/ML 10 ML SYRINGE ONE (13:32)
[2021-08-13] MEDS ORDERED: Rocuronium Bromide 10 MG/ML (10ML VIAL) ONE (13:32)
[2021-08-13] MEDS ORDERED: Glycopyrrolate 0.2 MG/ML 5 ML SYRINGE ONE (13:32)
[2021-08-13] MEDS ORDERED: Ondansetron PF 4 MG/2 ML Vial ONE (13:32)
[2021-08-13] MEDS ORDERED: SUGAMMADEX SODIUM 200 MG/2 ML VIAL ONE (14:19)
[2021-08-13] MEDS: Metoprolol Tartrate 25 MG TAB PO SCH (20:49)
[2021-08-13] MEDS: Amiodarone 200 MG TAB PO SCH (20:49)
[2021-08-13] MEDS: Rosuvastatin 10 MG TAB PO SCH (20:50)
[2021-08-13] MEDS: rOPINIRole HCl 0.5 MG TAB PO SCH (20:50)
[2021-08-13] MEDS ORDERED: traMADol HCl 50 MG TAB PO PRN (22:50)
[2021-08-14 04:38] LABS: #Eosinphils 0.2 thou/uL (0.0-0.7); #Lymphocytes 0.6 thou/uL (1.20-3.40); #Monocytes 0.5 thou/uL (0.11-0.59); #Neutrophils 3.3 thou/uL (1.40-6.50); %Basophils 0.4 % (0.0-1.0); %Eosinophils 4.3 % (0.0-10.0); %Lymphocytes 12.6 % (21.0-51.0); %Monocytes 11.3 % (0.0-10.0); %Neutrophils 71.4 % (42.0-75.0); Hemoglobin 9.6 g/dL (14.0-18.0); Mean Platelet Volume 7.6 fL (7.4-10.4); Platelet Count 116 thou/uL (130-400); RBC Distribution Width 12.6 % (11.5-14.5); Red Blood Cell (RBC) Count 2.91 mill/uL (4.70-6.10); White Blood Cell (WBC) Count 4.7 thou/uL (4.8-10.8)
[2021-08-14 04:49] LABS: Anion Gap 18 mmol/L (10-20); BUN (Urea Nitrogen) 42 mg/dL (8.4-25.7); Calc. Creatinine Clearance 13 mL/min (70-130); Calcium 8.9 mg/dL (7.8-10.44); Carbon Dioxide 24 mmol/L (23-31); Chloride 97 mmol/L (98-107); Glucose 97 mg/dL (80-115); Potassium 5.5 mmol/L (3.5-5.1); Sodium 133 mmol/L (136-145)
[2021-08-14] MEDS ORDERED: Heparin 10,000 UNITS/ 10 ML VIAL ONE (09:30)
[2021-08-14] MEDS ORDERED: Bisacodyl 10 MG SUPP PR PRN (10:06)
[2021-08-14] MEDS: Acetaminophen 325 MG TAB PO PRN ×2 (11:19→20:42)
[2021-08-14] MEDS: Metoprolol Tartrate 25 MG TAB PO SCH ×2 (14:07→20:42)
[2021-08-14] MEDS: Heparin 5,000 UNITS/ML VIAL SC SCH ×3 (14:07→20:43)
[2021-08-14] MEDS: Amiodarone 200 MG TAB PO SCH ×2 (14:07→20:42)
[2021-08-14] MEDS: rOPINIRole HCl 0.5 MG TAB PO SCH (20:42)
[2021-08-14] MEDS: Rosuvastatin 10 MG TAB PO SCH (20:42)
[2021-08-15 04:51] LABS: #Eosinphils 0.2 thou/uL (0.0-0.7); #Lymphocytes 0.6 thou/uL (1.20-3.40); #Monocytes 0.5 thou/uL (0.11-0.59); #Neutrophils 2.8 thou/uL (1.40-6.50); %Basophils 0.1 % (0.0-1.0); %Eosinophils 5.3 % (0.0-10.0); %Lymphocytes 15.3 % (21.0-51.0); %Monocytes 11.5 % (0.0-10.0); %Neutrophils 67.7 % (42.0-75.0); Hemoglobin 9.6 g/dL (14.0-18.0); Mean Corpuscular HGB CONC 33.6 g/dL (32.0-36.0); Mean Corpuscular Hemoglobin 33.5 pg (27.0-31.0); Mean Corpuscular Volume 99.7 fL (78.0-98.0); Mean Platelet Volume 7.7 fL (7.4-10.4); Platelet Count 118 thou/uL (130-400); RBC Distribution Width 12.4 % (11.5-14.5); Red Blood Cell (RBC) Count 2.86 mill/uL (4.70-6.10); White Blood Cell (WBC) Count 4.1 thou/uL (4.8-10.8)
[2021-08-15 05:11] LABS: Anion Gap 17 mmol/L (10-20); BUN (Urea Nitrogen) 40 mg/dL (8.4-25.7); Calc. Creatinine Clearance 13 mL/min (70-130); Calcium 8.8 mg/dL (7.8-10.44); Carbon Dioxide 24 mmol/L (23-31); Chloride 97 mmol/L (98-107); Glucose 117 mg/dL (80-115); Sodium 133 mmol/L (136-145)
[2021-08-15] MEDS ORDERED: Heparin 10,000 UNITS/ 10 ML VIAL ONE (08:58)
[2021-08-15] MEDS: Amiodarone 200 MG TAB PO SCH ×2 (10:53→20:43)
[2021-08-15] MEDS: Heparin 5,000 UNITS/ML VIAL SC SCH ×3 (10:53→20:43)
[2021-08-15] MEDS: Metoprolol Tartrate 25 MG TAB PO SCH ×2 (10:53→20:43)
[2021-08-15] MEDS ORDERED: rOPINIRole HCl 0.5 MG TAB PO SCH (15:00)
[2021-08-15] MEDS ORDERED: ceFAZolin Sodium/D5W 2 GM in Premix Bag 1 BAG IVPB SCH (17:00)
[2021-08-15] MEDS: Rosuvastatin 10 MG TAB PO SCH (20:43)
[2021-08-16 05:04] LABS: #Eosinphils 0.2 thou/uL (0.0-0.7); #Lymphocytes 0.7 thou/uL (1.20-3.40); #Monocytes 0.4 thou/uL (0.11-0.59); #Neutrophils 2.6 thou/uL (1.40-6.50); %Basophils 0.4 % (0.0-1.0); %Eosinophils 5.7 % (0.0-10.0); %Lymphocytes 18.4 % (21.0-51.0); %Monocytes 9.5 % (0.0-10.0); Hemoglobin 10.4 g/dL (14.0-18.0); Mean Corpuscular Hemoglobin 33.2 pg (27.0-31.0); Mean Corpuscular Volume 97.6 fL (78.0-98.0); Mean Platelet Volume 7.8 fL (7.4-10.4); Platelet Count 148 thou/uL (130-400); RBC Distribution Width 12.2 % (11.5-14.5); Red Blood Cell (RBC) Count 3.12 mill/uL (4.70-6.10); White Blood Cell (WBC) Count 3.9 thou/uL (4.8-10.8)
[2021-08-16 05:23] LABS: Anion Gap 17 mmol/L (10-20); BUN (Urea Nitrogen) 37 mg/dL (8.4-25.7); Calc. Creatinine Clearance 13 mL/min (70-130); Calcium 9.3 mg/dL (7.8-10.44); Carbon Dioxide 25 mmol/L (23-31); Chloride 100 mmol/L (98-107); Glucose 112 mg/dL (80-115); Sodium 137 mmol/L (136-145)
[2021-08-16] MEDS ORDERED: ceFAZolin 2 GM/DEX 5% 100 ML BAG ONE (09:04)
[2021-08-16] MEDS ORDERED: Heparin 10,000 UNITS/ 10 ML VIAL ONE (09:15)
[2021-08-16] MEDS ORDERED: Sodium Chloride 0.9% 30 ML ONE (09:15)
[2021-08-16] MEDS ORDERED: Lidocaine 1% w/Epinephrine 1:100K 20 ML VIAL ONE (09:15)
[2021-08-16] MEDS ORDERED: Bupivacaine 0.25% HCL 30 ML VIAL ONE (09:15)
[2021-08-16] MEDS ORDERED: Phenylephrine 10 MG/ML VIAL ONE ×2 (09:35)
[2021-08-16] MEDS ORDERED: Fentanyl 100 MCG/2 ML VIAL ONE ×2 (09:35→12:06)
[2021-08-16] MEDS ORDERED: Dexamethasone 20 MG/5 ML VIAL ONE (09:44)
[2021-08-16] MEDS ORDERED: Lidocaine 1% PF 5 ML VIAL ONE (09:44)
[2021-08-16] MEDS ORDERED: Ondansetron PF 4 MG/2 ML Vial ONE (09:44)
[2021-08-16] MEDS ORDERED: PROPOFOL 200 MG/20 ML VIAL ONE (09:44)
[2021-08-16] MEDS: Heparin 5,000 UNITS/ML VIAL SC SCH ×3 (10:17→20:34)
[2021-08-16] MEDS: Amiodarone 200 MG TAB PO SCH ×2 (10:17→20:31)
[2021-08-16] MEDS: Metoprolol Tartrate 25 MG TAB PO SCH ×2 (10:18→20:31)
[2021-08-16] MEDS ORDERED: Promethazine HCl 25 MG/ML VIAL IVPB PRN (12:02)
[2021-08-16] MEDS ORDERED: Promethazine HCl 25 MG/ML VIAL IM PRN (12:02)
[2021-08-16] MEDS ORDERED: Ondansetron HCl/PF 4 MG/2 ML Vial IVP PRN (12:02)
[2021-08-16] MEDS ORDERED: Acetaminophen 325 MG TAB ONE ×2 (12:17)
[2021-08-16] MEDS: Acetaminophen 325 MG TAB PO PRN (16:10)
[2021-08-16] MEDS ORDERED: HYDROcodone/Acetaminophen 7.5/325 mg Tablet PO PRN (17:15)
[2021-08-16] MEDS: Rosuvastatin 10 MG TAB PO SCH (20:31)
[2021-08-16] MEDS ORDERED: rOPINIRole HCl 0.5 MG TAB PO SCH (21:00)
[2021-08-17] MEDS: HYDROcodone/Acetaminophen 7.5/325 mg Tablet PO PRN ×2 (00:36→12:25)
[2021-08-17 04:50] LABS: #Lymphocytes 0.6 thou/uL (1.20-3.40); #Monocytes 0.5 thou/uL (0.11-0.59); #Neutrophils 5.8 thou/uL (1.40-6.50); %Basophils 0.1 % (0.0-1.0); %Eosinophils 0.1 % (0.0-10.0); %Lymphocytes 9.2 % (21.0-51.0); %Monocytes 6.6 % (0.0-10.0); Hemoglobin 10.8 g/dL (14.0-18.0); Mean Corpuscular HGB CONC 34.2 g/dL (32.0-36.0); Mean Corpuscular Hemoglobin 33.3 pg (27.0-31.0); Mean Corpuscular Volume 97.5 fL (78.0-98.0); Mean Platelet Volume 7.8 fL (7.4-10.4); Platelet Count 179 thou/uL (130-400); RBC Distribution Width 12.3 % (11.5-14.5); Red Blood Cell (RBC) Count 3.23 mill/uL (4.70-6.10); White Blood Cell (WBC) Count 6.9 thou/uL (4.8-10.8)
[2021-08-17 05:10] LABS: Anion Gap 19 mmol/L (10-20); BUN (Urea Nitrogen) 50 mg/dL (8.4-25.7); Calc. Creatinine Clearance 11 mL/min (70-130); Calcium 9.3 mg/dL (7.8-10.44); Carbon Dioxide 23 mmol/L (23-31); Chloride 99 mmol/L (98-107); Glucose 128 mg/dL (80-115); Sodium 135 mmol/L (136-145)
[2021-08-17] MEDS ORDERED: Sodium Chloride 0.65% Nasal 44 ML BOT EA NARE PRN (07:18)
[2021-08-17] MEDS ORDERED: Loratadine 10 MG TAB PO PRN (07:18)
[2021-08-17] MEDS ORDERED: hydrALAZINE 20 MG/ML VIAL SLOW IVP PRN (07:18)
[2021-08-17] MEDS ORDERED: Cepastat Lozenges 1 LOZ PO PRN (07:18)
[2021-08-17] MEDS ORDERED: GUAIFENESIN SF SOLN 200 MG/10 ML UDCUP PO PRN (07:18)
[2021-08-17] MEDS ORDERED: Calcium Carbonate 500 MG ChewTAB PO PRN (07:18)
[2021-08-17] MEDS ORDERED: Senokot S 8.6-50 MG TAB PO PRN (07:18)
[2021-08-17] MEDS ORDERED: Zolpidem Tartrate 5 MG TAB PO PRN (07:18)
[2021-08-17] MEDS ORDERED: Loperamide HCl 2 MG CAP PO PRN (07:18)
[2021-08-17] MEDS ORDERED: Heparin 10,000 UNITS/ 10 ML VIAL ONE (12:04)
[2021-08-17] MEDS: Heparin 5,000 UNITS/ML VIAL SC SCH ×2 (12:23→15:12)
[2021-08-17] MEDS: Amiodarone 200 MG TAB PO SCH (12:24)
[2021-08-17] MEDS: Metoprolol Tartrate 25 MG TAB PO SCH (12:24)
[2021-08-17 12:41] VITALS: BP 148/67; TEMP 98.8
[2021-08-17 14:29] LABS: Anion Gap 17 mmol/L (10-20); BUN (Urea Nitrogen) 22 mg/dL (8.4-25.7); Calc. Creatinine Clearance 20 mL/min (70-130); Calcium 9.6 mg/dL (7.8-10.44); Carbon Dioxide 24 mmol/L (23-31); Chloride 100 mmol/L (98-107); Glucose 125 mg/dL (80-115); Potassium 4.1 mmol/L (3.5-5.1); Sodium 137 mmol/L (136-145)
== END 2021-08-17 16:00 | disposition home or self-care (01) | DRG 907 ==
LOC: ERS 12:04 → ERHOLD 17:35 → 2NO 21:38
PROVIDERS: ADMIT Internal Medicine; ATTEND Internal Medicine
PROC: 5A1D70Z Performance of Urinary Filtration, Intermittent, Less than 6 Hours Per Day (ICD-10-PCS; 2021-08-12)
PROC: 06HY33Z Insertion of Infusion Device into Lower Vein, Percutaneous Approach (ICD-10-PCS; 2021-08-12)
PROC: 0JCD0ZZ Extirpation of Matter from Right Upper Arm Subcutaneous Tissue and Fascia, Open Approach (ICD-10-PCS; principal; 2021-08-13)
PROC: 0JH60XZ Insertion of Tunneled Vascular Access Device into Chest Subcutaneous Tissue and Fascia, Open Approach (ICD-10-PCS; 2021-08-16)
PROC: 02HV33Z Insertion of Infusion Device into Superior Vena Cava, Percutaneous Approach (ICD-10-PCS; 2021-08-16)
PROC: B5181ZA Fluoroscopy of Superior Vena Cava using Low Osmolar Contrast, Guidance (ICD-10-PCS; 2021-08-16)
PROC: B548ZZA Ultrasonography of Superior Vena Cava, Guidance (ICD-10-PCS; 2021-08-16)
PROC: 0J9D00Z Drainage of Right Upper Arm Subcutaneous Tissue and Fascia with Drainage Device, Open Approach (ICD-10-PCS; 2021-08-16)
DX: L76.32 Postprocedural hematoma of skin and subcutaneous tissue following other procedure (principal); N18.6 End stage renal disease; A41.9 Sepsis, unspecified organism; I12.0 Hypertensive chronic kidney disease with stage 5 chronic kidney disease or end stage renal disease; N25.81 Secondary hyperparathyroidism of renal origin; Q61.3 Polycystic kidney, unspecified; Z20.822 Contact with and (suspected) exposure to COVID-19; L76.34 Postprocedural seroma of skin and subcutaneous tissue following other procedure; E87.5 Hyperkalemia; G25.81 Restless legs syndrome; I25.10 Atherosclerotic heart disease of native coronary artery without angina pectoris; E78.5 Hyperlipidemia, unspecified; I73.9 Peripheral vascular disease, unspecified; F17.210 Nicotine dependence, cigarettes, uncomplicated; D63.1 Anemia in chronic kidney disease; R77.8 Other specified abnormalities of plasma proteins; K59.01 Slow transit constipation; Y83.8 Other surgical procedures as the cause of abnormal reaction of the patient, or of later complication, without mention of misadventure at the time of the procedure; Z83.49 Family history of other endocrine, nutritional and metabolic diseases; Z99.2 Dependence on renal dialysis; Z79.899 Other long term (current) drug therapy; Z88.8 Allergy status to other drugs, medicaments and biological substances; Z91.041 Radiographic dye allergy status; Z79.02 Long term (current) use of antithrombotics/antiplatelets; Z95.1 Presence of aortocoronary bypass graft; Z84.1 Family history of disorders of kidney and ureter
CPT/HCPCS: 36415; 36416; 36556; 71045; 80048; 80053; 82553; 83880; 84484; 85025; 87340; 93005; 93931; 96374; 96375; C1713; C1752; J0171; J1100; J1642; J1644; J2250; J2370; J2405; J2704; J3010; J3490; J7620; S0020; S0028; U0002; U0003; U0005

== ENCOUNTER 2021-09-05 07:04 | Day surgery (SDC) | payer MEDICARE, OTHER ==
[2021-09-03 14:01] VITALS: BMI 32.1
[2021-09-05 07:52] VITALS: BP 136/75
[2021-09-05] MEDS ORDERED: Sodium Bicarbonate 2.5 MEQ/5 ML VIAL ONE (08:24)
[2021-09-05] MEDS ORDERED: Lidocaine 1% PF 5 ML VIAL ONE (08:24)
[2021-09-05] MEDS ORDERED: Sodium Chloride 0.9% 0 ML ONE (08:24)
== END 2021-09-05 08:46 | disposition home or self-care (01) ==
LOC: SPEC 07:04
PROVIDERS: ATTEND Surgery
DX: N18.6 End stage renal disease (principal); J00 Acute nasopharyngitis [common cold]; Z53.8 Procedure and treatment not carried out for other reasons; Z79.02 Long term (current) use of antithrombotics/antiplatelets; Z79.899 Other long term (current) drug therapy; Z88.8 Allergy status to other drugs, medicaments and biological substances

== ENCOUNTER 2021-10-03 07:22 | Day surgery (SDC) | payer MEDICARE ==
[2021-10-02 16:09] VITALS: BMI 32.1
== END 2021-10-03 10:44 | disposition home or self-care (01) ==
LOC: SPEC 07:22
PROVIDERS: ATTEND Surgery
PROC: B51W1ZZ Fluoroscopy of Dialysis Shunt/Fistula using Low Osmolar Contrast (ICD-10-PCS; principal; 2021-10-03)
DX: T82.898A Other specified complication of vascular prosthetic devices, implants and grafts, initial encounter (principal); N18.6 End stage renal disease; Z88.8 Allergy status to other drugs, medicaments and biological substances
CPT/HCPCS: 36901

== ENCOUNTER 2022-10-08 14:26 | Emergency (ER) | payer MEDICARE, OTHER ==
[2022-10-08] MEDS ORDERED: Fentanyl 100 MCG/2 ML VIAL ONE (15:18)
== END 2022-10-08 16:10 | disposition home or self-care (01) ==
LOC: ERS 14:26
DX: M54.12 Radiculopathy, cervical region (principal); E78.00 Pure hypercholesterolemia, unspecified; I10 Essential (primary) hypertension; F17.210 Nicotine dependence, cigarettes, uncomplicated; Z99.2 Dependence on renal dialysis; Z79.899 Other long term (current) drug therapy
CPT/HCPCS: 96372; 99283; J3010

== ENCOUNTER 2023-04-22 23:26 | Emergency (ER) | payer MEDICARE, OTHER ==
[2023-04-23] MEDS ORDERED: Acetaminophen 500 MG TAB ONE (00:23)
== END 2023-04-23 02:19 | disposition home or self-care (01) ==
LOC: ERS 23:26
DX: S29.001A Unspecified injury of muscle and tendon of front wall of thorax, initial encounter (principal); E78.5 Hyperlipidemia, unspecified; I25.10 Atherosclerotic heart disease of native coronary artery without angina pectoris; I10 Essential (primary) hypertension; Z99.2 Dependence on renal dialysis; F17.210 Nicotine dependence, cigarettes, uncomplicated; W18.30XA Fall on same level, unspecified, initial encounter
CPT/HCPCS: 71046

== ENCOUNTER 2023-05-04 16:33 | Inpatient (IN) | payer MEDICARE, OTHER ==
[2023-05-04 17:52] LABS: #Basophils 0.1 thou/uL (0.0-0.2); #Eosinphils 0.1 thou/uL (0.0-0.7); #Monocytes 0.5 thou/uL (0.11-0.59); #Neutrophils 3.5 thou/uL (1.40-6.50); %Basophils 1.3 % (0.0-1.0); %Eosinophils 2.7 % (0.0-10.0); %Lymphocytes 12.5 % (21.0-51.0); %Monocytes 9.9 % (0.0-10.0); %Neutrophils 73.4 % (42.0-75.0); Hemoglobin 10.1 g/dL (14.0-18.0); Mean Corpuscular HGB CONC 30.6 g/dL (32.0-36.0); Mean Corpuscular Hemoglobin 28.3 pg (27.0-31.0); Mean Corpuscular Volume 92.4 fl (78.0-98.0); Mean Platelet Volume 9.9 fL (7.4-10.4); Platelet Count 162 10x3/uL (130-400); RBC Distribution Width 17.4 % (11.5-14.5); Red Blood Cell (RBC) Count 3.57 mill/uL (4.70-6.10); White Blood Cell (WBC) Count 4.7 10x3/uL (4.8-10.8)
[2023-05-04 18:09] LABS: INR-International Normal Ratio 1.2; Prothrombin Time 16.1 sec (12.0-14.7)
[2023-05-04 18:10] LABS: ALT (SGPT) Less than 7 U/L (8-55); AST (SGOT) 10 U/L (5-34); Albumin 3.5 g/dL (3.4-4.8); Alkaline Phosphatase 87 U/L (40-110); Anion Gap 13 mmol/L (10-20); BUN (Urea Nitrogen) 16 mg/dL (8.4-25.7); Bilirubin, Total 0.5 mg/dL (0.2-1.2); Calc. Creatinine Clearance 0 mL/min (70-130); Calcium 9.9 mg/dL (7.8-10.44); Carbon Dioxide 32 mmol/L (23-31); Chloride 95 mmol/L (98-107); Estimated GFR 17; Globulin 3.8 g/dL (2.4-3.5); Glucose 86 mg/dL (80-115); PTT 42.2 sec (22.9-36.1); Potassium 3.4 mmol/L (3.5-5.1); Protein, Total 7.3 g/dL (5.8-8.1); Sodium 137 mmol/L (136-145)
[2023-05-04 18:14] LABS: Troponin I 0.044 ng/mL (< 0.028)
[2023-05-04] MEDS ORDERED: Piperacillin/Tazobactam 3.375 GM VIAL ONE (19:35)
[2023-05-04] MEDS ORDERED: fentaNYL 50 mcg/mL 1 mL Vial ONE (19:35)
[2023-05-04] MEDS ORDERED: Acetaminophen 325 MG TAB PO PRN (20:09)
[2023-05-04] MEDS ORDERED: Vancomycin 1 GM/200 ML (FROZEN) BAG ONE (20:23)
[2023-05-04] MEDS: Heparin 5,000 UNITS/ML VIAL SC SCH (22:38)
[2023-05-04] MEDS ORDERED: Vancomycin 1 GM in Premix Bag 1 BAG IVPB SCH (22:45)
[2023-05-04] MEDS: Potassium Chloride 20 MEQ TAB PO SCH ×2 (22:50→23:24)
[2023-05-04] MEDS: Famotidine 20 MG TAB PO SCH (22:50)
[2023-05-04] MEDS ORDERED: Vancomycin Dialysis Sliding Scale (Wt > 99) FS SCH (23:00)
[2023-05-04] MEDS ORDERED: Cefepime 1 GM in Sodium Chloride 0.9% 100 ML IVPB SCH (23:00)
[2023-05-04] MEDS ORDERED: Methyl Salicylate/Menthol 85 GM TUBE TOP PRN (23:09)
[2023-05-04] MEDS ORDERED: Lidocaine 4% Patch TD SCH (23:15)
[2023-05-04] MEDS: Morphine 2 MG/ML VIAL SLOW IVP PRN (23:25)
[2023-05-05 04:47] LABS: #Basophils 0.1 thou/uL (0.0-0.2); #Eosinphils 0.1 thou/uL (0.0-0.7); #Monocytes 0.6 thou/uL (0.11-0.59); #Neutrophils 3.6 thou/uL (1.40-6.50); %Basophils 1.4 % (0.0-1.0); %Eosinophils 2.6 % (0.0-10.0); %Lymphocytes 10.6 % (21.0-51.0); %Monocytes 11.8 % (0.0-10.0); %Neutrophils 73.4 % (42.0-75.0); Hematocrit 35.1 % (42.0-52.0); Hemoglobin 10.5 g/dL (14.0-18.0); Mean Corpuscular HGB CONC 29.9 g/dL (32.0-36.0); Mean Corpuscular Hemoglobin 28.4 pg (27.0-31.0); Mean Corpuscular Volume 94.9 fl (78.0-98.0); Mean Platelet Volume 10.5 fL (7.4-10.4); Platelet Count 157 10x3/uL (130-400); RBC Distribution Width 17.6 % (11.5-14.5); White Blood Cell (WBC) Count 4.9 10x3/uL (4.8-10.8)
[2023-05-05 05:12] LABS: Anion Gap 18 mmol/L (10-20); BUN (Urea Nitrogen) 21 mg/dL (8.4-25.7); Calc. Creatinine Clearance 25 mL/min (70-130); Calcium 10.1 mg/dL (7.8-10.44); Carbon Dioxide 27 mmol/L (23-31); Chloride 93 mmol/L (98-107); Estimated GFR 15; Glucose 87 mg/dL (80-115); Magnesium 1.9 mg/dL (1.6-2.6); Potassium 3.9 mmol/L (3.5-5.1); Sodium 134 mmol/L (136-145)
[2023-05-05] MEDS: Morphine 2 MG/ML VIAL SLOW IVP PRN (05:22)
[2023-05-05] MEDS: Heparin 5,000 UNITS/ML VIAL SC SCH ×3 (10:35→20:37)
[2023-05-05] MEDS ORDERED: Transdermal Patch Removal TOP SCH (11:00)
[2023-05-05] MEDS ORDERED: Ipratropium/Albuterol 3 ML NEB ONE (12:01)
[2023-05-05] MEDS ORDERED: fentaNYL 50 mcg/mL 1 mL Vial ONE ×3 (12:22→14:35)
[2023-05-05] MEDS ORDERED: SUGAMMADEX SODIUM 200 MG/2 ML VIAL ONE (12:22)
[2023-05-05] MEDS ORDERED: Lidocaine 2% 6 ML (Jelly) SYR ONE (12:23)
[2023-05-05] MEDS ORDERED: Bupivacaine PF 0.5% 30 ML VIAL ONE (12:28)
[2023-05-05] MEDS ORDERED: EPINEPHrine 1 MG/ML AMP ONE (12:28)
[2023-05-05] MEDS ORDERED: Lidocaine 1% PF 5 ML VIAL ONE (12:30)
[2023-05-05] MEDS ORDERED: Ondansetron PF 4 MG/2 ML Vial ONE (12:30)
[2023-05-05] MEDS ORDERED: PHENYLEPHRINE-NS 100 MCG/ML 10 ML SYRINGE ONE (12:30)
[2023-05-05] MEDS ORDERED: PROPOFOL 200 MG/20 ML VIAL ONE (12:30)
[2023-05-05] MEDS: HYDROcodone/Acetaminophen 5/325 mg Tablet PO PRN ×2 (15:36→20:36)
[2023-05-05] MEDS: Famotidine 20 MG TAB PO SCH (20:37)
[2023-05-05] MEDS ORDERED: Cefepime 0.5 GM in Sodium Chloride 0.9% 100 ML IVPB SCH (21:00)
[2023-05-06] MEDS: HYDROcodone/Acetaminophen 5/325 mg Tablet PO PRN ×3 (06:01→16:28)
[2023-05-06 07:36] LABS: Vancomycin, Random 16.1 ug/mL (See Comment)
[2023-05-06] MEDS: Heparin 5,000 UNITS/ML VIAL SC SCH ×3 (10:17→19:55)
[2023-05-06] MEDS: Morphine 2 MG/ML VIAL SLOW IVP PRN (13:31)
[2023-05-06] MEDS ORDERED: VANCOMYCIN 1.25 GM/250 ML BAG 1.25 GM in Premix Bag 1 BAG IVPB SCH (17:00)
[2023-05-06] MEDS: Famotidine 20 MG TAB PO SCH (19:54)
[2023-05-07] MEDS: HYDROcodone/Acetaminophen 5/325 mg Tablet PO PRN ×3 (06:51→20:20)
[2023-05-07] MEDS: Clopidogrel Bisulfate 75 MG TAB PO SCH (08:21)
[2023-05-07] MEDS: Aspirin Chewable 81 MG TAB PO SCH (08:21)
[2023-05-07] MEDS: Heparin 5,000 UNITS/ML VIAL SC SCH ×3 (08:21→20:21)
[2023-05-07] MEDS: Morphine 2 MG/ML VIAL SLOW IVP PRN (10:06)
[2023-05-07] MEDS ORDERED: Rifampin 300 MG CAP PO SCH (14:00)
[2023-05-07] MEDS: Rifampin 300 MG CAP PO SCH (20:20)
[2023-05-07] MEDS: Famotidine 20 MG TAB PO SCH (20:21)
[2023-05-08] MEDS: HYDROcodone/Acetaminophen 5/325 mg Tablet PO PRN ×3 (06:39→20:46)
[2023-05-08 10:35] LABS: Hematocrit 33.5 % (42.0-52.0); Platelet Count 109 10x3/uL (130-400); RBC Distribution Width 17.7 % (11.5-14.5)
[2023-05-08 10:36] LABS: Hemoglobin 10.3 g/dL (14.0-18.0); Mean Corpuscular HGB CONC 30.7 g/dL (32.0-36.0); Mean Corpuscular Hemoglobin 28.5 pg (27.0-31.0); Mean Corpuscular Volume 92.8 fl (78.0-98.0); Mean Platelet Volume 11.8 fL (7.4-10.4); Red Blood Cell (RBC) Count 3.61 mill/uL (4.70-6.10); White Blood Cell (WBC) Count 5.8 10x3/uL (4.8-10.8)
[2023-05-08 10:54] LABS: Vancomycin, Random 13.4 ug/mL (See Comment)
[2023-05-08 10:55] LABS: Anion Gap 15 mmol/L (10-20); BUN (Urea Nitrogen) 18 mg/dL (8.4-25.7); Calc. Creatinine Clearance 37 mL/min (70-130); Carbon Dioxide 27 mmol/L (23-31); Chloride 95 mmol/L (98-107); Estimated GFR 22; Potassium 3.5 mmol/L (3.5-5.1); Sodium 133 mmol/L (136-145)
[2023-05-08 10:56] LABS: Calcium 9.2 mg/dL (7.8-10.44); Glucose 96 mg/dL (80-115)
[2023-05-08] MEDS ORDERED: Heparin 10,000 UNITS/ 10 ML VIAL ONE (12:34)
[2023-05-08] MEDS: Aspirin Chewable 81 MG TAB PO SCH (13:31)
[2023-05-08] MEDS: Clopidogrel Bisulfate 75 MG TAB PO SCH (13:31)
[2023-05-08] MEDS: Rifampin 300 MG CAP PO SCH ×2 (13:31→20:44)
[2023-05-08] MEDS: Heparin 5,000 UNITS/ML VIAL SC SCH ×3 (13:33→20:44)
[2023-05-08] MEDS ORDERED: Vancomycin 1.5 GRAM/300 ML BAG 1.5 GM in Premix Bag 1 BAG IVPB SCH (17:00)
[2023-05-08] MEDS ORDERED: Ipratropium/Albuterol 3 ML NEB NEB SCH (18:30)
[2023-05-08] MEDS: Famotidine 20 MG TAB PO SCH (20:44)
[2023-05-09] MEDS: HYDROcodone/Acetaminophen 5/325 mg Tablet PO PRN ×5 (05:20→21:28)
[2023-05-09] MEDS: Clopidogrel Bisulfate 75 MG TAB PO SCH (08:53)
[2023-05-09] MEDS: Morphine 2 MG/ML VIAL SLOW IVP PRN (08:54)
[2023-05-09] MEDS: Aspirin Chewable 81 MG TAB PO SCH (08:54)
[2023-05-09 10:16] LABS: #Basophils 0.1 thou/uL (0.0-0.2); #Eosinphils 0.1 thou/uL (0.0-0.7); #Monocytes 0.5 thou/uL (0.11-0.59); %Basophils 1.2 % (0.0-1.0); %Eosinophils 1.9 % (0.0-10.0); %Lymphocytes 16.8 % (21.0-51.0); %Monocytes 9.4 % (0.0-10.0); %Neutrophils 70.4 % (42.0-75.0); Hematocrit 35.5 % (42.0-52.0); Hemoglobin 10.7 g/dL (14.0-18.0); Mean Corpuscular HGB CONC 30.1 g/dL (32.0-36.0); Mean Corpuscular Hemoglobin 28.5 pg (27.0-31.0); Mean Corpuscular Volume 94.4 fl (78.0-98.0); Mean Platelet Volume 12.2 fL (7.4-10.4); Platelet Count 101 10x3/uL (130-400); RBC Distribution Width 17.9 % (11.5-14.5); Red Blood Cell (RBC) Count 3.76 mill/uL (4.70-6.10); White Blood Cell (WBC) Count 5.7 10x3/uL (4.8-10.8)
[2023-05-09 10:44] LABS: Anion Gap 18 mmol/L (10-20); BUN (Urea Nitrogen) 34 mg/dL (8.4-25.7); Calc. Creatinine Clearance 22 mL/min (70-130); Calcium 9.8 mg/dL (7.8-10.44); Carbon Dioxide 29 mmol/L (23-31); Chloride 91 mmol/L (98-107); Estimated GFR 12; Glucose 91 mg/dL (80-115); Potassium 4.1 mmol/L (3.5-5.1); Sodium 134 mmol/L (136-145)
[2023-05-09] MEDS: Rifampin 300 MG CAP PO SCH ×2 (11:17→21:13)
[2023-05-09] MEDS: Heparin 5,000 UNITS/ML VIAL SC SCH ×3 (11:18→21:09)
[2023-05-10 04:30] LABS: #Basophils 0.1 thou/uL (0.0-0.2); #Eosinphils 0.2 thou/uL (0.0-0.7); #Monocytes 0.6 thou/uL (0.11-0.59); #Neutrophils 4.5 thou/uL (1.40-6.50); %Basophils 1.1 % (0.0-1.0); %Eosinophils 2.5 % (0.0-10.0); %Lymphocytes 15.4 % (21.0-51.0); %Neutrophils 71.8 % (42.0-75.0); Hematocrit 32.3 % (42.0-52.0); Hemoglobin 9.9 g/dL (14.0-18.0); Mean Corpuscular HGB CONC 30.7 g/dL (32.0-36.0); Mean Corpuscular Hemoglobin 28.4 pg (27.0-31.0); Mean Corpuscular Volume 92.6 fl (78.0-98.0); RBC Distribution Width 18.1 % (11.5-14.5); Red Blood Cell (RBC) Count 3.49 mill/uL (4.70-6.10); White Blood Cell (WBC) Count 6.3 10x3/uL (4.8-10.8)
[2023-05-10 04:38] LABS: Platelet Count 84 10x3/uL (130-400)
[2023-05-10 04:51] LABS: Anion Gap 20 mmol/L (10-20); BUN (Urea Nitrogen) 41 mg/dL (8.4-25.7); Calc. Creatinine Clearance 19 mL/min (70-130); Calcium 9.6 mg/dL (7.8-10.44); Carbon Dioxide 26 mmol/L (23-31); Chloride 93 mmol/L (98-107); Estimated GFR 10; Glucose 90 mg/dL (80-115); Potassium 4.2 mmol/L (3.5-5.1); Sodium 135 mmol/L (136-145)
[2023-05-10] MEDS: HYDROcodone/Acetaminophen 5/325 mg Tablet PO PRN ×3 (05:57→21:58)
[2023-05-10] MEDS: Rifampin 300 MG CAP PO SCH ×2 (09:43→22:00)
[2023-05-10] MEDS: Aspirin Chewable 81 MG TAB PO SCH (09:43)
[2023-05-10] MEDS: Clopidogrel Bisulfate 75 MG TAB PO SCH (09:43)
[2023-05-10] MEDS: Heparin 5,000 UNITS/ML VIAL SC SCH ×3 (09:52→21:56)
[2023-05-10] MEDS: Ipratropium/Albuterol 3 ML NEB NEB PRN (16:12)
[2023-05-10] MEDS: Calcium Carbonate 500 MG ChewTAB PO PRN (18:06)
[2023-05-11 04:00] LABS: %Neutrophils 73.6 % (42.0-75.0); Hematocrit 34.1 % (42.0-52.0); Hemoglobin 10.5 g/dL (14.0-18.0); Mean Corpuscular HGB CONC 30.8 g/dL (32.0-36.0); Mean Corpuscular Hemoglobin 28.4 pg (27.0-31.0); Mean Corpuscular Volume 92.2 fl (78.0-98.0); RBC Distribution Width 18.2 % (11.5-14.5); White Blood Cell (WBC) Count 7.3 10x3/uL (4.8-10.8)
[2023-05-11 04:01] LABS: #Basophils 0.1 thou/uL (0.0-0.2); #Eosinphils 0.2 thou/uL (0.0-0.7); #Monocytes 0.6 thou/uL (0.11-0.59); #Neutrophils 5.4 thou/uL (1.40-6.50); %Basophils 1.2 % (0.0-1.0); %Eosinophils 2.5 % (0.0-10.0); %Lymphocytes 14.1 % (21.0-51.0); %Monocytes 8.2 % (0.0-10.0)
[2023-05-11 04:04] LABS: Platelet Count 76 10x3/uL (130-400)
[2023-05-11 05:10] LABS: Anion Gap 20 mmol/L (10-20); BUN (Urea Nitrogen) 50 mg/dL (8.4-25.7); Calc. Creatinine Clearance 16 mL/min (70-130); Calcium 9.9 mg/dL (7.8-10.44); Carbon Dioxide 24 mmol/L (23-31); Chloride 91 mmol/L (98-107); Estimated GFR 8; Glucose 79 mg/dL (80-115); Potassium 4.5 mmol/L (3.5-5.1); Sodium 130 mmol/L (136-145)
[2023-05-11] MEDS: HYDROcodone/Acetaminophen 5/325 mg Tablet PO PRN ×3 (07:25→22:29)
[2023-05-11] MEDS: Aspirin Chewable 81 MG TAB PO SCH (07:30)
[2023-05-11] MEDS: Heparin 5,000 UNITS/ML VIAL SC SCH (07:30)
[2023-05-11] MEDS: Clopidogrel Bisulfate 75 MG TAB PO SCH (07:30)
[2023-05-11] MEDS ORDERED: Heparin 10,000 UNITS/ 10 ML VIAL ONE (09:10)
[2023-05-11 10:07] LABS: Vancomycin, Random 22.7 ug/mL (See Comment)
[2023-05-11] MEDS: Rifampin 300 MG CAP PO SCH ×2 (15:19→21:17)
[2023-05-11] MEDS ORDERED: Vancomycin HCl 500 MG in Sodium Chloride 0.9% 250 ML 250 ML IVPB SCH (17:00)
[2023-05-11] MEDS ORDERED: Vancomycin HCl 500 MG in Sodium Chloride 0.9% 100 ML IVPB SCH (18:15)
[2023-05-11] MEDS: Calcium Carbonate 500 MG ChewTAB PO PRN (21:17)
[2023-05-11] MEDS: Melatonin 3 MG TAB PO PRN (22:29)
[2023-05-12] MEDS: HYDROcodone/Acetaminophen 5/325 mg Tablet PO PRN ×3 (04:15→20:47)
[2023-05-12] MEDS: Aspirin Chewable 81 MG TAB PO SCH (09:21)
[2023-05-12] MEDS: Clopidogrel Bisulfate 75 MG TAB PO SCH (09:21)
[2023-05-12] MEDS: Rifampin 300 MG CAP PO SCH ×2 (09:25→20:37)
[2023-05-12 09:27] LABS: #Basophils 0.1 thou/uL (0.0-0.2); #Eosinphils 0.2 thou/uL (0.0-0.7); #Monocytes 0.7 thou/uL (0.11-0.59); #Neutrophils 3.7 thou/uL (1.40-6.50); %Basophils 1.5 % (0.0-1.0); %Lymphocytes 13.6 % (21.0-51.0); %Monocytes 12.3 % (0.0-10.0); %Neutrophils 69.2 % (42.0-75.0); Hematocrit 31.9 % (42.0-52.0); Hemoglobin 9.7 g/dL (14.0-18.0); Mean Corpuscular HGB CONC 30.4 g/dL (32.0-36.0); Mean Corpuscular Hemoglobin 28.6 pg (27.0-31.0); Mean Corpuscular Volume 94.1 fl (78.0-98.0); Mean Platelet Volume 12.7 fL (7.4-10.4); Platelet Count 56 10x3/uL (130-400); RBC Distribution Width 18.5 % (11.5-14.5); Red Blood Cell (RBC) Count 3.39 mill/uL (4.70-6.10); White Blood Cell (WBC) Count 5.3 10x3/uL (4.8-10.8)
[2023-05-12] MEDS: Morphine 2 MG/ML VIAL SLOW IVP PRN (09:34)
[2023-05-12 09:39] LABS: Anion Gap 17 mmol/L (10-20); BUN (Urea Nitrogen) 37 mg/dL (8.4-25.7); Calc. Creatinine Clearance 20 mL/min (70-130); Carbon Dioxide 28 mmol/L (23-31); Chloride 92 mmol/L (98-107); Estimated GFR 11; Glucose 92 mg/dL (80-115); Potassium 4.1 mmol/L (3.5-5.1); Sodium 133 mmol/L (136-145)
[2023-05-12] MEDS ORDERED: Morphine 2 MG/ML VIAL SLOW IVP PRN (11:11)
[2023-05-12] MEDS: Calcium Carbonate 500 MG ChewTAB PO PRN (12:14)
[2023-05-12] MEDS ORDERED: Morphine 2 MG/ML VIAL SLOW IVP SCH (12:15)
[2023-05-12] MEDS: Melatonin 3 MG TAB PO PRN (23:42)
[2023-05-13] MEDS: HYDROcodone/Acetaminophen 5/325 mg Tablet PO PRN ×3 (05:28→18:56)
[2023-05-13 07:39] LABS: Vancomycin, Random 22.3 ug/mL (See Comment)
[2023-05-13] MEDS: Rifampin 300 MG CAP PO SCH ×2 (12:21→21:20)
[2023-05-13] MEDS: Clopidogrel Bisulfate 75 MG TAB PO SCH (12:21)
[2023-05-13] MEDS: Aspirin Chewable 81 MG TAB PO SCH (12:21)
[2023-05-13] MEDS: Ipratropium/Albuterol 3 ML NEB NEB PRN ×3 (14:37→23:16)
[2023-05-13] MEDS ORDERED: Vancomycin HCl 500 MG in Sodium Chloride 0.9% 100 ML IVPB SCH (17:00)
[2023-05-14] MEDS: Ipratropium/Albuterol 3 ML NEB NEB PRN (06:46)
[2023-05-14] MEDS: Rifampin 300 MG CAP PO SCH ×2 (08:59→20:07)
[2023-05-14] MEDS: Clopidogrel Bisulfate 75 MG TAB PO SCH (08:59)
[2023-05-14] MEDS: Aspirin Chewable 81 MG TAB PO SCH (08:59)
[2023-05-14] MEDS: Morphine 4 MG/ML VIAL SLOW IVP PRN (09:42)
[2023-05-14] MEDS ORDERED: Ipratropium/Albuterol 3 ML NEB IPPB SCH (13:02)
[2023-05-14] MEDS ORDERED: Ondansetron PF 4 MG/2 ML Vial IVP PRN (13:03)
[2023-05-14] MEDS ORDERED: Ondansetron PF 4 MG/2 ML Vial IVP SCH (13:04)
[2023-05-14] MEDS ORDERED: Famotidine/PF 20 mg/2ml Vial SLOW IVP SCH (13:15)
[2023-05-14] MEDS: HYDROcodone/Acetaminophen 5/325 mg Tablet PO PRN ×2 (16:32→21:41)
[2023-05-14] MEDS ORDERED: guaiFENesin/Codeine 200 mg/20 mg 10 ml Cup PO SCH (16:45)
[2023-05-14] MEDS: Ipratropium/Albuterol 3 ML NEB NEB SCH (18:42)
[2023-05-15] MEDS: Ipratropium/Albuterol 3 ML NEB NEB SCH ×5 (00:59→19:05)
[2023-05-15] MEDS ORDERED: Famotidine 20 MG TAB PO SCH (03:45)
[2023-05-15] MEDS ORDERED: diphenhydrAMINE 25 MG CAP PO SCH (03:45)
[2023-05-15] MEDS ORDERED: Vancomycin Dialysis Sliding Scale (Wt > 99) FS SCH (07:15)
[2023-05-15] MEDS: diphenhydrAMINE 50 MG/ML VIAL IVP PRN ×2 (08:16→18:59)
[2023-05-15] MEDS: Clopidogrel Bisulfate 75 MG TAB PO SCH (08:17)
[2023-05-15] MEDS: HYDROcodone/Acetaminophen 5/325 mg Tablet PO PRN ×2 (08:17→20:36)
[2023-05-15] MEDS: Aspirin Chewable 81 MG TAB PO SCH (08:18)
[2023-05-15] MEDS: Rifampin 300 MG CAP PO SCH ×2 (11:07→23:18)
[2023-05-15 11:28] LABS: Vancomycin, Random 11.9 ug/mL (See Comment)
[2023-05-15] MEDS: Albumin 25% 25 GM/100 ML BOT IVPB SCH ×2 (13:55→17:17)
[2023-05-15] MEDS ORDERED: VANCOMYCIN 1.25 GM/250 ML BAG 1.25 GM in Premix Bag 1 BAG IVPB SCH (17:00)
[2023-05-15] MEDS ORDERED: Vancomycin 1 GM in Premix Bag 1 BAG IVPB SCH (17:00)
[2023-05-15] MEDS: Melatonin 3 MG TAB PO PRN (20:35)
[2023-05-15] MEDS: Morphine 4 MG/ML VIAL SLOW IVP PRN (23:34)
[2023-05-16] MEDS: Ipratropium/Albuterol 3 ML NEB NEB SCH ×4 (00:25→19:09)
[2023-05-16] MEDS: Albumin 25% 25 GM/100 ML BOT IVPB SCH ×2 (01:10→05:02)
[2023-05-16] MEDS: diphenhydrAMINE 50 MG/ML VIAL IVP PRN (04:55)
[2023-05-16] MEDS ORDERED: Ipratropium/Albuterol 3 ML NEB NEB PRN (05:13)
[2023-05-16] MEDS: Aspirin Chewable 81 MG TAB PO SCH (10:27)
[2023-05-16] MEDS: Rifampin 300 MG CAP PO SCH ×2 (10:27→19:34)
[2023-05-16] MEDS: Clopidogrel Bisulfate 75 MG TAB PO SCH (10:27)
[2023-05-16] MEDS: Morphine 4 MG/ML VIAL SLOW IVP PRN (10:30)
[2023-05-16] MEDS ORDERED: Famotidine/PF 20 mg/2ml Vial SLOW IVP SCH (10:40)
[2023-05-16] MEDS ORDERED: methylPREDNISolone Sod Succ/PF 125 MG/2 ML VIAL IVP SCH (10:45)
[2023-05-16] MEDS ORDERED: ALPRAZolam 0.5 MG TAB PO PRN (15:38)
[2023-05-16 15:43] LABS: Actual Bicarbonate (HCO3a) 24.1 mEq/L (22-28); Base Excess (BEa) 0.7 mEq/L (-2.0 to +3.0); CO2 Tension 33.9 mmHg (35.0-45.0); Calcium, Ionized (arterial) 1.21 mmol/L (1.12-1.30); Carboxyhemoglobin (COHb) 1.4 gm% (0.0-3.0); Hematocrit-ABG 29 % (42.0-52.0); Hemoglobin (Hb) 9.8 g/dL (14.0-18.0); O2 Tension (PaO2), arterial 65.1 mmHg (> 80.0); Potassium - ABG Lab 4.77 mmol/L (3.70-5.30); pH, Arterial 7.469 (7.35-7.45)
[2023-05-16 15:44] LABS: ALV-art Gradient 120.685 mmHg (0-20); Puncture Site LBA
[2023-05-16 16:19] LABS: Troponin I 0.073 ng/mL (< 0.028)
[2023-05-16] MEDS: methylPREDNISolone Sod Succ 40 MG VIAL IVP SCH (19:33)
[2023-05-16] MEDS: HYDROcodone/Acetaminophen 5/325 mg Tablet PO PRN (19:36)
[2023-05-17] MEDS: Ipratropium/Albuterol 3 ML NEB NEB SCH ×4 (00:31→18:41)
[2023-05-17] MEDS: guaiFENesin/Codeine 200 mg/20 mg 10 ml Cup PO PRN (04:21)
[2023-05-17] MEDS: HYDROcodone/Acetaminophen 5/325 mg Tablet PO PRN (04:21)
[2023-05-17 04:57] LABS: #Monocytes 0.4 thou/uL (0.11-0.59); #Neutrophils 4.2 thou/uL (1.40-6.50); %Basophils 0.6 % (0.0-1.0); %Monocytes 7.8 % (0.0-10.0); Hematocrit 28.4 % (42.0-52.0); Hemoglobin 8.7 g/dL (14.0-18.0); Mean Corpuscular HGB CONC 30.6 g/dL (32.0-36.0); Mean Corpuscular Hemoglobin 29.2 pg (27.0-31.0); Mean Corpuscular Volume 95.3 fl (78.0-98.0); Mean Platelet Volume 14.1 fL (7.4-10.4); RBC Distribution Width 19.2 % (11.5-14.5); Red Blood Cell (RBC) Count 2.98 mill/uL (4.70-6.10); White Blood Cell (WBC) Count 5.1 10x3/uL (4.8-10.8)
[2023-05-17 05:06] LABS: Platelet Count 53 10x3/uL (130-400)
[2023-05-17 05:23] LABS: Anion Gap 25 mmol/L (10-20); BUN (Urea Nitrogen) 44 mg/dL (8.4-25.7); Calc. Creatinine Clearance 21 mL/min (70-130); Calcium 10.5 mg/dL (7.8-10.44); Carbon Dioxide 22 mmol/L (23-31); Chloride 91 mmol/L (98-107); Estimated GFR 11; Glucose 113 mg/dL (80-115); Potassium 5.5 mmol/L (3.5-5.1); Sodium 132 mmol/L (136-145)
[2023-05-17] MEDS: Loratadine 10 MG TAB PO SCH (09:58)
[2023-05-17] MEDS: Clopidogrel Bisulfate 75 MG TAB PO SCH (09:58)
[2023-05-17] MEDS: Aspirin Chewable 81 MG TAB PO SCH (09:58)
[2023-05-17] MEDS: methylPREDNISolone Sod Succ 40 MG VIAL IVP SCH ×2 (09:59→21:14)
[2023-05-17] MEDS: Famotidine/PF 20 mg/2ml Vial SLOW IVP SCH (09:59)
[2023-05-17] MEDS: Rifampin 300 MG CAP PO SCH ×2 (10:05→21:14)
[2023-05-17] MEDS: ALPRAZolam 0.5 MG TAB PO PRN (10:06)
[2023-05-17 10:44] LABS: Anion Gap 19 mmol/L (10-20); BUN (Urea Nitrogen) 48 mg/dL (8.4-25.7); Calc. Creatinine Clearance 20 mL/min (70-130); Calcium 10.7 mg/dL (7.8-10.44); Carbon Dioxide 23 mmol/L (23-31); Chloride 93 mmol/L (98-107); Estimated GFR 10; Glucose 98 mg/dL (80-115); Potassium 5.1 mmol/L (3.5-5.1); Sodium 130 mmol/L (136-145)
[2023-05-17] MEDS ORDERED: LOKELMA 10 GM PACKET PO SCH (13:15)
[2023-05-17] MEDS ORDERED: Dextrose 25% Abboject 10 ML SYRINGE SLOW IVP SCH (13:15)
[2023-05-17] MEDS ORDERED: Calcium Gluc 4.6 MEQ/10 ML (100 MG/ML) SLOW IVP SCH (13:15)
[2023-05-17] MEDS ORDERED: Insulin Regular 300 UNITS/3 ML VIAL IVP SCH (13:15)
[2023-05-17] MEDS ORDERED: Dextrose 50% Abboject 50 ML SYRINGE SLOW IVP SCH (13:30)
[2023-05-17 13:49] LABS: Actual Bicarbonate (HCO3a) 22.9 mEq/L (22-28); Base Excess (BEa) -0.4 mEq/L (-2.0 to +3.0); CO2 Tension 32.4 mmHg (35.0-45.0); Carboxyhemoglobin (COHb) 0.9 gm% (0.0-3.0); Hematocrit-ABG 30 % (42.0-52.0); Hemoglobin (Hb) 10.1 g/dL (14.0-18.0); O2 Tension (PaO2), arterial 66.2 mmHg (> 80.0); Potassium - ABG Lab 5.64 mmol/L (3.70-5.30); pH, Arterial 7.467 (7.35-7.45)
[2023-05-17 13:52] LABS: Puncture Site LRA
[2023-05-17] MEDS ORDERED: Albuterol 200 PUFF (6.7GM INHALER) INH PRN (16:53)
[2023-05-17] MEDS: Melatonin 3 MG TAB PO PRN (21:14)
[2023-05-18] MEDS: Ipratropium/Albuterol 3 ML NEB NEB SCH ×5 (00:46→23:22)
[2023-05-18] MEDS: HYDROcodone/Acetaminophen 5/325 mg Tablet PO PRN ×2 (04:39→18:07)
[2023-05-18] MEDS: ALPRAZolam 0.5 MG TAB PO PRN (04:41)
[2023-05-18 06:56] LABS: #Basophils 0.1 thou/uL (0.0-0.2); #Monocytes 0.6 thou/uL (0.11-0.59); #Neutrophils 5.2 thou/uL (1.40-6.50); %Basophils 0.9 % (0.0-1.0); %Eosinophils 0.1 % (0.0-10.0); %Lymphocytes 11.9 % (21.0-51.0); %Monocytes 9.5 % (0.0-10.0); %Neutrophils 77.3 % (42.0-75.0); Hematocrit 28.1 % (42.0-52.0); Hemoglobin 8.6 g/dL (14.0-18.0); Mean Corpuscular HGB CONC 30.6 g/dL (32.0-36.0); Mean Corpuscular Hemoglobin 29.1 pg (27.0-31.0); Mean Corpuscular Volume 94.9 fl (78.0-98.0); RBC Distribution Width 19.1 % (11.5-14.5); Red Blood Cell (RBC) Count 2.96 mill/uL (4.70-6.10); White Blood Cell (WBC) Count 6.8 10x3/uL (4.8-10.8)
[2023-05-18 06:57] LABS: Platelet Count 63 10x3/uL (130-400)
[2023-05-18 07:15] LABS: Vancomycin, Random 17.7 ug/mL (See Comment)
[2023-05-18 07:17] LABS: Anion Gap 20 mmol/L (10-20); BUN (Urea Nitrogen) 36 mg/dL (8.4-25.7); Calc. Creatinine Clearance 26 mL/min (70-130); Calcium 10.3 mg/dL (7.8-10.44); Carbon Dioxide 26 mmol/L (23-31); Chloride 93 mmol/L (98-107); Estimated GFR 14; Glucose 106 mg/dL (80-115); Potassium 4.7 mmol/L (3.5-5.1); Sodium 134 mmol/L (136-145)
[2023-05-18 11:34] VITALS: BMI 32.0
[2023-05-18] MEDS: Loratadine 10 MG TAB PO SCH (12:09)
[2023-05-18] MEDS: Aspirin Chewable 81 MG TAB PO SCH (12:09)
[2023-05-18] MEDS: Rifampin 300 MG CAP PO SCH ×2 (12:09→21:06)
[2023-05-18] MEDS: Clopidogrel Bisulfate 75 MG TAB PO SCH (12:09)
[2023-05-18] MEDS: Famotidine/PF 20 mg/2ml Vial SLOW IVP SCH (12:09)
[2023-05-18] MEDS: methylPREDNISolone Sod Succ 40 MG VIAL IVP SCH (12:09)
[2023-05-18] MEDS ORDERED: Vancomycin 1 GM in Premix Bag 1 BAG IVPB SCH (17:00)
[2023-05-18] MEDS: Melatonin 3 MG TAB PO PRN (18:07)
[2023-05-19] MEDS: methylPREDNISolone Sod Succ 40 MG VIAL IVP SCH ×4 (00:52→20:40)
[2023-05-19] MEDS: ALPRAZolam 0.5 MG TAB PO PRN ×2 (03:02→22:35)
[2023-05-19 05:58] LABS: #Basophils 0.1 thou/uL (0.0-0.2); #Eosinphils 0.1 thou/uL (0.0-0.7); #Monocytes 0.9 thou/uL (0.11-0.59); #Neutrophils 4.9 thou/uL (1.40-6.50); %Basophils 1.5 % (0.0-1.0); %Eosinophils 1.9 % (0.0-10.0); %Lymphocytes 12.4 % (21.0-51.0); %Monocytes 12.6 % (0.0-10.0); %Neutrophils 70.9 % (42.0-75.0); Hematocrit 29.3 % (42.0-52.0); Mean Corpuscular HGB CONC 30.7 g/dL (32.0-36.0); Mean Corpuscular Hemoglobin 29.8 pg (27.0-31.0); Mean Platelet Volume 12.9 fL (7.4-10.4); RBC Distribution Width 19.5 % (11.5-14.5); Red Blood Cell (RBC) Count 3.02 mill/uL (4.70-6.10); White Blood Cell (WBC) Count 6.9 10x3/uL (4.8-10.8)
[2023-05-19 06:02] LABS: Platelet Count 61 10x3/uL (130-400)
[2023-05-19 06:19] LABS: Anion Gap 17 mmol/L (10-20); BUN (Urea Nitrogen) 29 mg/dL (8.4-25.7); Calc. Creatinine Clearance 30 mL/min (70-130); Calcium 9.8 mg/dL (7.8-10.44); Carbon Dioxide 28 mmol/L (23-31); Chloride 95 mmol/L (98-107); Estimated GFR 17; Glucose 104 mg/dL (80-115); Potassium 3.5 mmol/L (3.5-5.1); Sodium 136 mmol/L (136-145)
[2023-05-19] MEDS: Ipratropium/Albuterol 3 ML NEB NEB SCH ×4 (07:16→22:14)
[2023-05-19] MEDS: HYDROcodone/Acetaminophen 5/325 mg Tablet PO PRN ×3 (09:24→22:35)
[2023-05-19 09:45] LABS: Magnesium 2.2 mg/dL (1.6-2.6); Phosphorus 3.5 mg/dL (2.3-4.7)
[2023-05-19] MEDS: Loratadine 10 MG TAB PO SCH (11:47)
[2023-05-19] MEDS: Clopidogrel Bisulfate 75 MG TAB PO SCH (11:47)
[2023-05-19] MEDS: Aspirin Chewable 81 MG TAB PO SCH (11:47)
[2023-05-19] MEDS: Famotidine/PF 20 mg/2ml Vial SLOW IVP SCH (11:47)
[2023-05-19] MEDS: Rifampin 300 MG CAP PO SCH ×2 (11:52→20:36)
[2023-05-19] MEDS: Rosuvastatin 10 MG TAB PO SCH (20:36)
[2023-05-20] MEDS: Ipratropium/Albuterol 3 ML NEB NEB SCH ×4 (07:31→23:17)
[2023-05-20] MEDS ORDERED: Carvedilol 3.125 MG TAB PO SCH (08:00)
[2023-05-20] MEDS: methylPREDNISolone Sod Succ 40 MG VIAL IVP SCH ×3 (08:23→19:45)
[2023-05-20] MEDS: Loratadine 10 MG TAB PO SCH (08:24)
[2023-05-20] MEDS: Clopidogrel Bisulfate 75 MG TAB PO SCH (08:24)
[2023-05-20] MEDS: Famotidine/PF 20 mg/2ml Vial SLOW IVP SCH ×2 (08:24→09:23)
[2023-05-20] MEDS: Aspirin Chewable 81 MG TAB PO SCH (08:24)
[2023-05-20] MEDS: HYDROcodone/Acetaminophen 5/325 mg Tablet PO PRN ×2 (08:31→19:44)
[2023-05-20] MEDS: Rifampin 300 MG CAP PO SCH ×2 (13:45→19:45)
[2023-05-20] MEDS ORDERED: VANCOMYCIN 1.25 GM/250 ML BAG 1.25 GM in Premix Bag 1 BAG IVPB SCH (17:00)
[2023-05-20] MEDS: Carvedilol 3.125 MG TAB PO SCH (18:14)
[2023-05-20] MEDS: Sacubitril 24MG/Valsartan 26 MG TAB PO SCH (19:43)
[2023-05-20] MEDS: Rosuvastatin 10 MG TAB PO SCH (19:45)
[2023-05-20] MEDS: ALPRAZolam 0.5 MG TAB PO PRN (23:26)
[2023-05-21] MEDS: Ipratropium/Albuterol 3 ML NEB NEB SCH ×3 (07:16→19:01)
[2023-05-21] MEDS: Famotidine/PF 20 mg/2ml Vial SLOW IVP SCH (08:56)
[2023-05-21] MEDS: Loratadine 10 MG TAB PO SCH (08:57)
[2023-05-21] MEDS: methylPREDNISolone Sod Succ 40 MG VIAL IVP SCH ×2 (08:57→20:20)
[2023-05-21] MEDS: Sacubitril 24MG/Valsartan 26 MG TAB PO SCH ×2 (08:57→20:19)
[2023-05-21] MEDS: Clopidogrel Bisulfate 75 MG TAB PO SCH (08:57)
[2023-05-21] MEDS: Carvedilol 3.125 MG TAB PO SCH ×2 (08:57→17:26)
[2023-05-21] MEDS: Aspirin Chewable 81 MG TAB PO SCH (08:57)
[2023-05-21] MEDS: HYDROcodone/Acetaminophen 5/325 mg Tablet PO PRN ×2 (08:58→20:19)
[2023-05-21] MEDS: Rifampin 300 MG CAP PO SCH ×2 (08:58→20:20)
[2023-05-21 10:38] LABS: #Basophils 0.1 thou/uL (0.0-0.2); #Eosinphils 0.2 thou/uL (0.0-0.7); #Monocytes 0.5 thou/uL (0.11-0.59); #Neutrophils 5.1 thou/uL (1.40-6.50); %Basophils 1.1 % (0.0-1.0); %Eosinophils 2.6 % (0.0-10.0); %Lymphocytes 11.8 % (21.0-51.0); %Neutrophils 77.2 % (42.0-75.0); Hematocrit 30.4 % (42.0-52.0); Mean Corpuscular HGB CONC 29.6 g/dL (32.0-36.0); Mean Corpuscular Hemoglobin 29.3 pg (27.0-31.0); Mean Platelet Volume 12.5 fL (7.4-10.4); RBC Distribution Width 20.4 % (11.5-14.5); Red Blood Cell (RBC) Count 3.07 mill/uL (4.70-6.10); White Blood Cell (WBC) Count 6.6 10x3/uL (4.8-10.8)
[2023-05-21 10:39] LABS: Platelet Count 61 10x3/uL (130-400)
[2023-05-21 10:51] LABS: Anion Gap 17 mmol/L (10-20); BUN (Urea Nitrogen) 38 mg/dL (8.4-25.7); Calc. Creatinine Clearance 27 mL/min (70-130); Calcium 9.6 mg/dL (7.8-10.44); Carbon Dioxide 27 mmol/L (23-31); Chloride 95 mmol/L (98-107); Estimated GFR 15; Glucose 104 mg/dL (80-115); Potassium 3.8 mmol/L (3.5-5.1); Sodium 135 mmol/L (136-145)
[2023-05-21] MEDS: Morphine 4 MG/ML VIAL SLOW IVP PRN (11:21)
[2023-05-21] MEDS: ALPRAZolam 0.5 MG TAB PO PRN (20:19)
[2023-05-21] MEDS: Rosuvastatin 10 MG TAB PO SCH (20:20)
[2023-05-22] MEDS: Ipratropium/Albuterol 3 ML NEB NEB SCH ×4 (00:05→18:49)
[2023-05-22] MEDS: guaiFENesin/Codeine 200 mg/20 mg 10 ml Cup PO PRN (01:10)
[2023-05-22] MEDS: Aspirin Chewable 81 MG TAB PO SCH (07:41)
[2023-05-22] MEDS: Clopidogrel Bisulfate 75 MG TAB PO SCH (07:41)
[2023-05-22] MEDS: Famotidine/PF 20 mg/2ml Vial SLOW IVP SCH (07:41)
[2023-05-22] MEDS: Loratadine 10 MG TAB PO SCH (07:41)
[2023-05-22] MEDS: Sacubitril 24MG/Valsartan 26 MG TAB PO SCH (07:41)
[2023-05-22] MEDS: methylPREDNISolone Sod Succ 40 MG VIAL IVP SCH (07:42)
[2023-05-22 08:16] LABS: Vancomycin, Random 21.1 ug/mL (See Comment)
[2023-05-22] MEDS: ALPRAZolam 0.5 MG TAB PO PRN (09:33)
[2023-05-22] MEDS: Carvedilol 3.125 MG TAB PO SCH ×2 (09:33→17:16)
[2023-05-22] MEDS: Rifampin 300 MG CAP PO SCH (14:18)
[2023-05-22] MEDS ORDERED: Vancomycin 1 GM in Premix Bag 1 BAG IVPB SCH (17:00)
[2023-05-22 17:30] VITALS: BP 174/81; TEMP 97.8
[2023-05-22] MEDS: HYDROcodone/Acetaminophen 5/325 mg Tablet PO PRN (17:31)
[2023-05-23 15:13] LABS: Heparin-Induced Ab (HITA) 0.073 OD (0.000-0.400)
[2023-05-24] MEDS ORDERED: Loratadine 10 MG TAB PO SCH (09:00)
== END 2023-05-22 19:45 | disposition home health service (06) | DRG 856 ==
LOC: ERS 16:33 → 2NO 19:55 → SURG A 05-05 09:50 → 2NO 05-05 10:11 → SJJU 05-05 10:17 → 2NO 05-05 10:23 → SURG A 05-05 14:04 → SJJU 05-05 15:17 → 2NO 05-05 23:16
PROVIDERS: ADMIT Student in an Organized Health Care Education/Training Program; ATTEND Internal Medicine
PROC: 0PC00ZZ Extirpation of Matter from Sternum, Open Approach (ICD-10-PCS; principal; 2023-05-05)
PROC: 5A1D70Z Performance of Urinary Filtration, Intermittent, Less than 6 Hours Per Day (ICD-10-PCS; 2023-05-06)
PROC: 5A1D70Z Performance of Urinary Filtration, Intermittent, Less than 6 Hours Per Day (ICD-10-PCS; 2023-05-08)
PROC: 5A1D70Z Performance of Urinary Filtration, Intermittent, Less than 6 Hours Per Day (ICD-10-PCS; 2023-05-11)
PROC: 5A1D70Z Performance of Urinary Filtration, Intermittent, Less than 6 Hours Per Day (ICD-10-PCS; 2023-05-13)
PROC: 30233J1 Transfusion of Nonautologous Serum Albumin into Peripheral Vein, Percutaneous Approach (ICD-10-PCS; 2023-05-15)
PROC: 4A133R1 Monitoring of Arterial Saturation, Peripheral, Percutaneous Approach (ICD-10-PCS; 2023-05-16)
PROC: 5A1D70Z Performance of Urinary Filtration, Intermittent, Less than 6 Hours Per Day (ICD-10-PCS; 2023-05-18)
PROC: 5A1D70Z Performance of Urinary Filtration, Intermittent, Less than 6 Hours Per Day (ICD-10-PCS; 2023-05-19)
PROC: 5A1D70Z Performance of Urinary Filtration, Intermittent, Less than 6 Hours Per Day (ICD-10-PCS; 2023-05-20)
PROC: 5A1D70Z Performance of Urinary Filtration, Intermittent, Less than 6 Hours Per Day (ICD-10-PCS; 2023-05-22)
DX: T81.42XA Infection following a procedure, deep incisional surgical site, initial encounter (principal); I50.23 Acute on chronic systolic (congestive) heart failure; J96.01 Acute respiratory failure with hypoxia; N18.6 End stage renal disease; M86.8X8 Other osteomyelitis, other site; L02.213 Cutaneous abscess of chest wall; E87.1 Hypo-osmolality and hyponatremia; I13.2 Hypertensive heart and chronic kidney disease with heart failure and with stage 5 chronic kidney disease, or end stage renal disease; J44.1 Chronic obstructive pulmonary disease with (acute) exacerbation; R78.81 Bacteremia; I47.20 Ventricular tachycardia, unspecified; Z99.2 Dependence on renal dialysis; E87.6 Hypokalemia; I25.10 Atherosclerotic heart disease of native coronary artery without angina pectoris; D63.1 Anemia in chronic kidney disease; E78.5 Hyperlipidemia, unspecified; Z95.1 Presence of aortocoronary bypass graft; Z98.890 Other specified postprocedural states; F17.210 Nicotine dependence, cigarettes, uncomplicated; Z88.8 Allergy status to other drugs, medicaments and biological substances; Z79.82 Long term (current) use of aspirin; Z79.899 Other long term (current) drug therapy; E87.5 Hyperkalemia; I25.5 Ischemic cardiomyopathy; D69.6 Thrombocytopenia, unspecified; Y83.8 Other surgical procedures as the cause of abnormal reaction of the patient, or of later complication, without mention of misadventure at the time of the procedure; B95.62 Methicillin resistant Staphylococcus aureus infection as the cause of diseases classified elsewhere
CPT/HCPCS: 36415; 36416; 36600; 71045; 71250; 80048; 80053; 80202; 82805; 83735; 83880; 84100; 84145; 84484; 85025; 85027; 85379; 85610; 85652; 85730; 86140; 87040; 87070; 87077; 87149; 87186; 87205; 90935; 93005; 93010; 93306; 94640; 97139; G0257; J0171; J0612; J0692; J1200; J1644; J1815; J2270; J2272; J2405; J2543; J2704; J2920; J2930; J3010; J3370; J3370-JW; J3490; J7620; J7999; P9047; S0020; S0028